=== PATIENT | female | born 1960 | race Caucasian/White ===

== ENCOUNTER 2017-12-23 17:09 | Inpatient (IN) | payer OTHER ==
[~2017-12-23] VITALS: Ht 157.5 cm; Wt 70.5 kg
[2017-12-23 17:38] LABS: ABSOLUTE BASOPHIL COUNT 0 /CUMM (0.0-0.2); ABSOLUTE EOSINOPHIL COUNT 0.2 /CUMM (0.0-0.7); ABSOLUTE GRANULOCYTE CT 3.5 /CUMM (1.4-6.5); ABSOLUTE LYMPH COUNT 2.6 /CUMM (1.2-3.4); ABSOLUTE MONOCYTE COUNT 0.7 /CUMM (0.10-0.60); BASOPHIL % 0.3 % (0.0-2.0); EOSINOPHIL % 2.5 % (0-5); GRANULOCYTE % 49.7 % (42.2-75.2); HEMATOCRIT 39.8 % (37-47); MEAN CORPUSCULAR HGB CONC 33.5 G/DL (33.0-37.0); MEAN CORPUSCULAR VOLUME 89.3 FL (81.0-99.0); MEAN PLATELET VOLUME 8.3 FL (7.4-10.4); PLATELET COUNT 236 /CUMM (130-400); RBC DISTRIBUTION WIDTH 13.6 % (11.5-14.5); RED BLOOD CELL CT 4.45 /CUMM (4.20-5.40)
--- NOTE | 2017-12-23 17:54 | ED PSYCHIATRIC COMPLAINT ---
History of Present Illness General Chief Complaint: Psychiatric Related Complaint Stated Complaint: PT WANTS TO KILL HERSELF Source: patient, old records, Epic Exam Limitations: no limitations Vital Signs & Intake/Output Vital Signs & Intake/Output Vital Signs Date Time Temp Pulse Resp B/P B/P Pulse O2 O2 Flow FiO2 Mean Ox Delivery Rate 12/24 1550 97.6 67 18 98/60 98 Room Air 12/24 1255 97.6 72 17 102/64 98 Room Air 12/24 1136 98.0 80 18 118/68 97 Room Air 12/24 0624 97.5 90 18 101/52 96 Room Air 12/24 0159 96.7 84 18 101/52 98 Room Air 12/23 2151 98.1 87 16 117/66 96 Room Air 12/23 1913 Room Air ED Intake and Output 12/24 0000 12/23 1200 Intake Total Output Total Balance Patient 150 lb Weight Weight Reported by Patient Measurement Method Allergies Coded Allergies: Penicillins (SWELLING 12/23/17) Triage Note: TRIAGE: 57 Y/O FEMALE PRESENTS FROM [place] REPORTING "I WISH I WAS ." REPORTS PLAN: "THROW MYSELF OUT IN FRONT OF A CAR, A BUS, OR A TRAIN." ACTIVELY CRYING IN TRIAGE, NO TEARS NOTED. Triage Nurses Notes Reviewed? yes Onset: Just prior to arrival Duration: hour(s):, constant, continues in ED Timing: recent history Severity: moderate, severe Associated Symptoms: suicidal ideation LMP (ages 10-50): post menopausal : No Patient currently breastfeeds: No HPI: 6 days prior to admission patient was sent [facility] for alcohol and benzodiazepine detox. 12 hours prior to admission [facility] for [facility] ideation. One and one half hours prior to admission she was discharged [facility]. She presents with depression sadness secondary to loss of in March and homelessness with thoughts of jumping off out of the car to kill herself. She denies fever chills nausea vomiting diarrhea abdominal pain chest pain shortness breath headache dysuria rash bleeding homicidal ideation hallucination. (Sharad KEATING,Roscoe) Reconcile Medications Alprazolam 0.5 MG TABLET 1 TAB PO TID ANXIETY (Reported) Citalopram Hydrobromide (Citalopram HBr) 40 MG TABLET UNKNOWN (Reported) Escitalopram Oxalate (Lexapro) 10 MG TABLET 1 TAB PO DAILY MENTAL HEALTH ( Reported) Gabapentin 300 MG CAPSULE 1 CAP PO TID UNKNOWN (Reported) Hydroxyzine Hydrochloride (Atarax) 50 MG TAB 2 TAB PO TID PRN UNKNOWN ( Reported) Methadone Hydrochloride (Methadone HCl) 10 MG TABLET 80 MG PO DAILY UNKNOWN ( Reported) Olanzapine 15 MG TABLET 1 TAB PO QPM UNKNOWN (Reported) Trazodone HCl (Unknown Strength) TABLET (Unknown Dose) UNKNOWN (Reported) (Samreen KEATING,Shaggy Combs) Past History Travel History Traveled to [place] past 21 day No Medical History Any Pertinent Medical History? see below for history Cardiovascular: HYPOTENSION Surgical History Surgical History: non-contributory Psychosocial History What is your primary language Portuguese Tobacco Use: Current Not Daily ETOH Use: occasional use Illicit Drug Use: METHADONE CLINIC Family History Hx Contributory? No (Roscoe Orourke MD) Review of Systems Review of Systems Constitutional: Reports: no symptoms. EENTM: Reports: no symptoms. Respiratory: Reports: no symptoms. Cardiovascular: Reports: no symptoms. GI: Reports: no symptoms. Genitourinary: Reports: no symptoms. Musculoskeletal: Reports: no symptoms. Skin: Reports: no symptoms. Neurological/Psychological: Reports: see HPI, depressed, emotional problems. Hematologic/Endocrine: Reports: no symptoms. Immunologic/Allergic: Reports: no symptoms. All Other Systems: Reviewed and Negative (Roscoe Orourke MD) Physical Exam Physical Exam General Appearance: well developed/nourished, alert, awake, anxious, mild distress Head: atraumatic, normal appearance Eyes: Bilateral: normal appearance, PERRL, EOMI. Ears, Nose, Throat: normal pharynx, normal ENT inspection, hearing grossly normal Neck: normal inspection, supple, full range of motion, no midline tenderness Respiratory: normal breath sounds, chest non-tender, no respiratory distress, quiet respiration, lungs clear Cardiovascular: regular rate/rhythm, normal peripheral pulses, norml femoral pulses equa Gastrointestinal: normal bowel sounds, soft, non-tender, no organomegaly Extremities: normal range of motion, no ligament instability Neurological/Psychiatric: no motor/sensory deficits, awake, agitated, alert, anxious, watermelon inspector II-XII nml as tested, depressed affect, oriented x 3 Appearance/Memory/Insight: disheveled, impaired insight Behavoir/Eye Contact/Speech: avoids eye contact, cooperative, normal speech Thoughts/Hallucinations: no apparent hallucination Skin: intact, normal color, warm/dry SAD PERSONS SAD PERSONS Response Value Age <19 or >45 years? yes 1 Depression/Hopelessness? yes 2 Previous Attempts/Psych Care yes 1 Excessive Ethanol/Drug Use? yes 1 Rational Thinking Loss? yes 2 Single//? yes 1 Social Support? has no support 1 Stated Future Intent? yes 2 Total 11 SAD PERSONS Done? yes (Sharad KEATING,Roscoe) Progress Differential Diagnosis: drug intoxication, drug overdose, drug withdrawal, electrolyte abnormality, hypoglycemia Plan of Care: Orders Procedure Date/time Status Regular Diet 12/25 B Active Lab Add-on Test 12/24 1620 Active URINE 12/24 1620 Active Lab Add-on Test 12/24 1619 Active EKG 12/24 1617 Active Patient Data - inpatient psych 12/24 1611 Active Admit to inpatient psych 12/24 1611 Active Continuous Observation Monitor 12/24 1100 Active Continuous Observation Monitor 12/24 0700 Active Vital Signs 12/24 UNK Active Nursing Misc 12/24 UNK Active Alternative Nursing Therapy 12/24 UNK Active Activity/Ambulation 12/24 UNK Active ED CRISIS PSYCH CONSULT 12/23 2055 Active TSH REFLEX 12/23 1718 Active LIPID PANEL 12/23 1718 Active GLYCOSYLATED HGB 12/23 1718 Active DIRECT LDL 12/23 1718 Active Current Medications Sig/Bonilla Start time Last Medication Dose Stop Time Status Admin Escitalopram Oxalate 10 MG 0812/25 0800 UNVr (Lexapro) Methadone HCl 80 MG DAILY@0800 12/25 0800 UNVr (Dolophine) Gabapentin 300 MG TID@0800,1400,2200 12/24 2200 UNVr (Neurontin) Nicotine 2 MG Q2P PRN 12/24 1715 UNVr (Nicotine) Acetaminophen 650 MG Q6P PRN 12/24 1630 UNVr (Tylenol) Al Hydroxide/Mg 30 ML Q4-6 PRN PRN 12/24 1630 UNVr Hydroxide (Maalox Plus) Benztropine Mesylate 1 MG Q6P PRN 12/24 1630 UNVr (Cogentin 1 MG Tablet) Benztropine Mesylate 1 MG Q6P PRN 12/24 1630 UNVr (Cogentin) Gabapentin 300 MG Q6P PRN 12/24 1630 UNVr (Neurontin) Haloperidol 5 MG Q6P PRN 12/24 1630 UNVr (Haldol) Haloperidol 5 MG Q6P PRN 12/24 1630 UNVr (Haldol) Lorazepam 2 MG Q6P PRN 12/24 163 UNVr (Ativan) Magnesium Hydroxide 30 ML AT BEDTIME PRN 12/24 163 UNVr (Milk Of Magnesia) Trazodone HCl 50 MG AT BEDTIME NEED.. 12/24 163 UNVr (Desyrel) Alprazolam 0.5 MG TID 12/23 2199 UNVr 12/24 (Xanax) 12/30 2158 163 Hydroxyzine HCl 50 MG TID 12/23 2199 UNVr 12/24 (Atarax) 163 Olanzapine 15 MG QPM 12/23 220 UNVr (Zyprexa) Laboratory Tests 12/23/17 1921: Urine Opiates Screen < 100, Methadone Screen > 735 H, Barbiturate Screen < 60, Ur Phencyclidine Scrn < 6.00, Amphetamines Screen < 100, U Benzodiazepines Scrn > 800 H, Urine Cocaine Screen < 50, Urine Cannabis Screen < 5.00, Urine Color YEL, Urine Clarity CLEAR, Urine pH 6.0, Ur Specific [place] 1.010, Urine Protein NEG, Urine Ketones NEG, Urine Nitrite NEG, Urine Bilirubin NEG, Urine Urobilinogen 0.2, Ur Leukocyte Esterase SMALL H, Ur Microscopic SEDIMENT EXAMINED, Urine WBC 3-5 H, Ur Epithelial Cells MOD H, Urine Bacteria RARE H, Urine Hemoglobin NEG, Urine Glucose NEG Hand-Off Endorsed To: Shaggy Jolley MD Endorsed Time: 190 Pending: consult (Sharad KEATING,Roscoe) Hand-Off Endorsed To: Amos Ruby MD Endorsed Time: 07 Pending: consult (Shaggy Jolley MD) Comments: 12/24/17 07:10 patient signed out to me by Dr. Jolley at shift exchange administrator. 12/24/2017 11:39:18 AM Steve has been evaluated by the water pollution specialist and bed search is in progress. 12/24/2017 5:45:46 PM patient has been evaluated by the water pollution specialist and will be admitted to inpatient psychiatry for unspecified depressive disorder. (Amos Ruby MD) Departure Departure Disposition: STILL A PATIENT Condition: Stable Clinical Impression Primary Impression: Depression with suicidal ideation Referrals: Unknown (PCP/Family) Departure Forms: Customer Survey General Discharge Information (Sharad KEATING,Roscoe) Psych Admission Note Psychiatric Admission: I have seen and evaluated STEVE SPEAR. I have also reviewed all the pertinent lab results and diagnostic results. STEVE SPEAR will be admitted to our inpatient Psychiatric unit for treatment and care. (Flori KEATING,Amos Woods)
[2017-12-23] MEDS ORDERED: LEXAPRO10 M1 PO (18:42)
[2017-12-23] MEDS ORDERED: GABAPENTIN300 M2 PO (18:43)
[2017-12-23] MEDS ORDERED: OLANZAPINE15 M1 PO (18:44)
[2017-12-23] MEDS ORDERED: HYDROXYZINE HCL50 M1 PO (18:44)
[2017-12-23] MEDS ORDERED: METHADONE HCL10 M1 PO (18:44)
[2017-12-23] MEDS ORDERED: TRAZODONE HCL100 M1 (18:45)
[2017-12-23] MEDS ORDERED: CITALOPRAM HBR40 MG (18:46)
[2017-12-23] MEDS ORDERED: ALPRAZOLAM0.5 M4 PO (18:46)
--- NOTE | 2017-12-23 22:35 | ED PSYCH CRISIS CONSULTATION ---
See Addendum Crisis Consult Basic Assessment Date of Consult: 12/23/17 Responsible Person/Accompanied By: Self-presentation Insurance Authorization: Insurance #1: Insurance name: SIMRAN CORONADO Phone number: Policy number: [id number] Group number: Authorization number: ED Provider: Patient's ED Provider: Roscoe Orourke MD Primary Care Physician: Patient's PCP: Unknown PCP's Phone Number: Current Psychiatrist: none, but gets methadone maintenance through [facility] Chief Complaint: Psychiatric Related Complaint Patient's Quote: "I've been trying to get help for seven months" Present Illness: Pt. is a 57 year old female who self-presented to the ED with suicidal thoughts and a plan to either ruin in front of a train or a truck. Pt. reports that her seven months ago and then her father soon after. Pt. reports that her mother is in a group home. Pt. reports that she was in psychiatric treament in [place] about 5 or 6 years ago and was being prescribed Gabapentin, Celexa, Xanax and Trazodone. Pt. reports that she was doing well. She reports that about two years ago she moved to [place] to take care of her mother and father who were both ailing. Pt. reports that she did not re- engage in treatment here in [place]. Pt. reports that after her father and both , she became very depressed. Pt. is somewhat vague as to the order of events in the last eight months. She reports living in [facility] about six months ago and while ling there, attempted suicide by running out into traffic. She also reports participating in [facility] in August 2017, but did not complete it because she was arrested for violating probation and was sent to [place]. Pt. reports that her charges were cleared soon after and she was released, but she did not return to the IOP. Pt. also reports that she began to abuse benzodiazepines because she was depressed after her father and . More recently, she was in [facility] from December 07 until yesterday to detox from benzodiazepines. Pt. reports that after that, she asked to be admitted to a 30 day program, but was told her insurance (Simran Gan) would not be accepted. Pt. expressed frustration that she cannot get the help that she needs and says that she "may as well just run into traffic". Pt. also reports that she went to [facility] about three weeks ago "asking for help", but that they discharged her, reccommending that she do IOP. Pt. said, "I do not want to do IOP - it never helps". Pt. also reports one other suicide attempt in the last month when she tried to OD on pills. Patient's Address: [address] [place] [address] Other Phone Number: Who Do You Live With? Significant Other Family/Informants Interviewed: cannot be obtained due to, It was too late at night to obtain collateral - it will be collected tomorrow morning. Allergies - Coded Allergies: Penicillins (SWELLING 12/23/17) Current Medications - Scheduled Medications Alprazolam 0.5 MG TABLET 1 TAB PO TID ANXIETY (Reported) Entered as Reported by Le [place]ado on 12/23/171845 Escitalopram Oxalate (Lexapro) 10 MG TABLET 1 TAB PO DAILY MENTAL HEALTH ( Reported) Entered as Reported by [place] on 12/23/171841 Gabapentin 300 MG CAPSULE 1 CAP PO TID UNKNOWN (Reported) Entered as Reported by [place]ado on 12/23/171842 Methadone Hydrochloride (Methadone HCl) 10 MG TABLET 80 MG PO DAILY UNKNOWN ( Reported) Entered as Reported by [place] on 12/23/171843 Olanzapine 15 MG TABLET 1 TAB PO QPM UNKNOWN (Reported) Entered as Reported by [place] on 12/23/17 184 Scheduled PRN Medications Hydroxyzine Hydrochloride (Atarax) 50 MG TAB 2 TAB PO TID PRN UNKNOWN ( Reported) Entered as Reported by [place] on 12/23/171843 Miscellaneous Medications Citalopram Hydrobromide (Citalopram HBr) 40 MG TABLET UNKNOWN (Reported) Entered as Reported by Le [place] on 12/23/171845 Trazodone HCl (Unknown Strength) TABLET (Unknown Dose) UNKNOWN (Reported) Entered as Reported by [place]ado on 12/23/171844 Laboratory Results: Laboratory Tests 12/23/17 192: Urine Opiates Screen < 100, Methadone Screen > 735 H, Barbiturate Screen < 60, Ur Phencyclidine Scrn < 6.00, Amphetamines Screen < 100, U Benzodiazepines Scrn > 800 H, Urine Cocaine Screen < 50, Urine Cannabis Screen < 5.00, Urine Color YEL, Urine Clarity CLEAR, Urine pH 6.0, Ur Specific [place] 1.010, Urine Protein NEG, Urine Ketones NEG, Urine Nitrite NEG, Urine Bilirubin NEG, Urine Urobilinogen 0.2, Ur Leukocyte Esterase SMALL H, Ur Microscopic SEDIMENT EXAMINED, Urine WBC 3-5 H, Ur Epithelial Cells MOD H, Urine Bacteria RARE H, Urine Hemoglobin NEG, Urine Glucose NEG 12/23/17 1718: Anion Gap 13, Estimated GFR 51 L, BUN/Creatinine Ratio 13.6, Glucose 255 H, Calcium 9.6, Total Bilirubin 0.4, AST 23, ALT 31, Alkaline Phosphatase 66, Total Protein 8.0, Albumin 4.3, Globulin 3.7, Albumin/Globulin Ratio 1.2, CBC w Diff NO MAN DIFF REQ, RBC 4.45, MCV 89.3, MCH 30.0, MCHC 33.5, RDW 13.6, MPV 8.3, Gran % 49.7, Lymphocytes % 37.8, Monocytes % 9.7 H, Eosinophils % 2.5, Basophils % 0.3, Absolute Granulocytes 3.5, Absolute Lymphocytes 2.6, Absolute Monocytes 0.7 H, Absolute Eosinophils 0.2, Absolute Basophils 0, Serum Alcohol < 10.0 Past History Past Medical History Cardiovascular: HYPOTENSION Psychiatric: alcohol dependence, ADJUSTMENT DISORDER Past Surgical History Surgical History: non-contributory Psychosocial History Strengths/Capabilities: Asking for help, has been successful in treatment in the past Physical Limitations (Interventions): none known Psychiatric Treatment History Psych Treatment Psychiatric Treatment Yes Inpatient Treatment No Outpatient Treatment Yes Location of Treatment [place], [facility] Reason for Treatment Depression, Anxiety Dates of Treatment [place] - 5 years ago; [facility] in 2[facility] Response to Treatment Reports did well in [place], has been unsatisfied with treatment here in [place]. Diagnosis by History: unk Substance Use/Abuse History Drug Use/Abuse 1 Substances Used/Abused Yes Substance Used/Abused Benzodiazepines First Use unk Last Used about 3 weeks ago How much used/taken unk How often unk For how long 6 or 7 months Route of use unk Drug Use/Abuse 2 Substances Used/Abused Yes Substance Used/Abused Heroin First Use unk Last Used unk How much used/taken unk How often unk For how long unk Route of use unk Substance Abuse Treatment Substance Abuse Treatment Past Substance Abuse TX Yes Inpatient Treatment Yes Outpatient Treatment No Location of [facility] Reason for Treatment [facility] - detox from benzo's [facility] - methadone maintenance Dates of Treatment [facility] - December 072017; [facility] - current Response to Treatment completed [facility] detox Comments: Methadone- 80mg Current Mental Status Mental Status Orientation: Person, Place, Situation Affect: Angry, Depressed, Hopeless Speech: WNL Neuro-vegetative: Anhedonia Appearance Appearance- Dress/Hygiene: disheveled Behaviors Thought Process: Disorganized Thought Content: WNL Memory: Impaired Insight: Fair SI/HI Risk Assessment Past Suicidal Ideation/Attempts Yes (repprts 2 past attempts) Current Suicidal Ideation/Att Yes (with plan ) Past Homicidal Ideation/Att: No Current Homicidal Ideation/Attempts No Degree of Intent: Plan, States Intent Danger To: Self Gravely Disabled: none Risk Factors: access to lethal means, high anxiety/distress, history of suicide atmpts, SA/MH hospitalized, substance abuse, lives alone, limited support Lethality Ratin PTSD Checklist PTSD Done? 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 Stressors - recent deaths of and father, economic. Medical - none Current GAF: 24 Comments: SI with plan and intent Departure Disposition Psych Medical Clearance Date: 12/23/17 Medically Cleared at: 2100 Time Started: 2099 Time Ended: 2129 Psychiatrist Consulted: Daya Flor MD Date Disposition Established: 12/23/17 Time Disposition Established: 2129 Plan for Disposition - Modality: Bed Search Facility: TBD Contact: n/a Telephone: n/a Rationale for Disposition: Pt. reports current suicidal thoughts with a plan to run in front of a train or a truck. Pt. is at current risk of harm to self and since there are no hospital beds available tonight, pt. will be h/o in ED to be re-assessed tomorrow. Type of IP Admission: Voluntary Additional Instructions: n/a Referrals Unknown (PCP/Family)
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
[2017-12-24 20:47] VITALS: BP 120/73
--- NOTE | 2017-12-25 07:50 | CPS PROVIDER INIT ASMT PSYCH ---
Psychiatric Admission Inspector Assembly's Note Reviewed: Yes Patient Seen and Examined: Yes Identifying Information: 57-year-old white female Chief Complaint: "I have been trying to get help for the past 7 months." Reaction to Hospitalization: The patient was admitted voluntarily History of Present Illness Onset of Illness: Approximately 8 years ago. The patient reported that she was in treatment in [place] with the same providers for about 6 years before moving to [place] 2 years ago Circumstances Leading to Admission: The patient presented to the emergency room complaining of feeling increasingly depressed, increasingly anxious, and reporting thoughts of suicide with a plan to "run into traffic." Problem(s) Justifying Need for Admission: Depression reportedly 10 out of 10 anxiety reportedly 8 out of 10 and thoughts of suicide with some thoughts about "running into traffic." Past Psychiatric History Past Diagnosis(es)- if any: Reportedly she said she was diagnosed with bipolar disorder in the past. She is also on methadone maintenance for opioid use disorder and has been with the [facility]. The record also indicated history of sedative, hypnotic or anxiolytic use disorder. Past Precipitating Factors- if any: Substance use and unstable housing - Include inpatient and outpatient treatment Treatment History: The patient reported that she was in treatment in [place] with the same and 2 providers and was stable for 6 years before having to move to [place] 2 years ago reportedly to take care of her parents. Her father have since History of Suicide Attempts or Gestures The record indicated that she reported attempting suicide "2 or 3 times". The patient reported that her last suicide attempt was a month earlier when she attempted to overdose on medications. Substance Abuse History: The patient is on methadone maintenance for an opioid use disorder she goes to the [facility] in [place] the history also reflected that she has or had "sedative, hypnotic or anxiolytic use disorder" Allergies: Coded Allergies: Penicillins (SWELLING 12/23/17) Home Med List: Alprazolam 0.5 MG PO TID ANXIETY Escitalopram 10 MG TABLET 1 TAB PO DAILY Gabapentin 300 MG 1 CAP PO TID Methadone HCl 10 MG 80 MG PO DAILY Olanzapine 15 MG PO QPM - Include any medical condition(s) that may - impact the patient's recovery/remission Past Medical History: The patient had a history of section, and rhinoplasty Past History Medical History Cardiovascular: HYPOTENSION Respiratory: NONE Gastrointestinal: constipation Renal: NONE Musculoskeletal: NONE Psychiatric: alcohol dependence, ADJUSTMENT DISORDER History of MRSA: No History of VRE: No History of CDIFF: No Isolation History: Standard Surgical History Surgical History: , RHINOPLASTY Psychiatric Family/Social Hx Family History Psychiatric Illness: Patient does not believe that there was psychiatric illnesses in the family as far as she knows Substance Use: Unknown Suicides: Denied Social History Living Situation: She was living with boyfriend, however she reports that he is currently at a rehab Significant Relationships (family/friends): Mother and boyfriend Education: GED Vocation/Occupation: Currently unemployed Legal: Denied legal history Other Social History: Patient's boyfriend is in a rehab himself Healthly Behaviors Screening Tobacco Screening Tobacco Use from ED Docu: Current Not Daily - If tobacco counseling indicated - the following topics are required. - #1 Recognizing dangerous situations. - #2 Coping Skills. - #3 Basic information about quitting. Status of Tobacco Cessation Counseling: #1, #2 AND #3 Completed Cessation Med Status Nicotine Gum Ordered Alcohol Screening - ETOH screen POS if BAL >=80 or Audit-C>= M4/F3 Audit-C Score from Diag Assess: 1 Blood Alcohol Level: Laboratory Tests 12/23 1718 Toxicology Serum Alcohol (<10 MG/DL) < 10.0 Alcohol Use Screening Results: Neg per Audit C &/or BAL - If ETOH counseling indicated - the following topics are required. - #1 Express concern about the patient's - drinking at unhealthy levels, include informing - of national norms for moderate drinking: - men <= 14 drinks/week, max 4 drinks/occasion - women <= 7 drinks/week, max 3 drinks/occasion - #2 Providing feedback, including linking alcohol to - negative physical effects (liver injury, hypertension) - negative emotional effects (relationship problems and - depression) - negative occupational consequences (reduced work - performance) - #3 Advising the patient to abstain from alcohol or - to drink below national norms for moderate drinking - (as listed above). Status of ETOH Use Counseling: N/A B/C NO ETOH Use Metabolic Screening - Screen if on a Neuroleptic Medication - Metabolic screening should include: - Blood Pressure, BMI, Glucose or Hgb A1c, & a - Lipid profile from within the past 365 days. Metabolic Screening Patient on a neuroleptic(s) . Enter below results for Hemoglobin A1C, and lipid panel if obtained during the last 365 days. BMI: 25.700 Blood Pressure: 123/60 Laboratory Results From [facility] (If applicable): will request HbA1c Lab Cholesterol 228 MG/DL H 12/23/17 1718 Cholesterol/HDL Ratio 6 % H 12/23/17 1718 HDL Cholesterol 37 mg/dL L 12/23/17 171 LDL Cholesterol Direct 104.33 mg/dL H 12/23/17 171 LDL Cholesterol, Calc ND mg/dL 12/23/17 171 Triglycerides 558 mg/dL H 12/23/17 1718 Exam and Plan Mental Status Examination Ambulation Status: The patient seemed to be a bit sedated and slightly unsteady in her gait Appearance: She looked her stated age Attitude towards examiner: She was calm and cooperative and pleasant Psychomotor activity: Reduce psychomotor activity, possibly due to sedation Behavior: There was no abnormal or bizarre behaviors Quality of speech: Reduced speech, mildly slurred, not pressured Affect: Constricted affect Mood: The patient reported that she has been feeling depressed and anxious Suicidal Ideation: Patient was until yesterday having thoughts of suicide with thoughts of wanting to "walk into traffic", she said the thought of suicide has not crossed her mind yet today because she was interviewed before 8:00 this morning Homicidal Ideation: She denied violent thoughts or thoughts of homicide Hallucinations: She denied hallucinations Paranoid/Delusional Material: She denied feeling paranoid, there were no delusions during the interview Difficulties with thought organization: She did not seem to have difficulties with thought organization. Insight: She seemed to have partial insight Judgment: Her judgment is questionable Orientation: She was alert and oriented to time, place, and person. Cognition: She seemed to have some difficulties with attention and concentration, probably due to sedation Memory Function: There was no overt impairment in his short-term memory Estimate of intellectual functioning: Average Assets/Strengths Patient Identified Assets/Strengths: Patient seems to be likable Impression/Plan Impression and Plan: 57-year-old white female who was admitted for depression and anxiety and thoughts of suicide with thoughts of wanting "to walk into traffic". 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 Factors: The patient may be discharged as soon as she has 2 consecutive days without thoughts of suicide as well as having safe discharge plan
[2017-12-25 07:55] VITALS: BP 123/60
[2017-12-25 12:19] VITALS: BP 132/49
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
[2017-12-25 16:02] VITALS: BP 106/69
--- NOTE | 2017-12-25 17:53 | SOCIAL WORKER PROG NOTE PSYCH ---
Social Work Progress Note Progress Note 2:25pm This rfp writer met with patient. She reported that she came to the hospital because "my mental health is not good." She discussed current stressors, particularly the recent loss of her as well as her father. In addition, she identified incarceration as a stressor. Patient stated that she is interested in finding a room for rent upon discharge and has friends she can stay with temporarily during the search. She is not interested in IOP as she stated that she has attended in the past and would like to find a therapist and psychiatrist/prescriber in [place]. Patient stated that she plans to return to the [facility] for Methadone, however, cannot attend their other outpatient treatment due to her insurance. Patient denied HI/AH/VH. She reported occassional SI with a plan to jump in front of a train. Patient reports feeling safe here and would inform staff if feeling unsafe or having other concerns. Patient stated that she would contact her daughter, Stas, who lives out of state regarding a family meeting (by phone) and will inform this rfp writer once she has done so.
--- NOTE | 2017-12-25 18:34 | History & Physical ---
General Information and HPI History of Present Illness: This young female is admitted for the first time to [facility] because of increased depression and suicidal ideation. She claims that she was not being helped in [place] and therefore came to [place]. She denies having any significant medical problem and claims she only has psychiatry problem and sees a psychiatrist off and on but has not been taking her medication because she could not get any medicine. She claims she went to the emergency room but was checked only a few minutes and discharged and took a bus and came to [facility]. She claimed that she used to have hepatitis C and was treated with hard bony in [place] where she was living for most of her life and came to [place] a couple of years ago to take care of her parents and claims her father as well as her in last year or so and she has been feeling very depressed. She has 1 grownup daughter who is living in [place] and has 3 grandchildren. She admits to smoking only 3 or 4 cigarettes a day. She admits to having gone through detox in the past because she was drinking too much alcohol. Allergies/Medications Allergies: Coded Allergies: Penicillins (SWELLING 12/23/17) Home Med list Alprazolam 0.5 MG TABLET 1 TAB PO TID ANXIETY (Reported) Citalopram Hydrobromide (Citalopram HBr) 40 MG TABLET UNKNOWN (Reported) Escitalopram Oxalate (Lexapro) 10 MG TABLET 1 TAB PO DAILY MENTAL HEALTH ( Reported) Gabapentin 300 MG CAPSULE 1 CAP PO TID UNKNOWN (Reported) Hydroxyzine Hydrochloride (Atarax) 50 MG TAB 2 TAB PO TID PRN UNKNOWN ( Reported) Methadone Hydrochloride (Methadone HCl) 10 MG TABLET 80 MG PO DAILY UNKNOWN ( Reported) Olanzapine 15 MG TABLET 1 TAB PO QPM UNKNOWN (Reported) Trazodone HCl (Unknown Strength) TABLET (Unknown Dose) UNKNOWN (Reported) Past History Travel History Traveled to [place] past 21 day No Medical History Cardiovascular: HYPOTENSION Respiratory: NONE Gastrointestinal: constipation Renal: NONE Musculoskeletal: NONE Psychiatric: alcohol dependence, ADJUSTMENT DISORDER History of MRSA: No History of VRE: No History of CDIFF: No Isolation History: Standard Surgical History Surgical History: non-contributory Past Family/Social History Psychosocial History Where do you live? 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 EENTM: Denies: no symptoms. Cardiovascular: Denies: no symptoms. Respiratory: Denies: no symptoms. GI: Denies: no symptoms. Genitourinary: Denies: no symptoms. Musculoskeletal: Denies: no symptoms. Skin: Denies: no symptoms. Neurological/Psychological: Reports: see HPI, anxiety, depressed, emotional problems. Hematologic/Endocrine: Denies: no symptoms. All Other Systems: Reviewed and Negative Exam & Diagnostic Data Last 24 Hrs of Vital Signs/I&O Vital Signs Date Time Temp Pulse Resp B/P B/P Pulse O2 O2 Flow FiO2 Mean Ox Delivery Rate 12/25 1602 86 106/69 12/25 1219 84 132/49 12/25 0755 98.1 97 123/60 12/24 2047 96.8 83 120/73 Intake & Output 12/25 1600 12/25 0800 12/25 0000 Intake Total Output Total Balance Patient 156 lb Weight Physical Exam General Appearance Alert, Oriented X3, Cooperative, No Acute Distress Skin No Rashes, No Breakdown, No Significant Lesion HEENT Atraumatic, PERRLA, EOMI, Mucous Membr. moist/pink Neck Supple, No JVD, No thryomegaly, +2 Carotid Pulse wo Bruit Lymphatic Cervical nl Cardiovascular Regular Rate, Normal S1, Normal S2, No Murmurs, Gallops, Rubs Lungs Clear to Auscultation, Normal Air Movement Abdomen Normal Bowel Sounds, Soft, No Tenderness, No Hepatospenomegaly, No Masses Neurological Exam Findings: Normal Gait, Normal Speech, Strength at 5/5 X4 Ext, Normal Tone, Cranial Nerves 3-12 NL, Reflexes 2+ Cranial Nerves II through XII: Within normal limits and intact Extremities No Clubbing, No Cyanosis, No Edema, Normal Pulses, No Tenderness/ Swelling Assessment/Plan Assessment: This young female is admitted for increasing depression and suicidal ideation. This is the first admission in [facility] and she admits that she was not taking her medication that was given to her by outpatient psychiatrist where she was following up off and on. She is fairly stable on physical exam although she has a history of hepatitis C and treatment with the [facility] in the past. Her admission lab work is significant for increased glucose and her nonfasting glucose was 255 at the time of admission. The rest of her labs including liver functions and electrolytes are normal. Her urine is negative for glucose the time of admission. We will get a fasting sugar and hemoglobin A1c on her to see if they're significantly elevated and if she requires any treatment. Otherwise he does not need any other treatment at this time. As Ranked By This Provider Problem List: 1. Depression with suicidal ideation Miscellaneous Miscellaneous Documentation Attending Case Discussed With: Pernell Lomas MD Primary Care Physician: Unknown Patient sees these Specialists none Level of Patient Care: STEFANIA Marion Attending MD Review Statement Attending Statement Attending MD Statement: examined this patient, reviewed EMR data (avail), discussed with nursing Attending Assessment/Plan: This young female is admitted for increased depression and suicidal ideation. He admits to not being compliant with her medication and will given to her by an outpatient psychiatrist where she does not following any regular fashion. We will get a fasting sugar and hemoglobin A1c tomorrow morning to see any significant elevation where she may need treatment with some oral hypoglycemic agent. She has a history of hepatitis C but her liver functions are normal and she claims she has been treated with hormone in the past. There is no need for any workup or treatment for that at this time.
[2017-12-25 20:03] VITALS: BP 110/62
[2017-12-26 07:45] VITALS: BP 123/66
--- NOTE | 2017-12-26 07:57 | CP SOUTH PROGRESS NOTE PSYCH ---
Psych (Inpt) Progress Note Progress Note Laboratory Tests 12/26 Glucose (65 - 99 mg/dL) 267 H Hemoglobin A1c (4.2 - 5.8 %) 6.4 H Vital Signs Date Time Temp Pulse B/P O2 O2 Flow FiO2 12/26 0745 97.0 98 123/66 12/25 2002 98.6 84 110/62 Mental Status Examination: Pt. continues to be sedated, slightly unsteady in her gait, she looked her stated age, she was calm and cooperative and pleasant, reduce psychomotor activity, possibly due to sedation, there were no abnormal or bizarre behaviors. Her speech was mildly slurred, not pressured. Constricted affect, reported that she has been feeling depressed and anxious. Patient denied thoughts of suicide, denied violent thoughts or thoughts of homicide, she denied hallucinations, she denied feeling paranoid, there were no delusions during the interview. She still had some difficulties with thought organization, did not seem to have difficulties with thought organization. She seemed to have partial insight, judgment is questionable. She was oriented to time, place, and person. She seemed to have some difficulties with attention and concentration, probably due to sedation. There was no overt impairment in his short-term memory Assessment: A 57-year-old White female who was admitted for depression and anxiety and thoughts of suicide with thoughts of wanting "to walk into traffic". She is on methadone maintenance for an opioid use disorder. The patient reported that she was in treatment in [place] with the same providers for about 6 years before moving to [place] 2 years ago. Reportedly she said she was diagnosed with bipolar disorder in the past. She is also on methadone maintenance for opioid use disorder and has been with the [facility]. The record also indicated history of sedative, hypnotic or anxiolytic use disorder. The patient reported that she was in treatment in [place] with the same and 2 providers and was stable for 6 years before having to move to [place] 2 years ago reportedly to take care of her parents, father [id number]. The record indicated that she reported attempting suicide "2 or 3 times". The patient reported that her last suicide attempt was a month earlier when she attempted to overdose on medications. [facility] in [place] the history also reflected that she has or had "sedative, hypnotic or anxiolytic use disorder. Diagnoses: 1) Unspecified Depressive disorder. 2) Opioid use disorder, on maintenance therapy. 3) Sedative, hypnotic or anxiolytic use disorder 4) Pre-Diabetis r may be Diabetic Treatment Plan Update: 1) Reduce Gabapentin to 400 mg TID (due to the patients over-sedation) 2) Start metformin 500 mg BID for suspected DM, type II (may be Zyprexa induced (?), it was stopped just yesterday, 12/25/2017) 3) Continue Lexapro 20 mg daily (it was just increased 12/25/2017) Inpatient psychiatric care with safety assessments every 15 minutes; Nursing assessments, vital signs, and patient education; UPPER INSPECTOR to obtain biopsychosocial assessment, collateral, and set up aftercare plans; Psychiatrist to evaluate patient's mental status daily and monitor medications daily
[2017-12-26 12:07] VITALS: BP 124/58
[2017-12-26 15:51] VITALS: BP 100/63
--- NOTE | 2017-12-26 17:28 | SOCIAL WORKER PROG NOTE PSYCH ---
Social Work Progress Note Progress Note This writer technical publications met with patient. She reported feeling over medicated and appeared drowsy during this meeting. Patient initially believed this writer technical publications to be from dietary and began giving her meal order. Patient was informed of who this writer technical publications was, and then reported that she recognized me as her social services manager. Patient reported feeling aggrevated with some of her peers and is avoiding those she does not get along with. In contrast with yesterday's conversation, patient stated that she would be interested in attending IOP upon discharge and would utilize the bus in order to do so. Patient was agreeable to scheduling a family meeting, but would like to wait until tomorrow to call her daughter. Pateint reported SI today, did not identify a plan, and stated that she feels safe on this unit. She denied HI/AH/VH.
[2017-12-26 19:56] VITALS: BP 127/76
[2017-12-27] VITALS (7 sets, daily range): BP systolic 94–137; BP diastolic 54–77
--- NOTE | 2017-12-27 13:17 | SOCIAL WORKER PROG NOTE PSYCH ---
Social Work Progress Note Progress Note GEE LIM [id number] 1960 GEE LIM [id number] Pended Authorization # Client Authorization # Type of Request [id number] CONCURRENT Date of Admission/ Start of Services Requested From Submission Date 12/24/2017 12/27/2017 12/27/2017
--- NOTE | 2017-12-27 13:27 | CP SOUTH PROGRESS NOTE PSYCH ---
Psych (Inpt) Progress Note Progress Note The patient's treatment and progress were discussed and the treatment team meeting this morning. The team included: RN, social work staff, group therapy and activity therapy staff, our therapist, and psychiatrist. Vital Signs: Blood pressure 114/54 mmHg, pulse 81 bpm, temperature 99.4F Mental Status Examination: Pt. continues to be sedated with some confusion, calm, cooperative, and pleasant. there were behaviors suggestive of confusion/slight disorientation (most likely medication side effects). Her speech was not as slurred today, not pressured. Constricted affect, reported that she has been feeling depressed and anxious. Patient denied thoughts of suicide, denied violent thoughts or thoughts of homicide, she denied hallucinations, she denied feeling paranoid, there were no delusions during the interview. She was oriented to place, and person. difficulties with attention and concentration, and information processing ( probably due to sedation) Assessment: A 57-year-old White female who was admitted to the inpatient psychiatric unit at [facility] on 12/24/2017 for depression, anxiety and thoughts of suicide (wanting to walk into traffic). eportedly she said she was diagnosed with bipolar disorder in the past. She is also on methadone maintenance for opioid use disorder and has been with the [employer]. The record also indicated history of sedative, hypnotic or anxiolytic use disorder, record indicated that she reported attempting suicide "2 or 3 times". The patient reported that her last suicide attempt was a month earlier when she attempted to overdose on medications. [facility] [place] the history also reflected that she has or had "sedative, hypnotic or anxiolytic use disorder. Most Likely Diagnoses: 1) Unspecified Depressive Disorder. 2) Opioid Use Disorder, on maintenance therapy. 3) Sedative, Hypnotic or anxiolytic use disorder 4) Pre-Diabetis vs. Diabetis Treatment Plan Update: 1) Continue Gabapentin 400 mg TID 2) Continue Metformin 500 mg BID 3) Continue Lexapro 20 mg daily 4) D/C Hydroxyzine 5) Reduce Methadone to 70 mg daily
--- NOTE | 2017-12-27 18:25 | SOCIAL WORKER PROG NOTE PSYCH ---
Social Work Progress Note Progress Note This commercial insurance underwriter met with patient. She described her mood as "calm" at the time of this meeting, however, reported that she had been feeling aggrevated and cheung early due to experiencing peers on the unit as disrespectful to staff. Patient stated that she would like to have a phone meeting with her daughter, Stas Hopkins, when she is not as tired. Patient denied SI/HI/AH/VH. She experessed interest in individual therapy and medication management to be her discharge plan from this hospital. Patient presented as very lethargic during this meeting and at one point feel asleep.
[2017-12-28 07:44] VITALS: BP 117/70
[2017-12-28 12:09] VITALS: BP 102/61
--- NOTE | 2017-12-28 13:25 | CP SOUTH PROGRESS NOTE PSYCH ---
Psych (Inpt) Progress Note Progress Note The patient's treatment and progress were discussed and the treatment team meeting this morning. The team included: RN, DEPENDENCY PROGRAM DIRECTOR, group therapy and activity therapy staff, our therapist, and psychiatrist. Sedation and periods of confusion/suspicion of delirium in the past 24 hours were reported during treatment team meeting this morning Mental Status Examination: Pt. was seen around 1:20 PM. She was less sedated, she was not confused, she was calm, cooperative, and pleasant. Her speech was not slurred this afternoon, not pressured. She complained that she is feeling depressed and did in fact show constricted affect, denied thoughts of suicide, denied violent thoughts or thoughts of homicide, she denied hallucinations, she denied feeling paranoid, there were no delusions during the interview. She was oriented to place and person. Still having some difficulties with attention, concentration, and information processing (probably lingering side effects due to sedation/medication side effects) Assessment: A 57-year-old White female who was admitted to the inpatient psychiatric unit at [facility] on 12/24/2017 for depression, anxiety and thoughts of suicide (wanting to walk into traffic). She said she was diagnosed with bipolar disorder in the past. She is also on methadone maintenance for opioid use disorder and has been with the [facility]. The record also indicated history of sedative, hypnotic or anxiolytic use disorder, record indicated that she reported attempting suicide "2 or 3 times". She gets her methadone at the [facility] in [place] Most Likely Diagnoses: 1) Unspecified Depressive Disorder. 2) Opioid Use Disorder, on maintenance therapy. 3) Sedative, Hypnotic or anxiolytic use disorder 4) Pre-Diabetis vs. Diabetis ?? History of Bipolar (??) Treatment Plan Update: 1) Increase Lexapro to 30 mg daily 2) Continue Metformin 500 mg BID 3) Continue Gabapentin 400 mg TID 4) Continue Methadone 70 mg daily 5) add trazodone 50 mg as needed at bedtime if she is having insomnia
--- NOTE | 2017-12-28 14:13 | SOCIAL WORKER PROG NOTE PSYCH ---
Social Work Progress Note Progress Note This short story writer met with patient. She continues to present as letheragic, however, less so that previous days. Patient stated that she has been trying to reach her daughter to discuss the family meeting and will do so later today. Patient expressed interest in continuing with treatment through upon discharge. This short story writer and patient discussed concerns about travel distance from [place] to [place] should she continue with providers. Patient was agreeable to this short story writer contacting [facility] in [place] to inquire about individual therapy and medication management options. She stated that she does not want any referrals to [place] or [facility]. Upon this meeting ending, patient proceeded to join the group that was occurring in the kitchen.
[2017-12-28 16:14] VITALS: BP 101/63
[2017-12-28 19:49] VITALS: BP 97/63
[2017-12-29 07:43] VITALS: BP 112/67
[2017-12-29 11:48] VITALS: BP 113/54
--- NOTE | 2017-12-29 12:42 | CP SOUTH PROGRESS NOTE PSYCH ---
Psych (Inpt) Progress Note Progress Note Include the following elements, when applicable: Involvement in the active treatment of the patient with behavioral observations of the patient and the patient's response to the treatment. Review of the ongoing treatment process in the context of the treatment plan. Indication of how multi-disciplinary staff members are carrying out the treatment plan. Plans for future interventions and recommendations for revision of the treatment plan. Liaison with other physicians/providers. Progress Note: Pt spoke at length about her bf, struggles with soberity, grief after husbands . Feels she is coping better overall. Would prefer methadone to stay at original dosing put understands that plan by primary team will continue. Current Medications Sig/Bonilla Start time Last Medication Dose Route Stop Time Status Admin Acetaminophen 650 MG Q6P PRN 12/24 1630 AC 12/29 PO 0803 Al Hydroxide/Mg 30 ML Q4-6 PRN PRN 12/24 1630 AC 12/27 Hydroxide PO 2115 Benztropine Mesylate 1 MG Q6P PRN 12/24 1630 AC PO Benztropine Mesylate 1 MG Q6P PRN 12/24 1630 DC IM Escitalopram Oxalate 30 MG 12/29 0800 AC 12/29 PO 0758 Escitalopram Oxalate 20 MG 12/26 0800 DC 12/28 PO 0742 Gabapentin 400 MG TID@0800,1400,2200 12/26 1400 AC 12/29 PO 0758 Gabapentin 300 MG Q6P PRN 12/24 1630 AC 12/27 PO 1754 Haloperidol 5 MG Q6P PRN 12/24 1630 AC PO Haloperidol 5 MG Q6P PRN 12/24 1630 DC IM Lorazepam 2 MG Q6P PRN 12/24 1630 DC IM Magnesium Hydroxide 30 ML AT BEDTIME PRN 12/24 1630 AC PO Metformin HCl 500 MG 0800,1700 12/26 1700 AC 12/29 PO 0757 Methadone HCl 70 MG DAILY@12/28 0800 AC 12/29 PO 0801 Nicotine 2 MG Q2P PRN 12/24 1715 AC PO Trazodone HCl 50 MG AT BEDTIME NEED.. 12/28 1330 AC PO Trazodone HCl 50 MG AT BEDTIME NEED.. 12/24 1630 AC 12/28 PO 2000 Vital Signs Date Time Temp Pulse Resp B/P B/P Pulse O2 O2 Flow FiO2 Mean Ox Delivery Rate 12/29 1148 75 113/54 12/29 0743 98.1 77 112/67 12/28 1949 97.9 64 97/63 12/28 1614 69 101/63 MSE General appearance: good hygiene and grooming; Attitude: cooperative; Eye contact: appropriate; Movement: no psychomotor agitation or slowing; Speech: nl fluency, nl rate/rhythm, nl volume, nl prosody; Mood: "good" Affect: irritable at times, flat, appropriate, constricted, non-labile, congruent; Thought process: linear and goal-directed; Thought content: denied SI or HI, no paranoid ideation; Perception: denied hallucinations- auditory, visual, does not appear to be responding to internal stimuli; I/J: limited A/P: Pt with MDD and SI now with improved mood. -Continue current medication regimen -Encourage integration into the milieu
[2017-12-29 16:09] VITALS: BP 104/69
[2017-12-29 19:43] VITALS: BP 120/69
[2017-12-30 07:43] VITALS: BP 119/56
--- NOTE | 2017-12-30 10:58 | CP SOUTH PROGRESS NOTE PSYCH ---
Psych (Inpt) Progress Note Progress Note Include the following elements, when applicable: Involvement in the active treatment of the patient with behavioral observations of the patient and the patient's response to the treatment. Review of the ongoing treatment process in the context of the treatment plan. Indication of how multi-disciplinary staff members are carrying out the treatment plan. Plans for future interventions and recommendations for revision of the treatment plan. Liaison with other physicians/providers. Progress Note: Pt very excited about [facility]. She notes that she was able to speak with her dad. Apparently he thought she as she has not spoken to him in over six months. This has lead to some poor mood today as she has been reflecting on her life and her relationship with her family. She denies SI or HI. Current Medications Sig/Bonilla Start time Last Medication Dose Route Stop Time Status Admin Acetaminophen 650 MG Q6P PRN 12/24 1630 AC 12/29 PO 0803 Al Hydroxide/Mg 30 ML Q4-6 PRN PRN 12/24 1630 AC 12/27 Hydroxide PO 2115 Benztropine Mesylate 1 MG Q6P PRN 12/24 1630 AC PO Escitalopram Oxalate 30 MG 12/29 0800 AC 12/30 PO 0920 Gabapentin 400 MG TID@0800,1400,2200 12/26 1400 AC 12/30 PO 0921 Gabapentin 300 MG Q6P PRN 12/24 1630 AC 12/27 PO 1754 Haloperidol 5 MG Q6P PRN 12/24 1630 AC PO Magnesium Hydroxide 30 ML AT BEDTIME PRN 12/24 1630 AC PO Metformin HCl 500 MG 0800,1700 12/26 1700 AC 12/30 PO 0920 Methadone HCl 70 MG DAILY@12/28 0800 AC 12/30 PO 0624 Nicotine 2 MG Q2P PRN 12/24 1715 AC PO Trazodone HCl 50 MG AT BEDTIME NEED.. 12/28 1330 AC 12/29 PO 2211 Trazodone HCl 50 MG AT BEDTIME NEED.. 12/24 1630 AC 12/28 PO 1999 Vital Signs Date Time Temp Pulse Resp B/P B/P Pulse O2 O2 Flow FiO2 Mean Ox Delivery Rate 12/30 0743 97.5 78 119/56 12/29 1943 97.6 75 120/69 12/29 1609 83 104/69 12/29 1148 75 113/54 MSE General appearance: good hygiene and grooming; Attitude: cooperative; Eye contact: appropriate; Movement: no psychomotor agitation or slowing; Speech: nl fluency, nl rate/rhythm, nl volume, nl prosody; Mood: "good" Affect: irritable at times, flat, appropriate, constricted, non-labile, congruent; Thought process: linear and goal-directed; Thought content: denied SI or HI, no paranoid ideation; Perception: denied hallucinations- auditory, visual, does not appear to be responding to internal stimuli; I/J: limited A/P: Pt with MDD and SI now with improved mood. -Continue current medication regimen -Encourage integration into the milieu
[2017-12-30 12:08] VITALS: BP 112/56
[2017-12-30 15:26] VITALS: BP 107/64
[2017-12-30 19:52] VITALS: BP 111/64
[2017-12-31 07:57] VITALS: BP 125/62
--- NOTE | 2017-12-31 08:13 | CP SOUTH PROGRESS NOTE PSYCH ---
Psych (Inpt) Progress Note Progress Note Laboratory Tests 12/31 12/31 Sodium (137 - 145 mmol/L) 143 Potassium (3.5 - 5.1 mmol/L) 4.4 Chloride (98 - 107 mmol/L) 102 Carbon Dioxide (22 - 30 mmol/L) 27 Anion Gap (5 - 16) 13 BUN (7 - 17 mg/dL) 18 H Creatinine (0.5 - 1.0 mg/dL) 1.1 H Estimated GFR (>60 ml/min) 51 L BUN/Creatinine Ratio (7 - 25 %) 16.4 Amylase (30 - 110 U/L) Cancelled 36 Lipase (23 - 300 U/L) 207 The patient's treatment and progress were discussed and the treatment team meeting this morning. The team included: RN, EPIC AMBULATORY ANALYSTS, group therapy and activity therapy staff, our therapist, and psychiatrist. Mental Status Examination: Pt. was alert and oriented today. She complained of a feeling of "heaviness in her stomach", close to nausea. I ordered follow up blood work to monitor progress after discontinuing Zyprexa and starting metformin she was calm, cooperative, and pleasant. Her speech was not slurred this afternoon, not pressured. She complained that she is feeling depressed and did in fact show constricted affect, denied thoughts of suicide, denied violent thoughts or thoughts of homicide, she denied hallucinations, she denied feeling paranoid, there were no delusions during the interview. She was oriented to place and person. Still having some difficulties with attention, concentration, and information processing (probably lingering side effects due to sedation/medication side effects) Assessment: A 57-year-old White female who was admitted to the inpatient psychiatric unit at [facility] on 12/24/2017 for depression, anxiety and thoughts of suicide (wanting to walk into traffic). She said she was diagnosed with bipolar disorder in the past. She is also on methadone maintenance for opioid use disorder and has been with the [email or web address]. The record also indicated history of sedative, hypnotic or anxiolytic use disorder, record indicated that she reported attempting suicide "2 or 3 times". She gets her methadone at the [facility] in [place] Most Likely Diagnoses: 1) Unspecified Depressive Disorder. 2) Opioid Use Disorder, on maintenance therapy. 3) Sedative, Hypnotic or anxiolytic use disorder 4) Likely Diabetes Mellitus (duration unknown, patient mother and 2 brothers have diabetes) 5) Hepatitis C 6) Low eGFR, elevated BUN and Creatinine Treatment Plan Update: Continue same medications Re-Consult Hospitalist regarding the mild impairment in [facility] in [place] Most Likely Diagnoses: 1) Unspecified Depressive Disorder. 2) Opioid Use Disorder, on maintenance therapy. 3) Sedative, Hypnotic or anxiolytic use disorder 4) Pre-Diabetis vs. Diabetis ?? History of Bipolar (??) Treatment Plan Update: 1) Increase Lexapro to 30 mg daily 2) Continue Metformin 500 mg BID 3) Continue Gabapentin 400 mg TID 4) Continue Methadone 70 mg daily 5) add trazodone 50 mg as needed at bedtime if she is having insomnia
[2017-12-31 12:10] VITALS: BP 102/52
--- NOTE | 2017-12-31 14:46 | SOCIAL WORKER PROG NOTE PSYCH ---
Social Work Progress Note Progress Note [facility] concurrent review completed: Member Name Member ID Member Subscriber Name Subscriber ID GEE LIM [id number] GEE LIM [id number] Pended Authorization # Client Authorization # Type of Request [id number] CONCURRENT Date of Admission/ Start of Services Requested From Submission Date 12/24/2017 12/31/2017 12/31/2017 Level of Service Type of Service Level of Care Type of Care INPATIENT/OC [facility] Inpatient [facility] - Inpatient Hospital Reason Code P77
[2017-12-31 15:49] VITALS: BP 92/52
--- NOTE | 2017-12-31 16:33 | SOCIAL WORKER PROG NOTE PSYCH ---
See Addendum Social Work Progress Note Progress Note This journalists and other writers spoke with Ed at [facility] ([phone]) to make a referral. He requested that the referral is made by the patient's clinician at the [facility]. This journalists and other writers attempted to identify her [facility] clinician. It was requested that this journalists and other writers fax a release to [phone], attn: clinician for Steve Hopkins, and that the clinician would contact this journalists and other writers upon receipt. Fax was sent at 11:29am. This journalists and other writers met with patient. She was informed of the discussion with [facility] as well as the faxing of the [facility]. Patient informed this journalists and other writers that she does not have someone to stay with while looking for a room to rent, as her boyfriend is currently in treatment elsewhere. Patient acknowledged that this is different from prior information she gave this journalists and other writers. Patient stated that she would be interested in going to [facility] in [place]. Patient was agreeable to a family meeting with her daughter, Daniel Hopkins ([phone]). (A vm was left for her daughter with a call back number.) Patient denied SI, "I'm just very depressed." Patient was actively engaged in this conversation.
[2017-12-31 19:57] VITALS: BP 106/59
[2018-01-01 07:47] VITALS: BP 101/60
--- NOTE | 2018-01-01 09:08 | CP SOUTH PROGRESS NOTE PSYCH ---
Psych (Inpt) Progress Note Progress Note Vital Signs Date Time Temp Pulse B/P 01/01 1221 80 111/58 01/01 0747 98.3 86 101/60 The patient's treatment and progress were discussed and the treatment team meeting this morning. The team included: RN, GEOGRAPHIC INFORMATION SYSTEMS DIRECTOR, group therapy and activity therapy staff, our therapist, and psychiatrist. Nursing staff reported that the patient continued to complain of some nausea (? metformin effect?) Mental Status Examination: The patient looked tired around 3 PM when I interviewed her. She also seemed to have dysphoric affect and looked depressed. She did report feeling depressed and anxious. She reported that she has been having a stomachache. She reported that she saw the media production operator couple of hours ago. Pt. was alert and oriented today. She was calm, cooperative, and pleasant. Her speech was not slurred , not pressured. She denied thoughts of suicide, denied violent thoughts or thoughts of homicide, she denied hallucinations, she denied feeling paranoid, there were no delusions during the interview. She continues to have some difficulties with attention, concentration, and information processing Assessment: A 57-year-old White female who was admitted to the inpatient psychiatric unit at [facility] on 12/24/2017 for depression, anxiety and thoughts of suicide (wanting to walk into traffic). She said she was diagnosed with bipolar disorder in the past. She is also on methadone maintenance for opioid use disorder and has been with the [employer]. The record also indicated history of sedative, hypnotic or anxiolytic use disorder, record indicated that she reported attempting suicide "2 or 3 times". The patient had shown gradual improvement and less sedation. She however found that to during this admission that she may have developed diabetes mellitus type 2 and feels depressed and anxious about it she have a strong family history with 2 brothers who developed diabetes around her age as well as her mother. She is also depressed because she is still having some nausea or upset stomach today and just met with the media production operator. In addition, she found out that she in fact does not have a place to stay at the present time and may be looking at alternative housing options Most Likely Diagnoses: 1) Unspecified Depressive Disorder. 2) Opioid Use Disorder, on maintenance therapy. 3) Sedative, Hypnotic or anxiolytic use disorder 4) Likely Diabetes Mellitus (duration unknown, just discovered, patient's mother and 2 brothers have diabetes) 5) Hepatitis C 6) Low eGFR, elevated BUN and Creatinine Treatment Plan Update: I reduce the patient's Metformin dose to just 500 mg once daily in the afternoon and will await the full consultation from Dr. Chang
[2018-01-01 12:21] VITALS: BP 111/58
--- NOTE | 2018-01-01 15:15 | PN- Att Addend ---
Attending Addendum Attending Brief Note S: Called to evaluate patient for abdominal discomfort. The patient stated that since beginning Metformin has had some mid abdominal discomfort with nausea that may be worse post prandial. No fevers, etc. O: VS: Current Medications Sig/Bonilla Start time Last Medication Dose Route Stop Time Status Admin Acetaminophen 650 MG Q6P PRN 12/24 1630 AC 12/31 PO 1704 Al Hydroxide/Mg 30 ML Q4-6 PRN PRN 12/24 1630 AC 12/27 Hydroxide PO 2115 Benztropine Mesylate 1 MG Q6P PRN 12/24 1630 AC PO Escitalopram Oxalate 30 MG 12/29 0800 AC 01/01 PO 0800 Gabapentin 400 MG TID@0800,1400,2200 12/26 1400 AC 01/01 PO 1438 Gabapentin 300 MG Q6P PRN 12/24 1630 AC 12/27 PO 1754 Haloperidol 5 MG Q6P PRN 12/24 1630 AC PO Magnesium Hydroxide 30 ML AT BEDTIME PRN 12/24 1630 AC PO Metformin HCl 500 MG 1700 01/01 1700 CAN PO Metformin HCl 500 MG 0800,1700 12/26 1700 DC 01/01 PO 0800 Methadone HCl 70 MG DAILY@12/28 0800 AC 01/01 PO 0802 Nicotine 2 MG Q2P PRN 12/24 1715 AC PO Ondansetron HCl 4 MG Q6PRN PRN 12/31 1130 AC 01/01 PO 1136 Trazodone HCl 100 MG AT BEDTIME NEED.. 01/01 1515 AC PO Trazodone HCl 50 MG AT BEDTIME NEED.. 12/24 1630 DC 12/31 PO 2118 Vital Signs Date Time Temp Pulse Resp B/P B/P Pulse O2 O2 Flow FiO2 Mean Ox Delivery Rate 01/01 1623 81 102/56 01/01 1221 80 111/58 Physical Exam: Chest: clear Cor: RRR nl S1, S2 w/o murm Abd: BS+, soft, no significant tenderness Ext: no edema Labs: Hgb A1C 6.4 12/26/17 Impression/Plan: #Abdominal Pain- onset of pain and nausea correlates with start of Metformin and suspect it is a side effect for this patient. Plan: Will discontinue Metformin and follow symptoms. If symptoms not resolving will consider further evaluation- bloodwork/US , etc. #Hyperglycemia- patient was begun on Metformin due to high glucose. On consistent carbohydrate diet. Plan: As above, will discontinue Metformin at present. Will check glucose level on CC3 diet in morning and decide if should start another oral agent.
[2018-01-01 16:23] VITALS: BP 102/56
--- NOTE | 2018-01-01 16:44 | SOCIAL WORKER PROG NOTE PSYCH ---
Social Work Progress Note Progress Note This card writer hand met with patient. Patient stated that she was not feeling well ( stomach ache) and believes it to be a side effect of one of the medications. Patient stated that she has discussed this with her psychiatrist and nursing. She described her mood as "alright." She reported ongoing SI consisting of the thought, "I'm just sick of all of this." She denied any plan associated with the SI. Patient was informed that this card writer hand has not yet received a response from the from her daughter yesterday. 4:43pm This card writer hand left for patient's daughter, Grant ([phone]), with this card writer hand's call back number as well as the nurse's station number.
[2018-01-01 19:58] VITALS: BP 118/68
[2018-01-02 08:13] VITALS: BP 115/63
--- NOTE | 2018-01-02 09:10 | CP SOUTH PROGRESS NOTE PSYCH ---
Psych (Inpt) Progress Note Progress Note The patient's treatment and progress were discussed and the treatment team meeting this morning. The team included: RN, DIRECTOR OF PSYCHIATRY, OTR/L, and psychiatrist. I reviewed Dr. Chang notes Mental Status Examination: The patient looked tired around 2 PM when I interviewed her. She she reported it is because that she is still not feeling physically well. She reports that she is feeling nausea and that this morning she vomited. Metformin was discontinued continued so today would be her first full day without it. She seemed to have dysphoric affect and looked depressed. She did report feeling depressed and anxious. Pt. was alert and oriented today. She was calm, cooperative, and pleasant. Her speech was not slurred , not pressured. She denied thoughts of suicide, denied violent thoughts or thoughts of homicide, she denied hallucinations, she denied feeling paranoid, there were no delusions during the interview. She continues to have some difficulties with attention, concentration, and information processing Assessment: A 57-year-old White female who was admitted to the inpatient psychiatric unit at [facility] on 12/24/2017 for depression, anxiety and thoughts of suicide (wanting to walk into traffic). She said she was diagnosed with bipolar disorder in the past. She is also on methadone maintenance for opioid use disorder and has been with the [employer]. The record also indicated history of sedative, hypnotic or anxiolytic use disorder, record indicated that she reported attempting suicide "2 or 3 times". The patient had shown gradual improvement and less sedation. She however found that to during this admission that she may have developed diabetes mellitus type 2 and feels depressed and anxious about it she have a strong family history with 2 brothers who developed diabetes around her age as well as her mother. She is also depressed because she is still having some nausea or upset stomach today and just met with the executive community planning. In addition, she found out that she in fact does not have a place to stay at the present time and may be looking at alternative housing options Most Likely Diagnoses: 1) Unspecified Depressive Disorder. 2) Opioid Use Disorder, on maintenance therapy. 3) Sedative, Hypnotic or anxiolytic use disorder 4) Likely Diabetes Mellitus (duration unknown, just discovered, patient's mother and 2 brothers have diabetes) 5) Hepatitis C 6) Low eGFR, elevated BUN and Creatinine Treatment Plan Update: Metformin was discontinued, otherwise all other medications stayed the same.
--- NOTE | 2018-01-02 12:03 | SOCIAL WORKER PROG NOTE PSYCH ---
Kaelyn Howe 01/02/18 1201: Social Work Progress Note Progress Note Personal Care Home Administrator sent a referral to [facility] in [place] ( what Steve had referred to as [facility]). Personal Care Home Administrator spoke with front office supervisor who explained what to send and about the program. desk interviewer employee, Mary Lima, stated that the wait list is usually around 30 days and that she would discuss the referral with the admission coordinator and call Roxanne Whaley's number back. Personal Care Home Administrator also sent referrals to [place] [facility]. Personal Care Home Administrator will follow up tomorrow to make sure that the faxed referrals were received and to do screenings. attempted to meet with Steve during the day, but was unable to do so as Steve reported to not be feeling well and asked to come back later.
[2018-01-02 12:05] VITALS: BP 109/61
--- NOTE | 2018-01-02 15:20 | SOCIAL WORKER PROG NOTE PSYCH ---
Social Work Progress Note Progress Note Note created in error. Please see Kaelyn Howe's note from today.
[2018-01-02 16:19] VITALS: BP 99/52
--- NOTE | 2018-01-02 18:56 | SOCIAL WORKER PROG NOTE PSYCH ---
Social Work Progress Note Progress Note Completed [facility] review online - check [facility] website for next review date.
[2018-01-02 19:55] VITALS: BP 120/73
[2018-01-03 08:02] VITALS: BP 102/51
[2018-01-03 11:54] VITALS: BP 92/62
--- NOTE | 2018-01-03 13:36 | CP SOUTH PROGRESS NOTE PSYCH ---
Psych (Inpt) Progress Note Progress Note patient's treatment and progress were discussed and the treatment team meeting this morning. The team included: RN, SPIRAL WINDER, OTR/L, and psychiatrist. Mental Status Examination: looked tired, reported diarrhea, nausea, no fever, no abdominal pain looked depressed, felt depressed, anxious, and withdrawn alert and oriented, calm, cooperative, speech was not slurred , not pressured. She denied thoughts of suicide, denied violent thoughts or thoughts of homicide, she denied hallucinations, she denied feeling paranoid, there were no delusions during the interview. Assessment: A 57-year-old White female who was admitted to the inpatient psychiatric unit on 12/24/2017 for depression, anxiety and thoughts of suicide (wanting to walk into traffic). The patient had shown gradual improvement and less sedation. She however found that to during this admission that she may have developed diabetes mellitus type 2 and feels depressed and anxious about it she have a strong family history with 2 brothers who developed diabetes around her age as well as her mother. She is also depressed because she is still having some nausea or upset stomach today and just met with the game engineer. In addition, she found out that she in fact does not have a place to stay at the present time and may be looking at alternative housing options Most Likely Diagnoses: 1) Unspecified Depressive Disorder. 2) Opioid Use Disorder, on maintenance therapy. 3) Sedative, Hypnotic/Anxiolytic use disorder 4) Diabetes Mellitus (duration unknown, just discovered, patient's mother and 2 brothers have diabetes) 5) Hepatitis C 6) Low eGFR, elevated BUN and Creatinine Treatment Plan Update: Reduce Lexapro to 20 mg daily 2) Opioid Use Disorder, on maintenance therapy. 3) Sedative, Hypnotic or anxiolytic use disorder 4) Likely Diabetes Mellitus (duration unknown, just discovered, patient's mother and 2 brothers have diabetes) 5) Hepatitis C 6) Low eGFR, elevated BUN and Creatinine Treatment Plan Update: Metformin was discontinued, otherwise all other medications stayed the same.
[2018-01-03 15:51] VITALS: BP 99/45
--- NOTE | 2018-01-03 18:11 | SOCIAL WORKER PROG NOTE PSYCH ---
Social Work Progress Note Progress Note This engineering writer met with patient. She described her mood as "depression." She denied SI/HI/AH/VH. She stated that she is interested in returning to [place] upon discharge if she is accepted to the program. Patient stated that she spoke with her daughter, Daniel, and a phone meeting is scheduled for tomorrow at 11am.
[2018-01-03 19:48] VITALS: BP 97/52
[2018-01-04 06:25] VITALS: BP 119/67
--- NOTE | 2018-01-04 08:22 | CP SOUTH PROGRESS NOTE PSYCH ---
Psych (Inpt) Progress Note Progress Note Pt.'s treatment and progress were discussed and the treatment team meeting this morning. The team included: RN, GLASS CUTTER, OTR/L, Art Therapist, and psychiatrist. Mental Status Examination: 11:10 AM attempted conference phone call with daughter but got voice mail Patient feeling "a tiny bit better", looked tired, reported diarrhea, nausea, no fever, no abdominal pain, looked depressed, felt depressed, less withdrawn, alert and oriented, calm, cooperative, speech was not slurred , not pressured. She denied thoughts of suicide, denied violent thoughts or thoughts of homicide, she denied hallucinations, she denied feeling paranoid, there were no delusions during the interview. Assessment: A 57-year-old White female who was admitted to the inpatient psychiatric unit on 12/24/2017 for depression, anxiety and thoughts of suicide (wanting to walk into traffic). does not have a place to stay at the present time and may be looking at going to a [place] [facility] [place] Most Likely Diagnoses: 1) Unspecified Depressive Disorder. 2) Opioid Use Disorder, on maintenance therapy. 3) Sedative, Hypnotic/Anxiolytic use disorder 4) Diabetes Mellitus (duration unknown, just discovered, patient's mother and 2 brothers have diabetes) 5) Hepatitis C 6) Low eGFR, elevated BUN and Creatinine Treatment Plan Update: Repeat electrolytes and BUn, Cr Continue Lexapro 20 mg daily PRN Trazodone 100 mg at bedtime 6) Low eGFR, elevated BUN and Creatinine Treatment Plan Update: Reduce Lexapro to 20 mg daily
--- NOTE | 2018-01-04 09:03 | SOCIAL WORKER PROG NOTE PSYCH ---
See Addendum Social Work Progress Note Progress Note TC - [facility] - left with intake #[phone] opt #1, requesting if will consider patient - clinical faxed 01/03/18. Plan to fax PPD - will need to order (Janelle Castanon is aware).
[2018-01-04 12:13] VITALS: BP 110/65
[2018-01-04 15:38] VITALS: BP 93/58
--- NOTE | 2018-01-04 16:12 | SOCIAL WORKER PROG NOTE PSYCH ---
Social Work Progress Note Progress Note This insurance underwriter called [facility] in [place] ([phone]) and asked for Ana in interest of completing a phone screening. This insurance underwriter spoke with Tiny who stated that Ana left for the day and suggested that this insurance underwriter call her on Sunday. She stated that no other staff would be able to conduct the screening today.
--- NOTE | 2018-01-04 17:53 | SOCIAL WORKER PROG NOTE PSYCH ---
Social Work Progress Note Progress Note Dr. Lomas, this senior grant writer and the patient attempted to reach her daughter by phone for a family meeting. Patient stated that she spoke with her daughter yesterday and they agreed to an 11am phone call. Patient's daughter did not answer the call or return the call ( with call back number was provided). This senior grant writer and patient discussed referral possibilities. Patient stated that she would call [facility] to schedule a CAN assessment. She was informed that this senior grant writer would call [facility] in [place] for a screening this afternoon. Patient was also agreeable to a referral to [facility]. This senior grant writer spoke with [facility], who stated that they accept her insurance and accept patients on Methadone. They stated that patients would need to utilize the [facility] Methadone program and that previous patients have been able to transfer their treatment if needed. [facility] anticipates to have beds available mid-week of next week. The clinical was faxed to [phone].
[2018-01-04 20:02] VITALS: BP 91/52
[2018-01-05 07:43] VITALS: BP 82/58
[2018-01-05 08:55] VITALS: BP 110/68
--- NOTE | 2018-01-05 11:49 | CP SOUTH PROGRESS NOTE PSYCH ---
Psych (Inpt) Progress Note Progress Note Include the following elements, when applicable: Involvement in the active treatment of the patient with behavioral observations of the patient and the patient's response to the treatment. Review of the ongoing treatment process in the context of the treatment plan. Indication of how multi-disciplinary staff members are carrying out the treatment plan. Plans for future interventions and recommendations for revision of the treatment plan. Liaison with other physicians/providers. Progress Note: Pt notes that diarrhea has basically resolved. Feeling much better doay. She notes that sleep was "on and off." Denies SI or HI. Current Medications Sig/Bonilla Start time Last Medication Dose Route Stop Time Status Admin Acetaminophen 650 MG Q6P PRN 12/24 1630 AC 12/31 PO 1704 Al Hydroxide/Mg 30 ML Q4-6 PRN PRN 12/24 1630 AC 01/02 Hydroxide PO 1453 Benztropine Mesylate 1 MG Q6P PRN 12/24 1630 AC PO Bismuth Subsalicylate 30 ML Q4P PRN 01/03 1545 AC PO Escitalopram Oxalate 20 MG 01/04 0800 AC 01/05 PO 0858 Gabapentin 400 MG TID@0800,1400,2200 12/26 1400 AC 01/05 PO 0858 Gabapentin 300 MG Q6P PRN 12/24 1630 AC 12/27 PO 1754 Haloperidol 5 MG Q6P PRN 12/24 1630 AC PO Loperamide HCl 2 MG Q3P PRN 01/03 1145 AC 01/04 PO 1050 Magnesium Hydroxide 30 ML AT BEDTIME PRN 12/24 1630 AC PO Methadone HCl 70 MG DAILY@12/28 0800 01/05 PO 0858 Nicotine 2 MG Q2P PRN 12/24 1715 AC PO Ondansetron HCl 4 MG Q6PRN PRN 12/31 1130 01/04 PO 0626 Trazodone HCl 100 MG AT BEDTIME NEED.. 01/01 1515 01/04 PO 2213 Laboratory Tests 01/05 600 Chemistry Sodium (137 - 145 mmol/L) 146 H Potassium (3.5 - 5.1 mmol/L) 4.5 Chloride (98 - 107 mmol/L) 103 Carbon Dioxide (22 - 30 mmol/L) 30 Anion Gap (5 - 16) 13 BUN (7 - 17 mg/dL) 15 Creatinine (0.5 - 1.0 mg/dL) 1.1 H Estimated GFR (>60 ml/min) 51 L BUN/Creatinine Ratio (7 - 25 %) 13.6 Vital Signs Date Time Temp Pulse Resp B/P B/P Pulse O2 O2 Flow FiO2 Mean Ox Delivery Rate 01/05 0855 110/68 01/05 0743 96.9 63 82/58 01/04 2002 97.3 64 91/52 01/04 1538 69 93/58 01/04 1213 71 110/65 MSE General appearance: good hygiene and grooming; Attitude: cooperative; Eye contact: appropriate; Movement: no psychomotor agitation or slowing; Speech: nl fluency, nl rate/rhythm, nl volume, nl prosody; Mood: "better" Affect: only slightly irritable, flat, appropriate, constricted, non-labile, congruent; Thought process: linear and goal-directed; Thought content: denied SI or HI, no paranoid ideation; Perception: denied hallucinations- auditory, visual, does not appear to be responding to internal stimuli; I/J: limited A/P: Pt with MDD and SI now with improved mood and diarrhea resolving. - Increases trazodone and added melatonin -Continue current medication regimen -Encourage integration into the milieu
[2018-01-05 12:03] VITALS: BP 94/60
[2018-01-05 15:36] VITALS: BP 143/95
[2018-01-05 20:00] VITALS: BP 97/50
[2018-01-06 07:44] VITALS: BP 98/62
[2018-01-06 12:15] VITALS: BP 100/57
--- NOTE | 2018-01-06 13:20 | CP SOUTH PROGRESS NOTE PSYCH ---
Psych (Inpt) Progress Note Progress Note Include the following elements, when applicable: Involvement in the active treatment of the patient with behavioral observations of the patient and the patient's response to the treatment. Review of the ongoing treatment process in the context of the treatment plan. Indication of how multi-disciplinary staff members are carrying out the treatment plan. Plans for future interventions and recommendations for revision of the treatment plan. Liaison with other physicians/providers. Progress Note: Pt feels that she is "a lot better" as diarrhea has completely resolved. She notes that she can now work on her mood which is "so/so" as nervous about next step. Planning on callign bf in rehab today. Very much looking forward to speaking with him. Denies SI or HI. Current Medications Sig/Bonilla Start time Last Medication Dose Route Stop Time Status Admin Acetaminophen 650 MG Q6P PRN 12/24 1630 12/31 PO 1704 Al Hydroxide/Mg 30 ML Q4-6 PRN PRN 12/24 1630 AC 01/02 Hydroxide PO 1453 Benztropine Mesylate 1 MG Q6P PRN 12/24 1630 AC PO Bismuth Subsalicylate 30 ML Q4P PRN 01/03 1545 AC PO Escitalopram Oxalate 20 MG 01/04 0800 AC 01/06 PO 0809 Gabapentin 400 MG TID@0800,1400,12/26 1400 AC 01/06 PO 0809 Gabapentin 300 MG Q6P PRN 12/24 1630 AC 12/27 PO 1754 Haloperidol 5 MG Q6P PRN 12/24 1630 AC PO Loperamide HCl 2 MG Q3P PRN 01/03 1145 AC 01/05 PO 2117 Magnesium Hydroxide 30 ML AT BEDTIME PRN 12/24 1630 AC PO Melatonin 5 MG AT BEDTIME 01/05 2200 AC 01/05 PO 2332 Methadone HCl 70 MG DAILY@12/28 0800 AC 01/06 PO 0814 Nicotine 2 MG Q2P PRN 12/24 1715 AC PO Ondansetron HCl 4 MG Q6PRN PRN 12/31 1130 AC 01/04 PO 0626 Trazodone HCl 150 MG AT BEDTIME 01/05 2200 AC 01/05 PO 2332 Laboratory Tests 01/05 600 Chemistry Sodium (137 - 145 mmol/L) 146 H Potassium (3.5 - 5.1 mmol/L) 4.5 Chloride (98 - 107 mmol/L) 103 Carbon Dioxide (22 - 30 mmol/L) 30 Anion Gap (5 - 16) 13 BUN (7 - 17 mg/dL) 15 Creatinine (0.5 - 1.0 mg/dL) 1.1 H Estimated GFR (>60 ml/min) 51 L BUN/Creatinine Ratio (7 - 25 %) 13.6 Vital Signs Date Time Temp Pulse Resp B/P B/P Pulse O2 O2 Flow FiO2 Mean Ox Delivery Rate 01/06 1215 71 100/57 01/06 0744 96.9 67 98/62 01/06 2000 97.4 71 97/50 01/05 1536 70 143/95 MSE General appearance: good hygiene and grooming; Attitude: cooperative; Eye contact: appropriate; Movement: no psychomotor agitation or slowing; Speech: nl fluency, nl rate/rhythm, nl volume, nl prosody; Mood: "a lot better" Affect: only slightly irritable, flat, appropriate, constricted, non-labile, congruent; Thought process: linear and goal-directed; Thought content: denied SI or HI, no paranoid ideation; Perception: denied hallucinations- auditory, visual, does not appear to be responding to internal stimuli; I/J: limited A/P: Pt with MDD and SI now with improved mood and diarrhea has completely resolved. - Cr 1.1, unchanged - Na trending upwards, to repeat - Continue current medication regimen
[2018-01-06 15:46] VITALS: BP 104/57
[2018-01-06 19:41] VITALS: BP 102/59
[2018-01-07 07:35] VITALS: BP 91/57
--- NOTE | 2018-01-07 10:18 | CP SOUTH PROGRESS NOTE PSYCH ---
Psych (Inpt) Progress Note Progress Note I reviewed the notes by Dr. Ballard from the weekend of January 05 and 2017. Pt.'s treatment and progress were discussed and the treatment team meeting this morning. The team included: RN, CASTING WHEEL OPERATOR HELPER, OTR/L, Art Therapist, and psychiatrist. Mental Status Examination: no longer having diarrhea appetite "is coming back" , no abdominal pain, feeling depressed with relative improvement compared to last week, looked depressed alert and oriented, calm, cooperative, speech was not slurred, not pressured. She denied thoughts of suicide, denied violent thoughts or thoughts of homicide, she denied hallucinations, she denied feeling paranoid, there were no delusions during the interview. Assessment: Steve is a 57-year-old White female who was admitted on 12/24/2017 for depression, anxiety, and thoughts of suicide (wanting to walk into traffic). She is just starting to feel better with less sedation, no diarrhea and no thoughts of suicide Most Likely Diagnoses: 1) Unspecified Depressive Disorder. 2) Opioid Use Disorder, on maintenance therapy. 3) Sedative, Hypnotic/Anxiolytic use disorder 4) Diabetes Mellitus (duration unknown, just discovered, patient's mother and 2 brothers have diabetes) 5) Hepatitis C 6) Low eGFR, elevated BUN and Creatinine Treatment Plan Update: D/C Imodium Continue Lexapro 20 mg daily Continue PRN Trazodone 100 mg at bedtime
[2018-01-07 12:23] VITALS: BP 95/61
[2018-01-07 15:56] VITALS: BP 104/56
--- NOTE | 2018-01-07 16:50 | RADIOLOGY REPORT ---
EXAMINATION: XR CHEST CLINICAL INFORMATION: Asymptomatic patient. Clearance for rehabilitation. Rule out infectious disease/TB. COMPARISON: None TECHNIQUE: 2 views of the chest were obtained on 3 images. FINDINGS: The cardiomediastinal silhouette is within normal limits in size. Low lung volumes are seen with bibasilar linear reticular opacities, consistent with subsegmental atelectasis. No focal consolidation, effusion or pneumothorax is seen. There is a mild convex right thoracic scoliosis and diffuse osteopenia. IMPRESSION: Low lung volumes with bibasilar subsegmental atelectasis. No focal pneumonia or evidence of granulomatous lung disease.
--- NOTE | 2018-01-07 17:15 | SOCIAL WORKER PROG NOTE PSYCH ---
Social Work Progress Note Progress Note This designer/writer spoke with [facility] regarding the referral. Per their request, psychiatrist notes from 01/04, 01/05 and 01/06 were faxed to them. This designer/writer followed up and was informed that patient would need to complete an in person assessment, which does not guarantee acceptance. This designer/writer spoke with Marck at the [facility] and was informed that they do not have any available beds. This designer/writer inquired about sending clinical in interest of review and for a bed when it becomes available. He stated that while they accept Methadone, "it's really complicated" due to needing to change Methadone treatment centers/providers and therefore encouraged this designer/writer not to make the referral. This designer/writer met with patient. Patient was informed of the call with [facility] and stated that she would be unable to find transportation to their facility. Patient was also informed of the phone call with the [facility]. Patient was agreeable to calling [facility] and [facility]. She was seen calling [facility] following the meeting. She stated that she was not willing to call [facility] due to a previously negative experience. This designer/writer completed a phone screening with Ana at [facility] in [place]. Ana stated that she would be in touch regarding the referral. At request, this designer/writer faxed History and Physical, Social, Diagnostic Assessment and Psychiatric Admission to Ana.
--- NOTE | 2018-01-07 18:13 | SOCIAL WORKER PROG NOTE PSYCH ---
Social Work Progress Note Progress Note Completed [facility] onliune review. Check [facility] for next review date.
[2018-01-07 19:44] VITALS: BP 99/66
[2018-01-08 07:46] VITALS: BP 113/73
--- NOTE | 2018-01-08 08:25 | CP SOUTH PROGRESS NOTE PSYCH ---
Psych (Inpt) Progress Note Progress Note Treatment team discussed the Pt.'s treatment, progress, and aftercare plans. The team included: RN, CASING CREW PUSHER, OTR/L, Group and Activity therpaist, and psychiatrist. Vital Signs Date Time Temp Pulse B/P 01/08 0746 97.7 88 113/73 04 1944 97.4 71 99/66 Mental Status Examination: The patient reported feeling much better physically (no diarrhea, no nausea, no abdominal pain, and better appetite). Although she's still feeling depressed, she reported relative improvement compared to last week, affect looked depressed. She was alert and oriented, calm, cooperative, speech was not slurred , not pressured. She denied thoughts of suicide, denied violent thoughts or thoughts of homicide, she denied hallucinations, she denied feeling paranoid, there were no delusions during the interview. Assessment: Steve is a 57-year-old White female who was admitted on 12/24/2017 for depression, anxiety, and thoughts of suicide (wanting to walk into traffic). Since then, Steve had a few days of not feeling physically well (diarrhea, nausea, generalized malaise, loss of appetite). Today, she is starting to feel better with less sedation, no diarrhea and no thoughts of suicide Diagnoses (Updated today, January 08, 2018): 1) Unspecified Depressive Disorder. 2) Opioid Use Disorder, on maintenance therapy (Methadone). 3) Diabetes Mellitus (duration unknown, just discovered, patient's mother and 2 brothers have diabetes) 4) Hepatitis C 5) Low eGFR, elevated BUN and Creatinine Treatment Plan Update: Continue Lexapro 20 mg daily Continue PRN Trazodone 100 mg at bedtime Continue Melatonin 5 mg at bedtime
[2018-01-08 12:13] VITALS: BP 100/52
--- NOTE | 2018-01-08 14:42 | DISCHARGE SUMMARY REPORT-PSYCH ---
Visit Information Visit Dates/Diagnosis' Admission Date: 12/24/17 Discharge Date: 01/10/18 Reason for Admission: thoughts of suicide Psy Discharge Primary Diag: Unspecified Depressive Disorder Psy Discharge Secondary Diag: Opioid Dependence Hospital Course Significant Lab Findings: Lab BUN 15 mg/dL 01/05/18 06 BUN/Creatinine Ratio 13.6 % 01/05/18599 Creatinine 1.1 mg/dL H 01/05/18 06 Estimated GFR 51 ml/min L 01/05/18 06 Course Complications: The patient had a few days of diarrhea and nausea or he was on the inpatient psychiatric unit hospitalist had follow-up visits for the following reasons. The patient also found out that her blood glucose readings and hemoglobin A1c readings were elevated suggesting that she may have diabetes and she does have a strong family history of diabetes (her mother and 2 brothers have diabetes, she reported that he has 2 brothers developed diabetes around her age currently Consultations: The patient was seen by the lightning rod installer while she was on the inpatient psychiatric unit This is the December 25, 2017 assessment assessment: This young female is admitted for increasing depression and suicidal ideation. This is the first admission in [facility] and she admits that she was not taking her medication that was given to her by outpatient psychiatrist where she was following up off and on. She is fairly stable on physical exam although she has a history of hepatitis C and treatment with the harmonic in the past. Her admission lab work is significant for increased glucose and her nonfasting glucose was 255 at the time of admission. The rest of her labs including liver functions and electrolytes are normal. Her urine is negative for glucose the time of admission. We will get a fasting sugar and hemoglobin A1c on her to see if they're significantly elevated and if she requires any treatment. Otherwise he does not need any other treatment at this time. On January 01, 2018 there was a follow-up by Dr. Chang. His impression/Plan was: #Abdominal Pain- onset of pain and nausea correlates with start of Metformin and suspect it is a side effect for this patient. Plan: Will discontinue Metformin and follow symptoms. If symptoms not resolving will consider further evaluation- bloodwork/US , etc. #Hyperglycemia- patient was begun on Metformin due to high glucose. On consistent carbohydrate diet. Plan: As above, will discontinue Metformin at present. Will check glucose level on CC3 diet in morning and decide if should start another oral agent. Allergies: Coded Allergies: Penicillins (SWELLING 12/23/17) Hospital Course/TX Response: The patient was admitted on December 24, 2017 I saw her for the initial psychiatric assessment and my initial impression and Plan were: 57-year-old white female who was admitted for depression and anxiety and thoughts of suicide with thoughts of wanting "to walk into traffic". 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 The patient was taken off Zyprexa upon my initial assessment of her because of the suspicion of prediabetes and also because there was no solid evidence that she had any bipolar element or psychosis. The patient was also very sedated in the beginning of her stay in the hospital. Her methadone was only reduced once from 80 mg to 70 mg because of the very noticeable sedation. The patient's stay was complicated by her. A few days of having abdominal discomfort nausea and diarrhea. Ultimately this was resolved no discernible because was identified. Initially it was thought as being a side effect of metformin however the symptoms continued after metformin was discontinued. The patient may have had an episode of gastroenteritis/Food poisoning, however, as mentioned earlier with no discernible because could be pinpointed with accuracy. However, the patient's symptoms resolved without any incidents. Also during her stay, the patient's kidney function continued to be mildly impaired even after hydration. As this was the patient's first admission to [facility], it was not clear how long the patient had diabetes or the mild impairment in kidney function. Her psychiatric condition improved moderately while she was on the inpatient psychiatric unit. The last few days of her stay on the unit she had no hopelessness and no thoughts of suicide. The reason for her extend his stay was as mentioned earlier primarily because of homelessness and the session with the social workers concerted efforts to find safe disposition for her. Finally that came through on January 10, 2018. With solid discharge plan of going to continue of care in [facility] for the next 2-3 weeks until a bed opens up at [facility] in [place]. The patient was agreeable to this plan. The patient's condition upon discharge (January 10, 2018) Vital Signs: Temp: 97.4 degree F; Pulse 80/min., B/P: 111/65 mmHg Mental Status Examination: The patient did not have physical complaints today. She reported that her mood is "good". Her affect seemed bright/animated. She was alert and oriented to time, place, and person. She spoke at a normal pace. Sppech was neither slurred nor pressured. She denied thoughts of suicide, and denied violent thoughts or thoughts of homicide. She denied hallucinations, she denied feeling paranoid, and there were no delusions. Assessment: Steve is a 57-year-old White female who was admitted on 12/24/2017 for depression, anxiety, and thoughts of suicide (wanting to walk into traffic). Steve has shown moderate improvement in her mood and has been free of thoughts of suicide for several days. Discharge Diagnoses (last updated on January 08, 2018): 1) Unspecified Depressive Disorder. 2) Opioid Use Disorder, on maintenance therapy (Methadone). 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 Metabolic Screening ([X]) Not Applicable, patient not on a neuroleptic. Discharge Instructions General Discharge Information Multiple Neuroleptics: ([X]) Not Applicable Discharge Diet Diabetic Discharge Activity Normal DC [facility]position: [facility] Referrals Ordered Referrals Provider Referral 01/10/18 For Providers: [facility]] For Groups: [facility] [address] [place] [address] Patient will discharge to [facility] on 01/10/18. Provider Referral 01/11/18 For Groups: [[facility]] [address] [phone] Patient will present to [facility] on Sunday01/11/18 to re-engage in Methadone treatment services. She will speak with a clinician upon her arrival about beginning IOP. This location opens at 5am and patient is asked to present anytime from 5am and before 3pm. Patient will contact the following programs regarding inpatient treatment: -[facility]: [phone] -[facility]: [phone] -[facility]: [phone] Provider Referral 01/16/18 For Providers: [[facility]] For Groups: [[facility]] [facility] [address] [phone] Group meets every other Sunday at 4pm. Next group: 01/16/18, at 4pm Provider Referral 01/14/18 For Groups: [[facility]] [address] [phone] Patient may utilize walk in hours on 01/14/18, or Sunday01/15/18 for to meet with a prescriber. Patient is asked to arrive at 7am. Prescriptions Stop taking the following medications: Escitalopram Oxalate (Lexapro) 10 MG TABLET ORAL DAILY Gabapentin (Gabapentin) 300 MG CAPSULE ORAL THREE TIMES DAILY Hydroxyzine Hydrochloride (Atarax) 50 MG TAB ORAL THREE TIMES DAILY as needed for UNKNOWN Methadone Hydrochloride (Methadone HCl) 10 MG TABLET ORAL DAILY Olanzapine (Olanzapine) 15 MG TABLET ORAL Every night Trazodone HCl (Trazodone HCl) (Unknown Strength) TABLET Citalopram Hydrobromide (Citalopram HBr) 40 MG TABLET Alprazolam (Alprazolam) 0.5 MG TABLET ORAL THREE TIMES DAILY Start taking the following new medications: Methadone Hydrochloride (Methadone HCl) 10 MG TABLET 70 Milligram ORAL DAILY Qty = 1 No Refills Comments: Last Taken:01/10/18 Time:0754 Escitalopram Oxalate (Escitalopram Oxalate) 20 MG TABLET 1 Tablet ORAL DAILY Qty = 30 No Refills Comments: Last Taken:01/10/18 Time:0753 Trazodone HCl (Trazodone HCl) 150 MG TABLET 1 Tablet ORAL Every night Qty = 30 No Refills Comments: Last Taken:01/09/18 Time:2125 Gabapentin (Gabapentin) 600 MG TABLET 1 Tablet ORAL THREE TIMES DAILY Qty = 90 No Refills Comments: Last Taken:400MG ADMINISTERED 01/10/18 Time:0754 Studies Pending at Discharge None Copies To: [facility]
[2018-01-08 15:42] VITALS: BP 96/53
--- NOTE | 2018-01-08 16:36 | SOCIAL WORKER PROG NOTE PSYCH ---
Social Work Progress Note Progress Note This senior mortgage underwriter met with patient. Patient denied SI/HI/AH/VH. Referrals to date were reviewed with the patient: - [facility]: this senior mortgage underwriter spoke with Jinny at [facility] who stated that the fax with the psychiatrist progress notes were recieved and are being reviewed by the clinical director. She stated that the patient would need to come for a [id number] assessment, but this does not guarantee the bed. She stated that she was waiting to hear back from the clinical director on his thoughts regarding likelihood of acceptance for the program and will contact this senior mortgage underwriter with this information. Also, Methadone treatment would need to be transferred. -[facility]: patient stated that she called [facility] last night and requested that clinical information is faxed to their program. She stated that there is a 2-3 week wait. This senior mortgage underwriter faxed the history and physical, social, diagnostic assessment, psychiatric admission and medication list to [facility] at [phone] on 01/08/18 at 2:00pm. This senior mortgage underwriter left vm for [facility] admissions requesting to confirm the 2-3 week wait time frame and also informing that clinical had been faxed to them. -[facility]: this senior mortgage underwriter left vm for [facility] regarding this referral and provided call back number. -[facility]: this senior mortgage underwriter left vm for Winnie (at [facility], per request of patient) inquiring about patient's insurance and their inpatient program. This senior mortgage underwriter reached Lizett at the inpatient program who stated that they do not accept [facility] (only [facility]). -[facility] [place]: this senior mortgage underwriter spoke with Ana who was informed of the referral to [facility] and requested to be informed once the 2-3 week time frame has been confirmed. She stated that she may have a bed tomorrow. -[facility]: this senior mortgage underwriter spoke with admissions who stated that they only accept [facility] for detox for individuals under 21 years of age. -[facility] this senior mortgage underwriter attempted to reach [facility] regarding their inpatient program ([phone]), but was unsuccessful in reaching anyone.
[2018-01-08 19:48] VITALS: BP 105/69
[2018-01-09 07:38] VITALS: BP 115/59
--- NOTE | 2018-01-09 10:22 | SOCIAL WORKER PROG NOTE PSYCH ---
See Addendum Social Work Progress Note Progress Note TC - Phoned [facility] - phoned and left VM with admissions to call Janelle Whaley LCSW back SAMANTHA - to see if waitlist is about 2-3 weeks. Informed them that need this information SAMANTHA to get patient a bed at [facility].
--- NOTE | 2018-01-09 11:27 | SOCIAL WORKER PROG NOTE PSYCH ---
See Addendum Social Work Progress Note Progress Note TC - 11;26am - phoned again [facility] spoke with LIZABETH Mckeon in admissions. She did confirm that as of now the waitlist is 2-3 weeks. She suggested patient continue to call and give the number she can be reached after discharge from [facility].
--- NOTE | 2018-01-09 11:46 | CP SOUTH PROGRESS NOTE PSYCH ---
Psych (Inpt) Progress Note Progress Note The treatment team discussed the patients treatment, progress, and aftercare plans. The treatment team included: RNs, PHOTOENGRAVING APPRENTICE, OTR/L, and psychiatrist. Vital Signs: Temp: 97.0; Pulse 82/min., B/P: 115/59 mmHg Mental Status Examination: The patient had no physical complaints today (no diarrhea, no nausea, no abdominal pain, etc.). She reported that her mood is slowly but surely getting better each day. She seemed a little more animated in her affect and body language. She was alert and oriented to time, place, and person. She spoke at a normal pace and was not slurred, nor pressured. She denied thoughts of suicide, denied violent thoughts or thoughts of homicide, she denied hallucinations, she denied feeling paranoid, and there were no delusions. Assessment: Steve is a 57-year-old White female who was admitted on 12/24/2017 for depression, anxiety, and thoughts of suicide (wanting to walk into traffic). Steve is showing slow but consistent improvement in her mood. Diagnoses (last updated on January 08, 2018): 1) Unspecified Depressive Disorder. 2) Opioid Use Disorder, on maintenance therapy (Methadone). 3) Diabetes Mellitus (duration unknown, just discovered, patient's mother and 2 brothers have diabetes) 4) Hepatitis C 5) Mild impairment in kidney function Treatment Plan Update: Continue Lexapro 20 mg daily Continue PRN Trazodone 100 mg at bedtime Continue Melatonin 5 mg at bedtime
[2018-01-09 12:12] VITALS: BP 90/60
[2018-01-09 16:12] VITALS: BP 112/72
--- NOTE | 2018-01-09 16:18 | SOCIAL WORKER PROG NOTE PSYCH ---
Social Work Progress Note Progress Note [facility] concurrent review entered: Member Name Member ID Member Subscriber Name Subscriber ID GEE [id number] GEE LIM [id number] Pended Authorization # Client Authorization # Type of Request [id number] CONCURRENT Date of Admission/ Start of Services Requested From Submission Date 12/24/2017 01/09/2018 01/09/2018 Level of Service Type of Service Level of Care Type of Care INPATIENT/OC Mental Health Inpatient Inpatient Hospital - Inpatient Hospital Reason Code P77
--- NOTE | 2018-01-09 17:36 | SOCIAL WORKER PROG NOTE PSYCH ---
Social Work Progress Note Progress Note This investigative writer spoke with Roxanne at [facility] in [place]. She was informed that clinical was faxed to [facility] and learned that they have a 2-3 week wait. She was also informed that this investigative writer left a vm for [facility] admissions requesting a call back to discuss a screening and confirm receipt of the fax. This investigative writer did not receive a call back. Roxanne stated that she would like to speak with the patient about her discharge plans, upon which time a bed may be offered. Roxanne was also informed that this investigative writer spoke with Day at [facility] who stated that the patient could either transfer the Methadone treatment to [facility] or continue with [facility] for Methadone and IOP while waiting for an inpatient bed. Roxanne was also informed of the referrals to inpatient that have been made. This investigative writer met with patient. Patient was agreeable to speaking with Roxanne from [facility] and [facility], who was contacted by phone, to discuss discharge plans. This investigative writer met with patient following the phone call. Patient appears motivated to continue with treatment upon discharge. A referral was made to [facility] and patient will contact them as well. Patient refused a referral to [facility] due to the location. [facility] due to the location.
[2018-01-09 20:03] VITALS: BP 119/66
[2018-01-10 07:44] VITALS: BP 111/65
--- NOTE | 2018-01-10 07:53 | CP SOUTH PROGRESS NOTE PSYCH ---
Psych (Inpt) Progress Note Progress Note Vital Signs: Temp: 97.4 degree F; Pulse 80/min., B/P: 111/65 mmHg Mental Status Examination: The patient did not have physical complaints today. She reported that her mood is "good". Her affect seemed bright/animated. She was alert and oriented to time, place, and person. She spoke at a normal pace. Sppech was neither slurred nor pressured. She denied thoughts of suicide, and denied violent thoughts or thoughts of homicide. She denied hallucinations, she denied feeling paranoid, and there were no delusions. Assessment: Steev is a 57-year-old White female who was admitted on 12/24/2017 for depression, anxiety, and thoughts of suicide (wanting to walk into traffic). Steve has shown moderate improvement in her mood and has been free of thoughts of suicide for several days. Discharge Diagnoses (last updated on January 08, 2018): 1) Unspecified Depressive Disorder. 2) Opioid Use Disorder, on maintenance therapy (Methadone). 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 Steve is showing slow but consistent improvement in her mood. Diagnoses (last updated on January 08, 2018): 1) Unspecified Depressive Disorder. 2) Opioid Use Disorder, on maintenance therapy (Methadone). 3) Diabetes Mellitus (duration unknown, just discovered, patient's mother and 2 brothers have diabetes) 4) Hepatitis C 5) Mild impairment in kidney function Treatment Plan Update: Continue Lexapro 20 mg daily Continue PRN Trazodone 100 mg at bedtime Continue Melatonin 5 mg at bedtime
[2018-01-10] MEDS ORDERED: METHADONE HCL10 M1 PO (08:15)
[2018-01-10] MEDS ORDERED: TRAZODONE HCL150 M1 PO (08:18)
[2018-01-10] MEDS ORDERED: ESCITALOPRAM OX20 MG PO (08:18)
[2018-01-10] MEDS ORDERED: GABAPENTIN600 M1 PO (08:19)
--- NOTE | 2018-01-10 08:20 | Patient Discharge Instructions ---
Psych Discharge Inst General Discharge Information Reason for Admission: thoughts of suicide Psy Discharge Primary Diag+ Unspecified Depressive DO Psy Discharge Secondary Diag+ Opioid Dependence Summary Tests/Major Procedures Lab Anion Gap 12 01/07/18 0638 BUN 15 mg/dL 01/05/18 0600 BUN/Creatinine Ratio 13.6 % 01/05/18 0600 Carbon Dioxide 31 mmol/L H 01/07/18 0638 Chloride 101 mmol/L 01/07/18 0638 Creatinine 1.1 mg/dL H 01/05/18 0600 Estimated GFR 51 ml/min L 01/05/18 0600 Glucose 114 mg/dL H 01/02/18 0625 Potassium 4.8 mmol/L 01/07/18 0638 Sodium 144 mmol/L 01/07/18 0638 Studies Pending at DC: None Patient Instructions Contact Information Your Psychiatrist on [facility] was Pernell Lomas MD * If you are experiencing an emergency related to this hospitalization, please call [phone] to contact the treating psychiatrist or the psychiatrist-on- call. * To Request a copy of your medical records, please contact the Medical Records Department at [phone]. * To request results of studies pending at the time of discharge, please call [phone]. * Continue your Medications until directed to stop by your Healthcare provider. General Medication Information Please continue to take your new medications and your continued home medications , unless otherwise indicated on your discharge medication list, or unless directed by your MD or LOCOMOTIVE FIRER to stop them. Special Instructions Diet Diabetic Activity Normal Other Inst/Recommendations Follow up with PCP regarding kidney function monitoring - Tobacco Use Treatment Offered Post DC Medications Offered: Refused Tob Medication Tx Post DC Tobacco Treatment Plan: Refused Tobacco Tx Pgm - EtOH/Drug Use D/O Treatment Offered Post DC Medications Offered: Script Given-See Med List Post DC EtOH/SubAbuse TX Plan: Other SubAbuse/Dual Pgm Metabolic Screening ([X]) Not Applicable, patient not on a neuroleptic. Advance Directives Does the Patient have Medical Advance Directives No/Per pt req info given Does Pt have Psychiatric Advance Directives? No/Per pt req info provid Does Patient have a Designated Surrogate Decision Maker: No Information About Psychiatric Advance Directives Provided? Refused Discharge Plan Post Hospital [facility]
[2018-01-10 12:27] VITALS: BP 98/65
--- NOTE | 2018-01-10 17:52 | SOCIAL WORKER PROG NOTE PSYCH ---
Social Work Progress Note Progress Note This policy writer spoke with Roxanne at [facility] to confirm that patient will be admitted to their program today. As this policy writer had agreed to confirm, she was informed that the patient denied any current legal matters. Patient will be scheduled a [place] ride from to [facility]. This policy writer spoke with Day at the [facility]. She was informed that the patient would like to continue with Methadone treatment at the [facility] and pursue IOP with [facility] until an inpatient bed is available. Day stated that she would place an "alert" in the system so the patient speaks with a counselor tomorrow about attending IOP. Day explained that the IOP is any 3 days per week, and 3 groups on the days she attends. Patient is to utilize the [facility] on [address] [place] [address] in [place] and is asked to present tomorrow as early as 5am until 3pm. Regarding medication management services, patient may utilize walk in hours on Tuesdays at 7am. Day stated that the patient could speak with a clinician should she chose to transfer her Methadone treatment to [place] as she will be staying at the [facility] and [facility]. Per Roxanne at [facility], patient will be provided assistance to utilize train or bus services to the [facility] from [facility] and [facility]. This policy writer spoke with Linda at [facility]. She confirmed receipt of the clinical records that had been faxed and stated that the doctor would review them. She requested recent psychiatrist progress notes, (01/08, 01/09 and 01/10/18 ) which were faxed to her at [phone] at 11:14am today. This policy writer spoke with Ivan at [facility], who confirmed receipt of the fax clinical. She stated that the patient may call tomorrow (as the family literacy coordinator is out of the office today) to speak with her and inquire about bed availability and a phone screening. This policy writer spoke with admissions at [place] and was informed that the patient may call them to schedule an assessment if she is able to secure transportation to their facility. Scheduling the assessment does not guarantee acceptance and patient may be turned away. This policy writer met with patient. Discharge plans were reviewed as described above. She was agreeable to continuing services with [facility] (Methadone and IOP ) and will present tomorrow to re-engage as well as utilize the walk in medications hours on 01/15/18, at 7am. She stated that she will continue to call [facility] on a daily basis and also call [facility] tomorrow. Patient stated that, upon arriving to [facility], she will explore any possible options regarding transportation to (and possibly from) [place] and will contact them with a decision. Patient described her mood as "good." She denied SI/HI/AH/VH. She stated that she was comfortable with the discharge plan and to go to [facility] this afternoon. Patient was agreeable to calling 211 for a CAN assessment if a [facility] bed or other rehab bed is not available, as previously discussed with Roxanne. She identified a safety plan in which she would immediately inform treatment staff and use the crisis numbers or warm lines, which will be provided upon discharge. 1:30pm This policy writer spoke with Waldemar at [facility] (as Roxanne was unavailable) to inform that a [place] ride has been scheduled and anticipated mixing picker tender is within an hour. He was also informed of the above conversations with [facility], [facility] and [facility] and would relay the information to Roxanne. Discharge instructions pages (2 pages) on home medication list and page titled "stop taking these discontiued home medications" were faxed to [facility] (at [phone]) and [facility] (at [phone]) at the fax numbers listed below. Fax confirmation pages filed in the patient's chart. Faxed Referral(s) 1 Referred To: [facility] Transition of Care Documents sent: Health Summary, W10 Faxed to: [facility] Fax #: [phone] Faxed by: Abigail FRANCOW Date faxed: 01/10/18 Time Faxed: [phone] Faxed Referral(s) 2 Referred To: [facility] Transition of Care Documents sent: Health Summary Faxed to: [facility] Fax #: [phone] Faxed by: Abigail FRANCOW Date faxed: 01/10/18 Time Faxed: [phone]
== END 2018-01-10 14:15 | DRG 754 ==
LOC: ERH 17:09 → ERHI 12-24 16:11 → CP SOUTH 12-24 16:11 → ENRESERV 12-24 23:59 → CP SOUTH 12-25 10:17
PROVIDERS: Emergency Medicine
DX: F32.9 Major depressive disorder, single episode, unspecified (principal)
CPT/HCPCS: 36415; 71046; 80307; 81001; 81025; 82436; 87045; 93005; 93010; G0463; G0480; J3101; Q2036

== ENCOUNTER 2018-01-17 17:01 | Inpatient (IN) | payer OTHER, MEDICARE ==
[~2018-01-17] VITALS: Ht 160 cm; Wt 70.8 kg
[~2018-01-17 17:01] MED LIST: ALPRAZOLAM0.5 M4 PO; CITALOPRAM HBR40 MG; ESCITALOPRAM OX20 MG PO; GABAPENTIN300 M2 PO; GABAPENTIN600 M1 PO; HYDROXYZINE HCL50 M1 PO; LEXAPRO10 M1 PO; METHADONE HCL10 M1 PO; OLANZAPINE15 M1 PO; TRAZODONE HCL100 M1; TRAZODONE HCL150 M1 PO
[2018-01-17 17:55] LABS: ABSOLUTE BASOPHIL COUNT 0.1 /CUMM (0.0-0.2); ABSOLUTE EOSINOPHIL COUNT 0.5 /CUMM (0.0-0.7); ABSOLUTE GRANULOCYTE CT 4.6 /CUMM (1.4-6.5); ABSOLUTE LYMPH COUNT 3.5 /CUMM (1.2-3.4); ABSOLUTE MONOCYTE COUNT 0.6 /CUMM (0.10-0.60); BASOPHIL % 0.8 % (0.0-2.0); EOSINOPHIL % 5.3 % (0-5); GRANULOCYTE % 49.7 % (42.2-75.2); HEMATOCRIT 37.3 % (37-47); MEAN CORPUSCULAR HGB 29.6 PG (27.0-31.0); MEAN CORPUSCULAR HGB CONC 33.8 G/DL (33.0-37.0); MEAN CORPUSCULAR VOLUME 87.8 FL (81.0-99.0); MEAN PLATELET VOLUME 7.9 FL (7.4-10.4); PLATELET COUNT 216 /CUMM (130-400); RED BLOOD CELL CT 4.25 /CUMM (4.20-5.40); WHITE BLOOD CELL COUNT 9.3 /CUMM (4.8-10.8)
--- NOTE | 2018-01-17 19:11 | ED PSYCHIATRIC COMPLAINT ---
History of Present Illness General Chief Complaint: Psychiatric Related Complaint Stated Complaint: BIBA SI Source: patient, old records, EMS Exam Limitations: no limitations Vital Signs & Intake/Output Vital Signs & Intake/Output Vital Signs Date Time Temp Pulse Resp B/P B/P Pulse O2 O2 Flow FiO2 Mean Ox Delivery Rate 01/18 1145 71 18 123/76 95 Room Air 01/18 0911 64 16 108/62 97 Room Air 01/18 0600 96.9 68 18 100/70 96 Room Air 01/18 0042 98.0 70 18 105/60 95 Room Air 01/17 2139 98.0 70 18 103/56 95 Room Air 01/17 1713 98.8 80 18 99/66 98 Room Air ED Intake and Output 01/18 0000 01/17 1200 Intake Total 0 Output Total Balance 0 Intake, Oral 0 Allergies Coded Allergies: Penicillins (SWELLING 12/23/17) Reconcile Medications Escitalopram Oxalate 20 MG TABLET 1 TAB PO DAILY depression/anxiety Gabapentin 600 MG TABLET 1 TAB PO TID anxiety Methadone Hydrochloride (Methadone HCl) 10 MG TABLET 70 MG PO DAILY@0800 maintenance Trazodone HCl 150 MG TABLET 1 TAB PO QPM sleep Triage Note: PT TO ED BY AMBULANCE VOLUNTARILY FROM [facility] IN [place]. STATES, "I DIDNT FEEL SAFE THERE." +SI. Triage Nurses Notes Reviewed? yes Onset: Gradual Duration: week(s):, changing over time, continues in ED, getting worse Timing: recent history Severity: moderate, severe Severity Numbers: 10 Associated Symptoms: anxiety, impaired concentration, suicidal ideation LMP (ages 10-50): unknown : No Patient currently breastfeeds: No HPI: 57-year-old female past medical history of alcohol abuse, benzodiazepine abuse, anxiety, depression BIBA from [facility] for evaluation of suicidal ideation. Patient states that she has been feeling depressed for several months gradually getting worse. She states that she was seen here last month and was detoxed from alcohol and benzodiazepines. She states she relapsed a couple days ago on Klonopin. She denies any alcohol use. She states that she took 6 mg of Klonopin today. She is also on methadone. She denies any hallucinations. She does report thoughts of suicide with the plan to overdose on benzos. She has chest pain shortness of breath. She's not taking any other medications currently. (Inder Shah) Past History Travel History Traveled to [place] past 21 day No Medical History Any Pertinent Medical History? see below for history Cardiovascular: HYPOTENSION Respiratory: NONE Gastrointestinal: constipation Renal: NONE Musculoskeletal: NONE Psychiatric: alcohol dependence, ADJUSTMENT DISORDER History of MRSA: No History of VRE: No History of CDIFF: No Surgical History Surgical History: non-contributory Psychosocial History Who do you live with Significant Other What is your primary language Portuguese Tobacco Use: Refused to answer Family History Hx Contributory? No (Inder Shah) Review of Systems Review of Systems Constitutional: Reports: no symptoms. EENTM: Reports: no symptoms. Respiratory: Reports: no symptoms. Cardiovascular: Reports: no symptoms. GI: Reports: no symptoms. Genitourinary: Reports: no symptoms. Musculoskeletal: Reports: no symptoms. Skin: Reports: no symptoms. Neurological/Psychological: Reports: see HPI, anxiety, depressed. Hematologic/Endocrine: Reports: no symptoms. Immunologic/Allergic: Reports: no symptoms. All Other Systems: Reviewed and Negative (Inder Shah) Physical Exam Physical Exam General Appearance: well developed/nourished, no apparent distress, alert, awake Head: atraumatic, normal appearance Eyes: Bilateral: normal appearance, PERRL, EOMI. Ears, Nose, Throat: normal pharynx, normal ENT inspection, hearing grossly normal Neck: normal inspection, supple, full range of motion Respiratory: normal breath sounds, chest non-tender, no respiratory distress, lungs clear Cardiovascular: regular rate/rhythm, normal peripheral pulses Gastrointestinal: normal bowel sounds, soft, non-tender, no organomegaly Extremities: normal range of motion Neurological/Psychiatric: no motor/sensory deficits, awake, agitated Appearance/Memory/Insight: disheveled, impaired insight Behavoir/Eye Contact/Speech: avoids eye contact, cooperative, normal speech Thoughts/Hallucinations: normal thought pattern, no apparent hallucination Skin: intact, normal color, warm/dry SAD PERSONS SAD PERSONS Response Value Age <19 or >45 years? yes 1 Depression/Hopelessness? yes 2 Previous Attempts/Psych Care yes 1 Excessive Ethanol/Drug Use? yes 1 Rational Thinking Loss? yes 2 Organized/Serious Attempt yes 2 Total 9 SAD PERSONS Done? yes (Inder Shah) Progress Differential Diagnosis: dementia, drug intoxication, drug overdose, drug withdrawal, electrolyte abnormality Plan of Care: Orders Procedure Date/time Status Consistent Carbohydrate 3 01/18 D Active Regular Diet 01/18 B Complete Admit to inpatient psych 01/18 1314 Active URINE 01/18 1255 Active Patient Data - inpatient psych 01/18 1249 Active Admit to inpatient psych 01/18 1249 Active Vital Signs 01/18 UNK Active Nursing Misc 01/18 UNK Active Alternative Nursing Therapy 01/18 UNK Active Activity/Ambulation 01/18 UNK Active Continuous Observation Monitor 01/17 1815 Active ED CRISIS PSYCH CONSULT 01/17 1815 Active Intake & Output 01/17 1727 Active URINE DRUG SCREEN FOR ER ONLY 01/17 1706 Complete URINALYSIS 01/17 170 Complete ETHANOL 01/17 170 Complete COMPREHENSIVE METABOLIC PANEL 01/17 170 Complete CBC WITHOUT DIFFERENTIAL 01/17 1706 Complete Current Medications Sig/Bonilla Start time Last Medication Dose Stop Time Status Admin Trazodone HCl 150 MG AT BEDTIME 01/18 2100 UNVr (Desyrel) Gabapentin 600 MG TID 01/18 1400 UNVr (Neurontin) Acetaminophen 650 MG Q6P PRN 01/18 1300 UNVr (Tylenol) Al Hydroxide/Mg 30 ML Q4-6 PRN PRN 01/18 1300 UNVr Hydroxide (Maalox Plus) Benztropine Mesylate 1 MG Q6P PRN 01/18 1300 UNVr (Cogentin 1 MG Tablet) Benztropine Mesylate 1 MG Q6P PRN 01/18 1300 UNVr (Cogentin) Gabapentin 300 MG Q6P PRN 01/18 1300 UNVr (Neurontin) Haloperidol 5 MG Q6P PRN 01/18 1300 UNVr (Haldol) Haloperidol 5 MG Q6P PRN 01/18 1300 UNVr (Haldol) Lorazepam 2 MG Q6P PRN 01/18 1300 UNVr (Ativan) Magnesium Hydroxide 30 ML AT BEDTIME PRN 01/18 1300 UNVr (Milk Of Magnesia) Nicotine 2 MG Q2P PRN 01/18 1300 UNVr (Nicotine) Escitalopram Oxalate 20 MG DAILY 01/18 1129 UNVr 01/18 (Lexapro) 1224 Methadone HCl 70 MG DAILY@0800 01/18 0800 UNVr 01/18 (Dolophine) 0559 Laboratory Tests 01/17/18 1806: Urine Opiates Screen < 100, Methadone Screen > 735 H, Barbiturate Screen < 60, Ur Phencyclidine Scrn < 6.00, Amphetamines Screen < 100, U Benzodiazepines Scrn 329 H, Urine Cocaine Screen < 50, Urine Cannabis Screen < 5.00, Urine Color YEL , Urine Clarity CLEAR, Urine pH 6.5, Ur Specific [place] 1.010, Urine Protein NEG, Urine Ketones NEG, Urine Nitrite NEG, Urine Bilirubin NEG, Urine Urobilinogen 0.2, Ur Leukocyte Esterase NEG, Ur Microscopic EXAM NOT REQUIRED, Urine Hemoglobin NEG, Urine Glucose NEG 01/17/18 1729: Anion Gap 11, Estimated GFR 46 L, BUN/Creatinine Ratio 10.8, Glucose 100 H, Calcium 9.2, Total Bilirubin 0.4, AST 27, ALT 29, Alkaline Phosphatase 59, Total Protein 7.6, Albumin 4.2, Globulin 3.4, Albumin/Globulin Ratio 1.2, CBC w Diff NO MAN DIFF REQ, RBC 4.25, MCV 87.8, MCH 29.6, MCHC 33.8, RDW 13.0, MPV 7.9, Gran % 49.7, Lymphocytes % 38.1, Monocytes % 6.1, Eosinophils % 5.3 H, Basophils % 0.8, Absolute Granulocytes 4.6, Absolute Lymphocytes 3.5 H, Absolute Monocytes 0.6, Absolute Eosinophils 0.5, Absolute Basophils 0.1, Serum Alcohol < 10.0 Patient seen and evaluated. She is currently having thoughts of suicide feeling depressed. She has a plan to overdose on Klonopin. We'll check basic labs including drug screen. Patient will be seen by crisis. Patient is also on methadone she had her dose today. Blood work does not show any acute findings. She is testing positive for benzodiazepines and methadone. Patient will be signed out to Dr. Florence pending crisis eval. Hand-Off Endorsed To: Kenney Florence MD Endorsed Time: 010 Pending: consult (CRISIS) (Inder Shah) Hand-Off Endorsed To: Shaggy Jolley MD Endorsed Time: 07 Pending: consult (Kenney Florence MD) Departure Departure Disposition: STILL A PATIENT Condition: Stable Clinical Impression Primary Impression: Suicidal ideation Referrals: Patient Has No Primary Care Dr (PCP/Family) Departure Forms: Customer Survey General Discharge Information (Inder Shah) PA/MILLING MACHINE TENDER Co-Sign Statement Statement: ED Attending supervision documentation- [] I saw and evaluated the patient. I have also reviewed all the pertinent lab results and diagnostic results. I agree with the findings and the plan of care as documented in the PA's/MILLING MACHINE TENDER's documentation. [x] I have reviewed the ED Record and agree with the PA's/MILLING MACHINE TENDER's documentation. [] Additions or exceptions (if any) to the PAs/MILLING MACHINE TENDER's note and plan are summarized below: [] (Ludivina KEATING,Kenney Felix) Psych Admission Note Psychiatric Admission: I have seen and evaluated GEE SPEAR. I have also reviewed all the pertinent lab results and diagnostic results. GEE SPEAR will be admitted to our inpatient Psychiatric unit for treatment and care. PA/MILLING MACHINE TENDER Co-Sign Statement Statement: ED Attending supervision documentation- [X] I saw and evaluated the patient. I have also reviewed all the pertinent lab results and diagnostic results. I agree with the findings and the plan of care as documented in the PA's/MILLING MACHINE TENDER's documentation. [X] I have reviewed the ED Record and agree with the PA's/MILLING MACHINE TENDER's documentation. [] Additions or exceptions (if any) to the PAs/MILLING MACHINE TENDER's note and plan are summarized below: [Patient to be admitted to Inpatient Psychiatry.] (Samreen KEATING,Shaggy Combs)
--- NOTE | 2018-01-17 21:04 | ED PSY CRISIS COLLATERAL NOTE ---
Collateral Note Collateral Note Family/Inform/Sy Contacts: This clinician called [facility] [phone] and spoke with the evening staff who reported the patient reported abusing drugs and became suicidal stating she would cut her wrist or throat. The staff called 911 and the patient requested to come to [facility]. (Demetrius BHATIA,Jacobo) Addendum Addendum Catina not have contact with this pt. Was not called by SW on this pt. (Christel KEATING,Maddie)
--- NOTE | 2018-01-18 08:21 | ED PSYCH CRISIS CONSULTATION ---
Crisis Consult Basic Assessment Date of Consult: 01/18/18 Responsible Person/Accompanied By: self/biba Insurance Authorization: Insurance #1: Insurance name: SIMRAN CORONADO Phone number: Policy number: [id number] Group number: Authorization number: ED Provider: Patient's ED Provider: Inder Shah Primary Care Physician: Patient's PCP: Patient Has No Primary Care Dr PCP's Phone Number: Chief Complaint: Psychiatric Related Complaint Patient's Quote: Tired of playing games with myself. I can't do it anymore. Present Illness: Pt is 57 yo female biba last eveing to [facility] following suicidal statements made to staff at [facility] in [place]. Pt had resided there since [facility] discharge on 01/08 and was being kicked out due to Klonopin use the day before. Pt reports after getting her Methadone dose at [facility] on Sun she bought some Klonopin pills to get high. Pt reports taking 6 pills. She reports this was her first benzo use since discharge from [facility]. Pt reports she told staff she planned to cut her wrists. During crisis eval pt continued to verbalize wanting to and in triage stated plan to o/d on benzos. Pt reports she was suppossed to engage in IOP at [facility] but hasn't yet but also is continuing to make calls to get admitted to [facility]. She reports participating in a phone screening on Sunday. She denies any current HI / AH/ VH. Pt presented as depressed, tearful; lethargic and OX3. Pt has a prior hx of suicide attempt and reports an intentional pill overdose 2 months ago. She has been feeling helpless, hopeless and worthless. She states "I'm tired of playing games with myself. I can't do it anymore". Pt reports continued bereavement of and father and has minimal supports. Case reviewed with Dr Jacobsen with recommendation for inpatient psychiatric admission. Pt in agreement with plan and has signed voluntary admission form to admit to [facility]. Patient's Address: [address] [place] [address] Other Phone Number: Who Do You Live With? Significant Other Family/Informants Interviewed: collateral provided by [facility] - see note Allergies - Coded Allergies: Penicillins (SWELLING 12/23/17) Current Medications - Scheduled Medications Escitalopram Oxalate 20 MG TABLET 1 TAB PO DAILY depression/anxiety #30 TAB Prescribed by Pernell Lomas MD on 01/10/18 Gabapentin 600 MG TABLET 1 TAB PO TID anxiety #90 TAB Prescribed by Pernell Lomas MD on 01/10/18 Methadone Hydrochloride (Methadone HCl) 10 MG TABLET 70 MG PO DAILY@0800 maintenance #1 TAB Prescribed by Pernell Lomas MD on 01/10/18 Trazodone HCl 150 MG TABLET 1 TAB PO QPM sleep #30 TAB Prescribed by Pernell Lomas MD on 01/10/18 Laboratory Results: Laboratory Tests 01/17/18 1806: Urine Opiates Screen < 100, Methadone Screen > 735 H, Barbiturate Screen < 60, Ur Phencyclidine Scrn < 6.00, Amphetamines Screen < 100, U Benzodiazepines Scrn 329 H, Urine Cocaine Screen < 50, Urine Cannabis Screen < 5.00, Urine Color YEL , Urine Clarity CLEAR, Urine pH 6.5, Ur Specific [place] 1.010, Urine Protein NEG, Urine Ketones NEG, Urine Nitrite NEG, Urine Bilirubin NEG, Urine Urobilinogen 0.2, Ur Leukocyte Esterase NEG, Ur Microscopic EXAM NOT REQUIRED, Urine Hemoglobin NEG, Urine Glucose NEG 01/17/18 1729: Anion Gap 11, Estimated GFR 46 L, BUN/Creatinine Ratio 10.8, Glucose 100 H, Calcium 9.2, Total Bilirubin 0.4, AST 27, ALT 29, Alkaline Phosphatase 59, Total Protein 7.6, Albumin 4.2, Globulin 3.4, Albumin/Globulin Ratio 1.2, CBC w Diff NO MAN DIFF REQ, RBC 4.25, MCV 87.8, MCH 29.6, MCHC 33.8, RDW 13.0, MPV 7.9, Gran % 49.7, Lymphocytes % 38.1, Monocytes % 6.1, Eosinophils % 5.3 H, Basophils % 0.8, Absolute Granulocytes 4.6, Absolute Lymphocytes 3.5 H, Absolute Monocytes 0.6, Absolute Eosinophils 0.5, Absolute Basophils 0.1, Serum Alcohol < 10.0 Past History Past Medical History Cardiovascular: HYPOTENSION Respiratory: NONE Gastrointestinal: constipation Renal: NONE Musculoskeletal: NONE Psychiatric: alcohol dependence, ADJUSTMENT DISORDER Past Surgical History Surgical History: non-contributory Psychosocial History Strengths/Capabilities: pt is motivated for treatment but is "tired" of IOP groups Physical Limitations (Interventions): None noted Psychiatric Treatment History Psych Treatment Psychiatric Treatment Yes Inpatient Treatment Yes Outpatient Treatment Yes Diagnosis by History: The patient states that she was diagnosed with Bipolar Disorder Substance Use/Abuse History Drug Use/Abuse 1 Substances Used/Abused Yes Substance Used/Abused Benzodiazepines Last Used 2 days ago How much used/taken 6 pills How often first use since [facility] discharge on 01/08 Drug Use/Abuse 2 Substances Used/Abused Yes Substance Used/Abused Prescribed Opiates Last Used this morning How much used/taken 70 mg How often daily For how long 6 years Substance Abuse Treatment Substance Abuse Treatment Past Substance Abuse TX Yes Inpatient Treatment Yes Outpatient Treatment Yes Location of Treatment [facility]; [facility] Reason for Treatment methadone maintenance Dates of Treatment past 2 yrs Response to Treatment pt experiencing depression and episodes of benzo relapse Comments: Pt on is on methadone maintenance therapy for opiate d/o. Pt hx of benzo abuse - relapse on klonopin 2 days ago Current Mental Status Mental Status Orientation: Person, Place, Situation Affect: Depressed Speech: WNL Neuro-vegetative: Anhedonia, Concentration Poor, Energy Decreased, Helpless, Loss of Interest, Sleep Disturbance Appearance Appearance- Dress/Hygiene: hospital scrubs; styled hair; recently manicured finger nails; tearful; poor eye contact. Behaviors Thought Process: WNL Thought Content: WNL Memory: WNL Insight: Fair SI/HI Risk Assessment Past Suicidal Ideation/Attempts Yes Current Suicidal Ideation/Att Yes Past Homicidal Ideation/Att: No Current Homicidal Ideation/Attempts No Degree of Intent: States Intent Danger To: Self Gravely Disabled: Poor Impulse Control, Poor Judgment Risk Factors: chronic/serious med cond., high anxiety/distress, history of suicide atmpts, SA/MH hospitalized, substance abuse, poor impulse control, limited support Lethality Ratin PTSD Checklist PTSD Done? patient declined ED Management Sitter: Yes Restraints: No DSM5/PS Stressors/Medical Prob Diagnosis' (DSM 5, Stressors, Medical): Major Depressive D/O F33.2 Benzo Use D/O F13.20 Opiate Use D/O in maintenance therapy F11.20 bereavement financial housing diabetes Current GAF: 20 Comments: Pt reports Klonopin relapse yesterday and being kicked out of [facility]. Pt reports SI with intent to o/d on Klonopin or cut her wrists Departure Disposition Psych Medical Clearance Date: 01/18/18 Medically Cleared at: 729 Time Started: 729 Time Ended: 814 Psychiatrist Consulted: Kenney Jacobsen MD Date Disposition Established: 01/18/18 Time Disposition Established: 814 Plan for Disposition - Modality: Inpatient Psychiatry Facility: [facility] Rationale for Disposition: need for acute mood stabilization and medication assessment Type of IP Admission: Voluntary Referrals Patient Has No Primary Care Dr (PCP/Family)
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
[2018-01-18 19:59] VITALS: BP 97/68
--- NOTE | 2018-01-18 22:56 | PN- Att Addend ---
Attending Addendum Attending Brief Note 57 yo F smoker with h/o diabetes (diet controlled), Hep C s/p Rosie, CKD stage 3, previous alcohol abuse, opiate dependence on methadone maintenance program, was recently admitted to Inpatient psychiatry (November 2017) for depression and SI , is re-admitted for suicidal ideation. She also relapsed on klonopin use. Please refer to Psych H and P for full details. She currently denies chest pain, dyspnea, palpitations, lightheadedness, GI or symptoms. Vital Signs Date Time Temp Pulse Resp B/P B/P Pulse O2 O2 Flow FiO2 Mean Ox Delivery Rate 01/18 1959 99.4 71 97/68 04 1646 58 18 114/68 96 Room Air 01/18 1418 99.4 57 20 105/58 94 Room Air 01/18 1145 71 18 123/76 95 Room Air 01/18 0911 64 16 108/62 97 Room Air Physical Exam: General: awake, alert oriented, no distress Neck: supple Chest: clear Cor: RRR nl S1, S2 w/o murmur Abd: BS+, soft, no significant tenderness Ext: no edema Neuro: grossly intact Laboratory Tests 01/17 01/17 1806 1729 Chemistry Sodium (137 - 145 mmol/L) 143 Potassium (3.5 - 5.1 mmol/L) 4.1 Chloride (98 - 107 mmol/L) 100 Carbon Dioxide (22 - 30 mmol/L) 31 H Anion Gap (5 - 16) 11 BUN (7 - 17 mg/dL) 13 Creatinine (0.5 - 1.0 mg/dL) 1.2 H Estimated GFR (>60 ml/min) 46 L BUN/Creatinine Ratio (7 - 25 %) 10.8 Glucose (65 - 99 mg/dL) 100 H Calcium (8.4 - 10.2 mg/dL) 9.2 Total Bilirubin (0.2 - 1.3 mg/dL) 0.4 AST (14 - 36 U/L) 27 ALT (9 - 52 U/L) 29 Alkaline Phosphatase (<127 U/L) 59 Total Protein (6.3 - 8.2 g/dL) 7.6 Albumin (3.5 - 5.0 g/dL) 4.2 Globulin (1.9 - 4.2 gm/dL) 3.4 Albumin/Globulin Ratio (1.1 - 2.2 %) 1.2 Hematology CBC w Diff NO MAN DIFF REQ WBC (4.8 - 10.8 /CUMM) 9.3 RBC (4.20 - 5.40 /CUMM) 4.25 Hgb (12.0 - 16.0 G/DL) 12.6 Hct (37 - 47 %) 37.3 MCV (81.0 - 99.0 FL) 87.8 MCH (27.0 - 31.0 PG) 29.6 MCHC (33.0 - 37.0 G/DL) 33.8 RDW (11.5 - 14.5 %) 13.0 Plt Count (130 - 400 /CUMM) 216 MPV (7.4 - 10.4 FL) 7.9 Gran % (42.2 - 75.2 %) 49.7 Lymphocytes % (20.5 - 51.1 %) 38.1 Monocytes % (1.7 - 9.3 %) 6.1 Eosinophils % (0 - 5 %) 5.3 H Basophils % (0.0 - 2.0 %) 0.8 Absolute Granulocytes (1.4 - 6.5 /CUMM) 4.6 Absolute Lymphocytes (1.2 - 3.4 /CUMM) 3.5 H Absolute Monocytes (0.10 - 0.60 /CUMM) 0.6 Absolute Eosinophils (0.0 - 0.7 /CUMM) 0.5 Absolute Basophils (0.0 - 0.2 /CUMM) 0.1 Toxicology Urine Opiates Screen (>2000 NG/ML) < 100 Methadone Screen (>300 NG/ML) > 735 H Barbiturate Screen (>200 NG/ML) < 60 Ur Phencyclidine Scrn (>25 NG/ML) < 6.00 Amphetamines Screen (>1000 NG/ML) < 100 U Benzodiazepines Scrn (>200 NG/ML) 329 H Urine Cocaine Screen (>300 NG/ML) < 50 Urine Cannabis Screen (>50 NG/ML) < 5.00 Serum Alcohol (<10 MG/DL) < 10.0 Urines Urine Color (YEL,AMB,STR) YEL Urine Clarity (CLEAR) CLEAR Urine pH (5.0 - 8.0) 6.5 Ur Specific [place] (1.001 - 1.035) 1.010 Urine Protein (NEG,<30 MG/DL) NEG Urine Ketones (NEG) NEG Urine Nitrite (NEG) NEG Urine Bilirubin (NEG) NEG Urine Urobilinogen (0.1 - 1.0 EU/dl) 0.2 Ur Leukocyte Esterase (NEG) NEG Ur Microscopic EXAM NOT REQUIRED Urine Hemoglobin (NEG) NEG Urine Glucose (N MG/DL) NEG Assessment and plan: 57 yo F smoker with h/o diabetes (diet controlled), Hep C s/p Harvoni, CKD stage 3, previous alcohol abuse, opiate dependence on methadone maintenance program, is admitted for depression and SI. - Continue management per Psych team. - Accucheks TIDAC - Diabetic diet - Patient was tried on metformin the last admission, but she developed severe GI symptoms and was taken off it. She has not seen her PCP since to decide if she needs to be on diabetic meds. Her last HbA1c is 6.4 (November 2017). We will continue to watch her sugars for now on a diabetic diet. If elevated, will consider sulfonylureas and call Endo consult. - Smoking cessation counseling, nicotine patch. - Her creatinine is ranging from 1.1-1.2, will need to be watched as outpatient. DVT ppx - low risk, early ambulation.
[2018-01-19 08:55] VITALS: BP 110/69
[2018-01-19 12:09] VITALS: BP 92/59
[2018-01-19 15:41] VITALS: BP 102/57
--- NOTE | 2018-01-19 15:42 | CPS PROVIDER INIT ASMT PSYCH ---
Psychiatric Admission Plating Department Helper's Note Reviewed: Yes Patient Seen and Examined: Yes Identifying Information: 57-year-old white female Chief Complaint: "It was a bozo show at crisis and resp[facility]!" Reaction to Hospitalization: Voluntary admit History of Present Illness Onset of Illness: Approximately 8 years ago. The patient reported that she was in treatment in [place] with the same providers for about 6 years before moving to [place] 2 years ago Circumstances Leading to Admission: -d/c'd from [facility] January 08, 2018 where she was hospitalized for SI and depression and dc'd to [facility]ite in [place] -Described numerous subjective indignities at this program including problems with food, frustration that the staff accused her of bringing drugs into the house, and lack of assistance with transportation -Purchased benzos and used these -called 911 with SI (plan to cut wrists) in context of frustration with crisis/ respite. "I had to get out of there!" Problem(s) Justifying Need for Admission: -Suicidal ideation with plan -Depressed mood Other HPI: please see crisis SW note for further details Past Psychiatric History Past Diagnosis(es)- if any: Per 01/10/18 d/c summary [facility] Unspecified depressive disorder Opioid dependence Past Precipitating Factors- if any: Substance use Treatment non-compliance - Include inpatient and outpatient treatment Treatment History: [facility] 12/2017 Per notes: The patient reported that she was in treatment in [place] with the same and 2 providers and was stable for 6 years before having to move to [place] 2 years ago reportedly to take care of her parents. History of Suicide Attempts or Gestures Per notes, 2-3 previous suicide attempts with last suicide attempt as o/d in November 2017 Substance Abuse History: Opioid use disorder, currently on MMT through [facility] in [place] Per record, h/o of sedative/hypnotic use disorder Allergies: Coded Allergies: Penicillins (SWELLING 12/23/17) Home Med List: [facility] d/c med list 12/2017 Methadone 70 mg daily LExapro 20 mg daily Trazodone 150 mg nightly Gabapentin 600 mg TID - Include any medical condition(s) that may - impact the patient's recovery/remission Past History Medical History Neurological: NONE EENT: NONE Cardiovascular: NONE Respiratory: NONE Gastrointestinal: NONE Hepatic: NONE Renal: NONE Musculoskeletal: NONE Psychiatric: anxiety, bipolar disease, depression, opioid dependence, substance abuse Endocrine: diabetes, BORDERLINE? 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 Most recently at crisis and respite through [facility] in [place] Significant Relationships (family/friends): Mother and boyfriend Education: GED Vocation/Occupation: Unemployed Legal: Denies Healthly Behaviors Screening Tobacco Screening Tobacco Use from ED Docu: Current Not Daily - If tobacco counseling indicated - the following topics are required. - #1 Recognizing dangerous situations. - #2 Coping Skills. - #3 Basic information about quitting. Status of Tobacco Cessation Counseling: #1, #2 AND #3 Completed Cessation Med Status Nicotine Gum Ordered Alcohol Screening - ETOH screen POS if BAL >=80 or Audit-C>= M4/F3 Audit-C Score from Diag Assess: 0 Blood Alcohol Level: Laboratory Tests 01/17 1729 Toxicology Serum Alcohol (<10 MG/DL) < 10.0 Alcohol Use Screening Results: Neg per Audit C &/or BAL - If ETOH counseling indicated - the following topics are required. - #1 Express concern about the patient's - drinking at unhealthy levels, include informing - of national norms for moderate drinking: - men <= 14 drinks/week, max 4 drinks/occasion - women <= 7 drinks/week, max 3 drinks/occasion - #2 Providing feedback, including linking alcohol to - negative physical effects (liver injury, hypertension) - negative emotional effects (relationship problems and - depression) - negative occupational consequences (reduced work - performance) - #3 Advising the patient to abstain from alcohol or - to drink below national norms for moderate drinking - (as listed above). Status of ETOH Use Counseling: N/A B/C NO ETOH Use Metabolic Screening - Screen if on a Neuroleptic Medication - Metabolic screening should include: - Blood Pressure, BMI, Glucose or Hgb A1c, & a - Lipid profile from within the past 365 days. Metabolic Screening ([X]) Not Applicable, patient not on a neuroleptic. Exam and Plan Mental Status Examination Ambulation Status: stable Appearance: disheveled Attitude towards examiner: mildly guarded but cooperative Psychomotor activity: slowed Behavior: wnl, teary Quality of speech: quiet Affect: constricted Mood: "depressed" Suicidal Ideation: +passive wish. No plan or intent to harm self on unit. Homicidal Ideation: Denies Hallucinations: Denies Paranoid/Delusional Material: None evidenced Difficulties with thought organization: None evidenced Insight: limited Judgment: poor Orientation: Alert to person, place, time Cognition: Appeared grossly intact Memory Function: Intact short term memory Estimate of intellectual functioning: Average Assets/Strengths Patient Identified Assets/Strengths: Pleasant and likeable Impression/Plan Impression and Plan: 57 y/o CF with recent CPS admit and dc returns after becoming suicidal in the context of being unable to tolerate her living situation at crisis and respite and benzo relapse. She demonstrates limited coping ability and her need for hospitalization likely reflects this rather than a recurrence of depression as she was euthymic at discharge only a few days ago. - Include all active medical diagnosis that require tx DSM 5 Diagnosis(es): Unspecified depressive disorder Opioid use disorder, on maintenance therapy Sedative, hypnotic use disorder, severe - Initial Tx Plan for Active Psych & Medical Conditions Treatment Plan: Admit CPS, 15 min checks Continue CPS dc meds from December SW assistance to continue to try and arrange rehab stay - Factors that would help patient function - in a less restrictive setting. Factors: Not suicidal Appropriate aftercare plan identified
[2018-01-19 20:23] VITALS: BP 110/57
[2018-01-20 07:42] VITALS: BP 103/63
--- NOTE | 2018-01-20 10:43 | CP SOUTH PROGRESS NOTE PSYCH ---
Psych (Inpt) Progress Note Progress Note Include the following elements, when applicable: Involvement in the active treatment of the patient with behavioral observations of the patient and the patient's response to the treatment. Review of the ongoing treatment process in the context of the treatment plan. Indication of how multi-disciplinary staff members are carrying out the treatment plan. Plans for future interventions and recommendations for revision of the treatment plan. Liaison with other physicians/providers. Progress Note: Chart reviewed. Progress discussed with nursing staff. Interviewed patient this morning. Patient reports "I'm feeling a bit blue today". Describes having difficulty tolerating the limited schedule of the weekend. Did report that her crisis/respite found her stuff and will drive it to . +passive SI without intent or plan. No HI. Denies AVH. Vitals and labs reviewed. Findings are: vitals largely wnl. Neg preg test. Mental status exam: marginally groomed CF watching TV. +slowing. No abn movements. Minimal eye contact. Speech quiet, mumbled. Mood "I'm blue". Affect contstricted, non-labile. TP impoverished. TC: +passive SI without intent/plan. Denies HI. Denies percept disturbance. Cognition grossly intact. I/J limited. Assessment and plan: Ongoing difficulty with maintaining mood in context of frustration or situational disturbance. Will continue current pharmacological management with expectation that disposition will be the hansen factor in her treatment plan.
[2018-01-20 12:10] VITALS: BP 113/57
[2018-01-20 16:28] VITALS: BP 95/54
[2018-01-20 19:52] VITALS: BP 97/61
[2018-01-21 07:49] VITALS: BP 115/63
--- NOTE | 2018-01-21 08:38 | CP SOUTH PROGRESS NOTE PSYCH ---
Psych (Inpt) Progress Note Progress Note I reviewed Dr. Brooks notes for the weekend. In the treatment team meeting this morning, the patient's progress was reviewed, and the treatment and aftercare plans were reviewed and updated. The treatment team included: RN, DOCTOR OF NURSE ANESTHESIA, group and activity therapy staff, and psychiatrist. Vitals: Date Time Temp Pulse B/P O2 01/21 0749 98.8 79 115/63 01/20 1952 98.9 77 97/61 Labs: Lab BUN/Creatinine Ratio 10.8 % 01/17/18 1729 Creatinine 1.2 mg/dL H 01/17/18 1729 Estimated GFR 46 ml/min L 01/17/18 1729 Glucose 100 mg/dL H 01/17/18 1729 Mental Status Examination The patient was alert and oriented to time, place, and person. She described her mood as "I'm in a dark place right now". Still feeling hopeless, worthless and discouraged. Still having thoughts of suicde. She denied thoughts of violence or homicide. She denied hallucinations, no abnormal movements, good eye contact. Normal speech, affect contstricted, non-labile. TP impoverished. Denies percept disturbance. Cognition grossly intact. Assessment: Ongoing difficulty with maintaining mood in context of frustration or situational disturbance. Treatment plan update: continue same medications.
[2018-01-21 12:11] VITALS: BP 94/57
[2018-01-21 15:38] VITALS: BP 108/61
--- NOTE | 2018-01-21 17:18 | SOCIAL WORKER PROG NOTE PSYCH ---
Social Work Progress Note Progress Note This check writer met with patient. She stated that she was dissatisfied with the services at [facility] in [place] and was "kicked out" due to alleged substance use, which patient denied to doing before discharge from crisis and respite. She reported to using "2 Klonopin" after discharge from crisis and respite due to her frustration. Patient stated that she has completed a screening with [facility] about 1 week ago (01/15/18) and was informed of a 2-3 week wait. She was provided with their number upon their request and will contact them this afternoon to inquire about the wait list status. Patient stated that she completed a partial screening with [facility] only to learn that they do not accept her insurance. Patient was agreeable to additional referrals ([facility], [facility]; she refused a referral to [facility]). Patient reported SI "because of my frustration"; she denied any plan. She denied HI/ AVH.
[2018-01-21 20:04] VITALS: BP 109/69
[2018-01-22 07:58] VITALS: BP 109/50
--- NOTE | 2018-01-22 08:28 | CP SOUTH PROGRESS NOTE PSYCH ---
Psych (Inpt) Progress Note Progress Note In the treatment team meeting this morning, the patient's progress was reviewed, and the treatment and aftercare plans were reviewed and updated. The treatment team included: RN, VINCE, group and activity therapy staff, and psychiatrist. Vitals: Date Time Temp Pulse B/P B/P O2 FiO2 01/22 0758 98.8 80 109/50 Lab abnormalities: most recent labs were on 01/17/2018 with BUN/Creatinine Ratio of 10.8 %, Creatinine 1.2 mg/dL H, Estimated GFR 46 ml/min L 01/17/18 1729, Glucose 100 mg/dL Mental Status Examination The patient was alert and oriented to time, place, and person. The patient reported that she is still still feeling depressed but she seemed a little bit brighter than yesterday. She did not seem to be as hopeless as yesterday. She reported that the thoughts of suicide still crosses her mind on and off but they do not stay there for long. She denied thoughts of violence or homicide. She denied hallucinations, no abnormal movements, good eye contact. Normal speech, affect contstricted, The patient was coherent, there was no thought disorder. Patient denied feeling paranoid, there were no delusions during the interview. The patient's memory and cognition grossly intact. Assessment: 57-year-old white female who was admitted to the inpatient psychiatric unit at [facility] on January 18, 2018. She was recently discharged from [facility] inpatient psych and was at respite before she was asked to leave reportedly/allegedly because she bought [employer] on the street. Treatment Plan update: Continue methadone 70 mg daily Continue Lexapro 20 mg daily Continue trazodone 150 mg at bedtime continue gabapentin 600 mg 3 times a day continue same medications.
--- NOTE | 2018-01-22 12:07 | SOCIAL WORKER PROG NOTE PSYCH ---
Social Work Progress Note Progress Note GEE LIM [id number] 1960 GEE LIM [id number] Pended Authorization # Client Authorization # Type of Request [id number] CONCURRENT Date of Admission/ Start of Services Requested From Submission Date 01/18/2018 01/22/2018 01/22/2018
[2018-01-22 12:12] VITALS: BP 101/55
[2018-01-22 15:55] VITALS: BP 112/57
--- NOTE | 2018-01-22 18:22 | SOCIAL WORKER PROG NOTE PSYCH ---
Social Work Progress Note Progress Note This video games storywriter met with gus. She reported SI, stating, "I'm just really depressed." She denied HI/AVH. She stated that she feels safe on this unit. Patient maintains that she is not interested in [facility]. This video games storywriter and patient called [facility] and spoke with Linda who stated that the patient is on the wait list and that there will not be any available beds until mid-January. Patient signed an LENNY for [facility] in interest of their inpatient program. This video games storywriter contacted [facility] ([phone]) and spoke with Alesia who informed that they are now called "[facility]." She provided the phone number ) for the patient to complete a phone screening for their inpatient program. Patient was provided with this number.
[2018-01-22 20:12] VITALS: BP 115/72
[2018-01-23 07:42] VITALS: BP 98/61
[2018-01-23 12:21] VITALS: BP 110/68
--- NOTE | 2018-01-23 14:00 | CP SOUTH PROGRESS NOTE PSYCH ---
Psych (Inpt) Progress Note Progress Note In the treatment team meeting this morning, the patient's progress was reviewed, and the treatment and aftercare plans were reviewed and updated. The treatment team included: RN, VINCE, group and activity therapy staff, and psychiatrist. Vitals: Blood pressure 110/68 mmHg, pulse 68 bpm, temperature 98.6F Lab abnormalities: most recent labs were on 01/17/2018 with BUN/Creatinine Ratio of 10.8%, Creatinine 1.2 mg/dL H, Estimated GFR 46 ml/min (low), Mental Status Examination The patient seemed brighter today. She reported that she now has a place to go to an [place] while waiting for a bed at [facility]. She reported that she is excited about that and she feels ready for discharge tomorrow. She was alert and oriented to time, place, and person. The patient reported that she is still still feeling less depressed She denied feeling hopeless and denied thoughts of suicide She denied thoughts of violence or homicide. She denied hallucinations, Normal speech, patient was coherent, there was no thought disorder. Patient denied feeling paranoid, there were no delusions during the interview. The patient's memory and cognition were grossly intact. Assessment: 57-year-old white female who was admitted to the inpatient psychiatric unit at [facility] on January 18, 2018. She was recently discharged from [facility] inpatient psych and was at respite before she was asked to leave reportedly/allegedly because she bought Klonopin on the street. The patient seems to be significantly better today, most likely because she found a place to stay at and insomnia with a friend she said. She reported that she feels ready for discharge tomorrow and waiting for a bed to open up at [facility] Treatment Plan update: Continue methadone 70 mg daily Continue Lexapro 20 mg daily Continue trazodone 150 mg at bedtime continue gabapentin 600 mg 3 times a day
--- NOTE | 2018-01-23 15:50 | SOCIAL WORKER PROG NOTE PSYCH ---
Social Work Progress Note Progress Note This handbook writer met with patient. She stated that she has a place to stay while waiting for an inpatient bed and is eager to discharge tomorrow. She described her mood as "better" and denied SI/HI/AH/VH. Patient stated that she is attending groups and finds them useful/helpful. Patient signed an LENNY for [facility] in interest of this handbook writer following up with them regarding her insurance. This handbook writer spoke with Citlali at [facility], who stated that the the patient was not accepted due to having Medicare A/B. Patient also has [facility] Gan. This handbook writer followed up with admitting regarding the matter, who confirmed that she has Medicare A/B and would update it in the record.
[2018-01-23 16:03] VITALS: BP 106/66
[2018-01-23 20:00] VITALS: BP 115/60
[2018-01-24 07:39] VITALS: BP 124/57
[2018-01-24 12:19] VITALS: BP 101/64
--- NOTE | 2018-01-24 13:13 | CP SOUTH PROGRESS NOTE PSYCH ---
Psych (Inpt) Progress Note Progress Note the patient's progress was reviewed, and the treatment and aftercare plans were reviewed and updated. The treatment team included: RN, YARD SPECIALIST, Group and activity therapy staff, and psychiatrist. Mental Status Examination The patient was alert and oriented to time, place, and person. The patient reported that she is feeling depressed but denied feeling hopeless and denied thoughts of suicide She denied thoughts of violence or homicide. She denied hallucinations and she did not seem to be responding to internal stimuli. His speech was normal, not pressured, not slurred. She was coherent, there was no thought disorder. Patient denied feeling paranoid, there were no delusions during the interview. The patient's memory and cognition were grossly intact. Assessment: 57-year-old White female who was admitted to the inpatient psychiatric unit on January 18, 2018. She came to [facility] for reporting thoughts of suicide. The patient is waiting for a bed to open up at [facility] Treatment Plan update: Continue methadone 70 mg daily Continue Lexapro 20 mg daily Continue trazodone 150 mg at bedtime continue gabapentin 600 mg 3 times a day
[2018-01-24 15:54] VITALS: BP 106/69
--- NOTE | 2018-01-24 16:50 | SOCIAL WORKER PROG NOTE PSYCH ---
Social Work Progress Note Progress Note This fha underwriter met with patient. Patient reported feeling sad as her late ' s birthday is tomorrow. Patient stated that she was relieved that she was at the hospital today as she feels that she would have relapsed had she been discharged. Patient stated that she would call [facility] again and also follow up with [facility] Hern[facility]. She was informed of this fha underwriter's call to [facility] and that they confirmed her understanding that they do not accept her insurance. Patient, again, refused a referral to [facility]. Patient requested a prayer card. This fha underwriter and patient spoke with Winnie (mental health clinician) about this and that patient could request to meet with a funeral prearrangement counselor if she would like. Patient stated that this was not necessary at this time. Patient denied SI/HI/AH/VH.
[2018-01-24 19:44] VITALS: BP 115/67
[2018-01-25 07:35] VITALS: BP 104/55
[2018-01-25 12:16] VITALS: BP 110/56
--- NOTE | 2018-01-25 13:58 | CP SOUTH PROGRESS NOTE PSYCH ---
Psych (Inpt) Progress Note Progress Note the patient's progress was reviewed, and the treatment and aftercare plans were reviewed and updated. The treatment team included: RN, SWATCH CHECKER, Group and activity therapy staff, and psychiatrist. Vital Signs Date Time Temp Pulse Resp B/P B/P Pulse O2 O2 Flow FiO2 Mean Ox Delivery Rate 01/25 1216 70 110/56 01/25 0735 98.4 83 104/55 01/24 1944 99.1 86 115/67 01/24 1554 78 106/69 Mental Status Examination The patient reported that she does not feel safe going home before the weekend. She reports that she is definitely sure that she will continue to have a housing option on Sunday and that she would be ready for discharge then. She was alert and oriented to time, place, and person. The patient reported that she is feeling depressed but denied feeling hopeless and denied thoughts of suicide while on the unit She denied thoughts of violence or homicide. She denied hallucinations and she did not seem to be responding to internal stimuli. His speech was normal, not pressured, not slurred. She was coherent, there was no thought disorder. Patient denied feeling paranoid, there were no delusions during the interview. The patient's memory and cognition were grossly intact. Assessment: 57-year-old White female who was admitted to the inpatient psychiatric unit on January 18, 2018. She came to [facility] for reporting thoughts of suicide. The patient is waiting for a bed to open up at [facility] Treatment Plan update: Continue methadone 70 mg daily Continue Lexapro 20 mg daily Continue trazodone 150 mg at bedtime continue gabapentin 600 mg 3 times a day
[2018-01-25 16:07] VITALS: BP 104/68
--- NOTE | 2018-01-25 17:47 | SOCIAL WORKER PROG NOTE PSYCH ---
Social Work Progress Note Progress Note This tag writer met with patient. She discussed feeling triggered today due to it being her late 's birthday. Patient discussed keeping focus on her recovery and that she will call [facility]. She stated that she will also continue to try to reach [facility]. Patient denied SI/HI/AH/VH. She stated that she plans to stay with a friend in [place] while she waits for an inpatient bed. She stated that she will attend IOP and Methadone treatment at [facility] while waiting for the inpatient bed. Patient stated that she does not feel ready or safe to leave today and will discuss discharge further with Dr. Lomas when they meet. This tag writer was able to reach [facility] and discussed their referral process. They requested the patient's history and physical, social and medication list to be faxed to [phone] (faxed at 11:37 am today). This tag writer was informed that the patient may utilize their walk in hours to further pursue inpatient treatment. Patient was informed of this and will follow up with them.
[2018-01-25 20:01] VITALS: BP 112/56
[2018-01-26 07:42] VITALS: BP 117/56
[2018-01-26 12:26] VITALS: BP 112/69
[2018-01-26 15:41] VITALS: BP 120/62
--- NOTE | 2018-01-26 17:04 | CP SOUTH PROGRESS NOTE PSYCH ---
Psych (Inpt) Progress Note Progress Note Include the following elements, when applicable: Involvement in the active treatment of the patient with behavioral observations of the patient and the patient's response to the treatment. Review of the ongoing treatment process in the context of the treatment plan. Indication of how multi-disciplinary staff members are carrying out the treatment plan. Plans for future interventions and recommendations for revision of the treatment plan. Liaison with other physicians/providers. Progress Note: down, angry affect, stated that her husbasnd of 27 years a year ago yesterday and she is depressed about this; however this was not noted in previous recent notes, she did not appear to bring this up before? unclear reason. She stated that she is grumpy but does not want to just having a bad day. appetite is fine. Does not have any family visits b/c she is from [place], encouraged her to make phone calls to family to have more support. MSE: middle aged woman, fair grooming, poor eye contact. no movement disorder. Gait normal. Her thinking is concrete and goal directed. Speech is normal. Her affect is constricted and mood is depressed. She is not suicidal and not hallucinating. She is not psychotic. Insight and judgment are fair. Plan: continue current plan of care. will add in dose of hydroxyzine for now to assist in residual anxiety, continue other meds.
[2018-01-26 20:03] VITALS: BP 113/60
[2018-01-27 07:33] VITALS: BP 110/55
--- NOTE | 2018-01-27 10:15 | CP SOUTH PROGRESS NOTE PSYCH ---
Psych (Inpt) Progress Note Progress Note Include the following elements, when applicable: Involvement in the active treatment of the patient with behavioral observations of the patient and the patient's response to the treatment. Review of the ongoing treatment process in the context of the treatment plan. Indication of how multi-disciplinary staff members are carrying out the treatment plan. Plans for future interventions and recommendations for revision of the treatment plan. Liaison with other physicians/providers. Progress Note: Stated that she feels much better compared to yesterday, that she is still down but overall more focused on discharge and future oriented. Was sitting with peer keeping her company, which made her feel better. Stated that she will live with a friend in [place] until she gets a bed in Rehab, and attend [facility]. Did not take any PRN hydroxyzine and was able to cope on her own yesterday. Participated in group and is coloring to help her relax today. MSE: middle aged woman, fair grooming, good eye contact. no movement disorder. Gait is normal. Her thinking is logical and linear. Her speech is normal volume and rate. Her affect is less constricted and her mood is good. She is not homicidal or suicidal, and she is not hallucinating. There is no evidence of delusional or disorganized thinking. Her insight is improving and judgment is good. Plan: continue current plan of care. d/c prn hydroxyzine. Improving clinically and stabilized for discharge likely tmr.
[2018-01-27 11:54] VITALS: BP 114/63
[2018-01-27 15:28] VITALS: BP 111/63
[2018-01-27 19:41] VITALS: BP 120/66
[2018-01-28 07:51] VITALS: BP 115/60
[2018-01-28] MEDS ORDERED: GABAPENTIN600 M1 PO (08:09)
[2018-01-28] MEDS ORDERED: TRAZODONE HCL150 M1 PO (08:09)
[2018-01-28] MEDS ORDERED: ESCITALOPRAM OX20 MG PO (08:09)
--- NOTE | 2018-01-28 08:14 | Patient Discharge Instructions ---
Psych Discharge Inst General Discharge Information Reason for Admission: suicidal statements made to staff at [facility] [place]. Psy Discharge Primary Diag+ unspecified depressive di Psy Discharge Secondary Diag+ opioid use disorder, on m Summary Tests/Major Procedures Lab BUN 13 mg/dL 01/17/18 1729 Creatinine 1.2 mg/dL H 01/17/18 1729 Estimated GFR 46 ml/min L 01/17/18 1729 Studies Pending at DC: None Patient Instructions Contact Information Your Psychiatrist on [facility] was Pernell Lomas MD * If you are experiencing an emergency related to this hospitalization, please call [phone] to contact the treating psychiatrist or the psychiatrist-on- call. * To Request a copy of your medical records, please contact the Medical Records Department at [phone]. * To request results of studies pending at the time of discharge, please call [phone]. * Continue your Medications until directed to stop by your Healthcare provider. General Medication Information Please continue to take your new medications and your continued home medications , unless otherwise indicated on your discharge medication list, or unless directed by your MD or LEGAL CASHIER to stop them. Special Instructions Diet Diabetic Activity Normal Other Inst/Recommendations please follow-up with your primary care physician to monitor blood sugars - Tobacco Use Treatment Offered Post DC Medications Offered: Refused Tob Medication Tx Post DC Tobacco Treatment Plan: Refused Tobacco Tx Pgm - EtOH/Drug Use D/O Treatment Offered Post DC Medications Offered: Script Given-See Med List Post DC EtOH/SubAbuse TX Plan: Other SubAbuse/Dual Pgm Metabolic Screening ([X]) Not Applicable, patient not on a neuroleptic. Advance Directives Does the Patient have Medical Advance Directives No/Per pt req info given Does Pt have Psychiatric Advance Directives? No/Refused further info Does Patient have a Designated Surrogate Decision Maker: No Information About Psychiatric Advance Directives Provided? Refused Discharge Plan Post Hospital Treatment Plan: [facility]
--- NOTE | 2018-01-28 10:29 | SOCIAL WORKER PROG NOTE PSYCH ---
Social Work Progress Note Progress Note [facility] concurrent review entered as review was due on 01/26/18. A vm was left for Daria at [facility] ([phone]) informing her of this and that a discharge review will also be entered for the patient's discharge today. Member Name Member ID Member Subscriber Name Subscriber ID GEE [id number] GEE [id number] Pended Authorization # Client Authorization # Type of Request [id number] CONCURRENT Date of Admission/ Start of Services Requested From Submission Date 01/18/2018 01/26/2018 01/28/2018 Level of Service Type of Service Level of Care Type of Care INPATIENT/OC Mental Health Inpatient Inpatient Hospital - Inpatient Hospital Reason Code P77
[2018-01-28 12:10] VITALS: BP 122/72
--- NOTE | 2018-01-28 12:16 | CP SOUTH PROGRESS NOTE PSYCH ---
Psych (Inpt) Progress Note Progress Note Vital Signs Date Time Temp Pulse Resp B/P B/P Pulse O2 O2 Flow FiO2 01/28 1210 76 122/72 01/28 0751 97.3 86 115/60 01/27 1941 97.8 68 120/66 01/27 1528 70 111/63 MSE: The patient was alert and oriented to time, place, and person. She seemed to be in good spirits and was focused on discharge and future oriented. She denied feeling hopeless she denied thinking of suicide or wishing . She reported that she feels ready for discharge. She plans to live with a friend in [place] until she gets a bed in Rehab, and attend [facility]. The patient was coherent, thinking is logical and linear. Her speech is normal volume and rate. Her affect is less constricted and her mood is good. She is not homicidal or suicidal, and she is not hallucinating. There is no evidence of delusional or disorganized thinking. Her insight is improving and judgment is good. Plan: Discharge home with a plan to follow-up with intensive outpatient program.
--- NOTE | 2018-01-28 14:12 | DISCHARGE SUMMARY REPORT-PSYCH ---
Visit Information Visit Dates/Diagnosis' Admission Date: 01/18/18 Discharge Date: 01/29/18 Reason for Admission: suicidal statements made to staff at [facility] in [place]. Psy Discharge Primary Diag: unspecified depressive di Psy Discharge Secondary Diag: opioid use disorder, on m Hospital Course Significant Lab Findings: Lab BUN/Creatinine Ratio 10.8 % 01/17/18 1729 Calcium 9.2 mg/dL 01/17/18 1729 Creatinine 1.2 mg/dL H 01/17/18 1729 Estimated GFR 46 ml/min L 01/17/18 1729 Glucose 100 mg/dL H 01/17/18 1729 Total Bilirubin 0.4 mg/dL 01/17/18 1729 Course Complications: The patient did not have any complications during this the inpatient psychiatric admission Consultations: The patient had a history and physical examination performed while she was on the inpatient psychiatric unit. Please refer to the patient's electronic health record for the details of the H&P Allergies: Coded Allergies: Penicillins (SWELLING 12/23/17) Hospital Course/TX Response: The patient was readmitted soon after her discharge from Inpatient Psychiatry previously. The initial psychiatric assessment was done by Dr. Wahl on 2017: Impression and Plan: 57 y/o CF with recent CPS admit and dc returns after becoming suicidal in the context of being unable to tolerate her living situation at [facility] and benzo relapse. She demonstrates limited coping ability and her need for hospitalization likely reflects this rather than a recurrence of depression as she was euthymic at discharge only a few days ago. Diagnosis(es): Unspecified depressive disorder Opioid use disorder, on maintenance therapy Sedative, hypnotic use disorder, severe Treatment Plan: Admit CPS, 15 min checks Continue CPS dc meds from December SW assistance to continue to try and arrange rehab stay 01/20/2018: Ongoing difficulty with maintaining mood in context of frustration or situational disturbance. Will continue current pharmacological management with expectation that disposition will be the hansen factor in her treatment plan. 01/21/2018: There were no changes made in the patient's treatment plan 01/22/2018: Continue methadone 70 mg daily Continue Lexapro 20 mg daily Continue trazodone 150 mg at bedtime continue gabapentin 600 mg 3 times a day 01/23/2018: There were no changes made in the patient's treatment plan or medications 01/24/2018: The patient was alert and oriented to time, place, and person. She seemed to be in good spirits and was focused on discharge and future oriented. She denied feeling hopeless she denied thinking of suicide or wishing . She reported that she feels ready for discharge. She plans to live with a friend in [place] until she gets a bed in Rehab, and attend IOP. The patient was coherent, thinking is logical and linear. Her speech is normal volume and rate. Her affect is less constricted and her mood is good. She is not homicidal or suicidal, and she is not hallucinating. There is no evidence of delusional or disorganized thinking. Her insight is improving and judgment is good. Plan: Discharge home with a plan to follow-up with intensive outpatient program. Discharge HBIPS - Tobacco Use Treatment Offered Post DC Medications Offered: Refused Tob Medication Tx Post DC Tobacco Treatment Plan: Refused Tobacco Tx Pgm - EtOH/Drug Use D/O Treatment Offered Post DC Medications Offered: Script Given-See Med List Post DC EtOH/SubAbuse TX Plan: Other SubAbuse/Dual Pgm Metabolic Screening - Screen if on a Neuroleptic Medication - Metabolic screening should include: - Blood Pressure, BMI, Glucose or Hgb A1c, & a - Lipid profile from within the past 365 days. Metabolic Screening ([X]) Not Applicable, patient not on a neuroleptic. Discharge Instructions General Discharge Information Multiple Neuroleptics: ([X]) Not Applicable Discharge Diet Diabetic Discharge Activity Normal DC Disposition: The patient was discharged to self-care, staying with a friend Referrals Ordered Referrals Provider Referral 01/30/18 For Groups: [[facility]] [address], [place] [phone] Patient will resume Methadone treatment at the [facility] on [address] [place] [address] between 5am and 3pm on 01/30/18. She will request to speak with a clinician during this visit in order to engage in IOP. Inpatient/Rehab phone numbers - [facility]: [phone] - [facility]: [phone] - [facility] [address] [place] [address] Cara at [facility]: [phone] Provider Referral 01/30/18 For Providers: [[facility]] For Groups: [[facility]] [facility] [address], [place] [phone] Group meets every other Sunday Next Group: 01/30/18, at 4pm Prescriptions Continue taking these medications: Methadone Hydrochloride (Methadone HCl) 10 MG TABLET 70 Milligram ORAL DAILY Qty = 1 Comments: Last Taken:01/29/18 Time:0800 Gabapentin (Gabapentin) 600 MG TABLET 1 Tablet ORAL THREE TIMES DAILY Qty = 90 Comments: Last Taken:01/29/18 Time:0800 This prescription has been renewed Escitalopram Oxalate (Escitalopram Oxalate) 20 MG TABLET 1 Tablet ORAL DAILY Qty = 30 Comments: Last Taken:01/29/18 Time:0800 This prescription has been renewed Trazodone HCl (Trazodone HCl) 150 MG TABLET 1 Tablet ORAL Every night Qty = 30 Comments: Last Taken:01/29/18 Time:2200 This prescription has been renewed Other Inst/Recommendations please follow-up with your primary care physician to monitor blood sugars Studies Pending at Discharge None Copies To: CRISTOPHER Giles
[2018-01-28 16:24] VITALS: BP 126/70
--- NOTE | 2018-01-28 17:28 | SOCIAL WORKER PROG NOTE PSYCH ---
Social Work Progress Note Progress Note This insurance underwriter met with patient. She expressed looking forward to discharging today and will follow up with [facility] regarding bed availability. She was also agreeable to a referral to the [facility] in [place]. This insurance underwriter contacted [facility] and was informed that they are not accepting referrals as their wait list was full, but that the patient could be provided with the phone number. Patient accepted the number. Patient stated that she plans to stay with a friend in [place], but refused to allow this insurance underwriter to contact the friend to confirm these plans. Patient stated that she would attend IOP, Methadone maintenance and medication management through [facility] in [place] while waiting for an inpatient bed. This insurance underwriter spoke with Day at the [facility] and was informed that the patient could go to [facility] 5am until 3pm for Methadone maintenance. Patient will be able to speak with a clinician about engaging in IOP. Regarding medication management services, patient may utilize walk in hours on Mondays and Tuesdays at 7:30am. This insurance underwriter spoke with Cara ([phone]) at [facility]. She requested that the History and Physical, Social and Medication List is refaxed ([phone], faxed at 12:35pm). She confirmed that the fax number used on 01/25/18 ) was correct. Patient may utilize walk in hours on Sun-, /Sun /Sun 8:30-3 and 9:30-3 for an assessment in interest of entering their inpatient program. She stated that the patient may be provided with Cara's direct line ([phone]) and suggested that the patient contact her in regard to Methadone treatment as she would need to transfer the Methadone treatment from [facility] to [facility] if she opted to enter [facility]'s inpatient. Patient was informed of this and agreed to contact her. This insurance underwriter was informed by nursing staff that they overheard the patient on the phone regarding that the plans to stay with the friend may no longer be an option. This insurance underwriter and Alesia (STEFANIA Marion RN) spoke with Dr. Lomas and determined that this insurance underwriter would explore alternate options with the patient. She stated that she does not need a [place] ride as she has verde for a taxi and also has verde for a hotel if her plans to stay with the friend fall through. She stated that she also expects to receive her food stamps on Sunday and receive additional funds on . Per Dr. Lomas, patient was offered to delay today's discharge, though patient refused. Patient made multiple attempts to contact a cab service for transportation upon discharge today. 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 This insurance underwriter and Alesia ([facility] RN) were unable to obtain that information as the line was placed on hold. Patient attempted to call her friend that she will be staying with after discharge, but was unsuccessful in doing so. This insurance underwriter and Donell Burr LCSW discussed this case. Donell contacted Judi Morgan LCSW and the discharge was halted for today. Case will be reviewed tomorrow morning during team. Patient was informed and will continue to try to reach her friend this evening.
[2018-01-28 19:54] VITALS: BP 111/62
[2018-01-29 07:41] VITALS: BP 107/54
--- NOTE | 2018-01-29 10:46 | CP SOUTH PROGRESS NOTE PSYCH ---
Psych (Inpt) Progress Note Progress Note Vital Signs Date Time Temp Pulse Resp B/P B/P Pulse O2 O2 Flow FiO2 01/29 0741 98.3 82 107/54 01/28 1954 98.2 78 111/62 01/28 1624 71 126/70 01/28 1210 76 122/72 The patient's progress and treatment plan and aftercare plans were discussed in the treatment team meeting this morning. Routine consisted of social work staff, nursing staff, therapy staff, and psychiatrist. Mental status examination: The patient was alert and oriented to time, place, and person. She reported that she was frustrated about yesterday's cancellation of discharge at the very last minute. he denied feeling hopeless she denied thinking of suicide or wishing . She reported that she feels ready for discharge. She plans to live with a friend in [place] until she gets a bed in Rehab, and attend [facility]. The patient was coherent and there thinking was logical and linear. Her speech was normal, not pressured nor slurred. She denied having thoughts of violence and denied having thoughts of homicide. She denied hallucinations. There was no evidence of delusional thoughts or disorganized thinking. Plan: Discharge home with a plan to follow-up with intensive outpatient program.
--- NOTE | 2018-01-29 17:12 | SOCIAL WORKER PROG NOTE PSYCH ---
Social Work Progress Note Progress Note This hand sign writer met with patient. Patient stated that she will continue to contact [facility] and also follow up with [facility] regarding their inpatient treatment/rehab. She was provided with their contact numbers. She also stated that she would attend IOP with the [facility] as well as Methadone treatment and medication management at [facility] while waiting for the bed. Patient will go to [facility] tomorrow for Methadone and speak with a counselor about IOP. She will utilize walk in hours on Mondays and Tuesdays for medication management. Patient stated that in the event of a crisis she would "call 911" and also accepted the crisis numbers and warm line numbers upon discharge. Patient denied SI/HI/AH/VH. She spoke with her friend who confirmed that she may come to the friend's home where she will be staying upon discharge today. She confirmed that the friend will be there this afternoon. Patient stated that she does not need [place] as she has money to pay for a taxi. Patient stated that she plans to attend AA/NA meetings as well and has a meeting schedule. Patient also accepted the [facility] information. Discharge plan was reviewed with Dr. Lomas prior to discharge. Faxed Referral(s) Referred To: [facility] Transition of Care Documents sent: Health Summary Faxed to: [facility] Fax #: [phone] Faxed by: Abigail Whaley LCSW Date faxed: 01/29/18 Time Faxed: [phone]
== END 2018-01-29 11:41 | DRG 881 ==
LOC: ERH 17:01 → CP SOUTH 01-18 12:49 → ERHI 01-18 12:49 → ENTRNSPT 01-18 17:40 → EDTRNSPTSTS 01-18 17:42 → EDTRNSPT 01-18 17:42 → CP SOUTH 01-18 17:53 → CMPTRNSPT 01-18 17:55 → ENRESERV 01-18 23:59 → CP SOUTH 01-21 10:08
PROVIDERS: Physician Assistant Medical
DX: F32.9 Major depressive disorder, single episode, unspecified (principal); F11.90 Opioid use, unspecified, uncomplicated
CPT/HCPCS: 80307; 81003; 81025; G0480

== ENCOUNTER 2018-01-31 22:41 | Inpatient (IN) | payer OTHER, MEDICARE ==
[~2018-01-31] VITALS: Ht 167.6 cm; Wt 72.2 kg
--- NOTE | 2018-01-31 23:53 | ED PSYCHIATRIC COMPLAINT ---
History of Present Illness General Chief Complaint: Psychiatric Related Complaint Stated Complaint: BIBA FOR +SI Source: patient, old records, EMS, police Exam Limitations: clinical condition, intoxication Vital Signs & Intake/Output Vital Signs & Intake/Output Vital Signs Date Time Temp Pulse Resp B/P B/P Pulse O2 O2 Flow FiO2 Mean Ox Delivery Rate 02/01 0605 97.0 76 18 97/56 93 Room Air 02/01 0203 97.2 68 20 118/72 97 Room Air 01/31 2257 97.9 74 18 107/65 90 Room Air ED Intake and Output 02/01 0000 01/31 1200 Intake Total Output Total 600 Balance -600 Output, Urine 600 Patient 180 lb Weight Weight Estimated Measurement Method Allergies Coded Allergies: Penicillins (SWELLING 12/23/17) Reconcile Medications Escitalopram Oxalate 20 MG TABLET 1 TAB PO DAILY depression/anxiety Gabapentin 600 MG TABLET 1 TAB PO TID anxiety Methadone Hydrochloride (Methadone HCl) 10 MG TABLET 70 MG PO DAILY@0800 maintenance Trazodone HCl 150 MG TABLET 1 TAB PO QPM sleep Triage Note: PT BIBA ON PE[place] WITH C/O +SI. POLICE AND EMS REPORTS THAT PT WAS BROUGHT TO TRAIN STATION. SHE THEN CALLED PD AND TOLD THEM TO PICK HER UP BECAUSE SHE WANTED TO THROW HERSELF IN FRONT OF A TRAIN. PT ARRIVES EXTREMELY LETHARGIC. DENIES ETOH OR OTHER SUBSTANCE USE. MULTIPLE BAGS BROUGHT TO HOSPITLE BY PT AND INSPECTED BY SECURITY. ABRASIONS TO BILATERAL KNEES. Triage Nurses Notes Reviewed? yes Onset: Just prior to arrival Duration: hour(s):, constant, continues in ED Timing: recent history Severity: severe Associated Symptoms: impaired concentration, suicidal ideation LMP (ages 10-50): post menopausal : No Patient currently breastfeeds: No HPI: Prior to admission patient was at the train station and called the police stating she wanted to kill herself. She reports taking 2 Klonopin to help relax. She denies fever chills nausea vomiting diarrhea abdominal pain chest pain shortness of breath headache dysuria rash bleeding homicidal ideation hallucination. (Sharad KEATING,[place]) Past History Travel History Traveled to [place] past 21 day No Medical History Any Pertinent Medical History? see below for history Neurological: NONE EENT: NONE Cardiovascular: NONE Respiratory: NONE Gastrointestinal: NONE Hepatic: NONE Renal: NONE Musculoskeletal: NONE Psychiatric: anxiety, bipolar disease, depression, opioid dependence, substance abuse Endocrine: diabetes, BORDERLINE? TYPE 2 Blood Disorders: NONE Cancer(s): NONE FINAL ASSEMBLER/Reproductive: NONE History of MRSA: No History of VRE: No History of CDIFF: No Isolation History: Standard Influenza Vaccine: 12/25/17 Surgical History Surgical History: non-contributory Psychosocial History Who do you live with Other (see notes) What is your primary language Slovak Tobacco Use: Refused to answer ETOH Use: denies use Illicit Drug Use: denies illicit drug use Family History Hx Contributory? No (Roscoe Garg MD) Review of Systems Review of Systems Constitutional: Reports: no symptoms. EENTM: Reports: no symptoms. Respiratory: Reports: no symptoms. Cardiovascular: Reports: no symptoms. GI: Reports: no symptoms. Genitourinary: Reports: no symptoms. Musculoskeletal: Reports: no symptoms. Skin: Reports: no symptoms. Neurological/Psychological: Reports: see HPI, anxiety, confusion. Hematologic/Endocrine: Reports: no symptoms. Immunologic/Allergic: Reports: no symptoms. All Other Systems: Reviewed and Negative (Roscoe Garg MD) Physical Exam Physical Exam General Appearance: well developed/nourished, alert, awake, anxious, mild distress Head: atraumatic Eyes: Bilateral: PERRL, EOMI. 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 yes 1 Age <19 or >45 years? yes 1 Depression/Hopelessness? yes 2 Previous Attempts/Psych Care yes 1 Excessive Ethanol/Drug Use? yes 1 Rational Thinking Loss? yes 2 Stated Future Intent? yes 2 Total 10 SAD PERSONS Done? yes (Roscoe Garg MD) Progress Differential Diagnosis: drug intoxication, drug overdose, drug withdrawal, electrolyte abnormality, hypoglycemia Plan of Care: Orders Procedure Date/time Status Regular Diet 02/01 B Active Continuous Observation Monitor 05/04 0330 Active Continuous Observation Monitor 01/31 2335 Active URINE DRUG SCREEN FOR ER ONLY 01/31 2335 Complete ETHANOL 01/31 2335 Complete COMPREHENSIVE METABOLIC PANEL 01/31 2335 Complete CBC WITHOUT DIFFERENTIAL 01/31 2335 Complete ED CRISIS PSYCH CONSULT 01/31 2335 Active Laboratory Tests 02/01/18 0038: Anion Gap 13, Estimated GFR 51 L, BUN/Creatinine Ratio 14.5, Glucose 113 H, Calcium 8.9, Total Bilirubin 0.4, AST 71 H, ALT 37, Alkaline Phosphatase 55, Total Protein 7.5, Albumin 4.2, Globulin 3.3, Albumin/Globulin Ratio 1.3, CBC w Diff NO MAN DIFF REQ, RBC 4.27, MCV 87.7, MCH 29.6, MCHC 33.8, RDW 13.3, MPV 7.8 , Gran % 44.6, Lymphocytes % 38.8, Monocytes % 8.6, Eosinophils % 7.6 H, Basophils % 0.4, Absolute Granulocytes 3.5, Absolute Lymphocytes 3.0, Absolute Monocytes 0.7 H, Absolute Eosinophils 0.6, Absolute Basophils 0, Serum Alcohol 27.0 01/31/182344: Urine Opiates Screen > 4000.00 H, Methadone Screen > 735 H, Barbiturate Screen < 60, Ur Phencyclidine Scrn 8.70, Amphetamines Screen < 100, U Benzodiazepines Scrn 196, Urine Cocaine Screen < 50, Urine Cannabis Screen < 5.00 Hand-Off Endorsed To: Flori KEATING,[place] Endorsed Time: 0700 Pending: consult (Sharad KEATING,[place]coe) Comments: 02/01/2018 7:17:58 AM patient signed out to me by Dr. 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 Crisis evaluation pending. (Flori KEATING,[place]) Departure Departure Disposition: STILL A PATIENT Condition: Stable Clinical Impression Primary Impression: Depression with suicidal ideation Secondary Impressions: Opiate abuse, continuous Referrals: Patient Has No Primary Care Dr (PCP/Family) Departure Forms: Customer Survey General Discharge Information (Sharad KEATING,[place]coe)
[2018-02-01 00:54] LABS: ABSOLUTE BASOPHIL COUNT 0 /CUMM (0.0-0.2); ABSOLUTE EOSINOPHIL COUNT 0.6 /CUMM (0.0-0.7); ABSOLUTE GRANULOCYTE CT 3.5 /CUMM (1.4-6.5); ABSOLUTE MONOCYTE COUNT 0.7 /CUMM (0.10-0.60); BASOPHIL % 0.4 % (0.0-2.0); EOSINOPHIL % 7.6 % (0-5); GRANULOCYTE % 44.6 % (42.2-75.2); HEMATOCRIT 37.5 % (37-47); MEAN CORPUSCULAR HGB 29.6 PG (27.0-31.0); MEAN CORPUSCULAR HGB CONC 33.8 G/DL (33.0-37.0); MEAN CORPUSCULAR VOLUME 87.7 FL (81.0-99.0); MEAN PLATELET VOLUME 7.8 FL (7.4-10.4); PLATELET COUNT 227 /CUMM (130-400); RBC DISTRIBUTION WIDTH 13.3 % (11.5-14.5); RED BLOOD CELL CT 4.27 /CUMM (4.20-5.40); WHITE BLOOD CELL COUNT 7.8 /CUMM (4.8-10.8)
--- NOTE | 2018-02-01 11:08 | ED PSYCHIATRIST/APRN CONSULT ---
Psychiatrist/SHELVING SUPERVISOR ED Consult Assessment and Plan: Psychiatric Consultation Date of consultation 02/01/2018 Reason for consultation: Risk assessment/recommendations as to disposition Background: The patient is a 57-year-old single white female who was brought to the emergency room by the ambulance after she called the 911 stating that she was having thoughts of suicide and wanting to jump on the railroad tracks in front of a train. The patient is known to me from 2 recent inpatient psychiatric treatments. The last inpatient treatment was from 01/18/18 and discharged 01/29/18 Primary Diag: Unspecified depressive disorder; Secondary Diag: opioid use disorder, on methadone maintenance. Please see the previous psychiatric records (both were very recent) followed daily details on her psychiatric history, substance abuse history, family and social history, medications: and discharge aftercare plans. Mental status examination (02/01/2018): The patient appeared sedated, but she insisted's depression not sedation. She was oriented oriented to person and place. She reported that she is feeling very depressed and was having thoughts of suicide. He reported feeling hopeless , helpless, and still thinking about suicide. She denied thoughts of violence or homicide. She denied hallucinations, Her speech was slowed down mildly slurred. However, patient was coherent, there was no thought disorder. Patient denied feeling paranoid, there were no delusions during the interview. The patient's memory and cognition could not be assessed accurately given the amount of sedation. Assessment: 57-year-old white female who comes back to the emergency room about 3 days after her discharge from the inpatient psychiatric unit. The patient was in the inpatient psychiatric unit twice in the past 30 days. The this presentation is very similar to the previous presentation when when she bought Klonopin on the street which resulted in her being kicked out of the respite/continuum of care bed. Most Likely Diagnoses: 1) Unspecified Depressive Disorder. 2) Opioid Use Disorder, on maintenance therapy. 3) Sedative, Hypnotic/Anxiolytic use disorder 4) Diabetes Mellitus 5) Hepatitis C 6) Low eGFR, elevated BUN and Creatinine Recommendations: #1: The patient is in need of inpatient psychiatric care. She is agreeable to signing herself in voluntarily. The patient's methadone will be reduced to 65 mg daily The patient will continue Lexapro 20 mg daily Continue trazodone 150 mg at bedtime continue gabapentin 600 mg 3 times a day
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
--- NOTE | 2018-02-01 16:07 | ED PSY CRISIS COLLATERAL NOTE ---
Collateral Note Collateral Note Family/Inform/Sy Contacts: Discussed with patient that there would be a decrease in methadone due to the positive urine. Patient reluctantly agreed to this, and signed in voluntarily.
[2018-02-01 20:19] VITALS: BP 103/58
--- NOTE | 2018-02-01 22:09 | PN- Gen Med ---
Assessment/Plan Medical Assessment: 57 Y O F with PMH PreDiabetes (currently not on any med), Hep C s/p treatment, Hx alcohol and opiate abuse : on methadone presented in ER for Suicidal ideation and behavior. Patient refuses to talk much and denied any complaints. She fell down yesterday and has lacerations on both knees. She complains of Chronic knee pain, bilateral, mostly in AM, associated with stiffness and cannot walk much in AM. Denied Chest pain/ N/ V/ D/ abdominal pain / Dizziness / LOC/ UTI s/s History and Exam limited as patient is refusing. # Prediabetes : HBA1c 6.4 : diet control, outpatient follow up # Knee pain : NSAID # Opiate abuse : continue methadone # SI : agree with psych plan. Problem List: 1. Depression with suicidal ideation 2. Opiate abuse, continuous Plan: As Above DVT/Prophylaxis: early ambulation low risk Subjective Complaints: See Assessment Review of Systems Constitutional: Reports: no symptoms. Objective Last 24 Hrs of Vital Signs/I&O Vital Signs Date Time Temp Pulse Resp B/P B/P Pulse O2 O2 Flow FiO2 Mean Ox Delivery Rate 02/01 2019 99.1 66 103/58 05/ 1909 98.1 58 18 104/64 97 Room Air Room Air / 1625 70 18 100/62 98 Room Air 05/ 1345 98.0 60 16 91/57 99 Room Air / 1104 97.8 80 20 112/58 97 Room Air 05/ 0605 97.0 76 18 97/56 93 Room Air / 0203 97.2 68 20 118/72 97 Room Air Intake & Output 02/01 1600 02/02 0000 02/02 0800 Intake Total Output Total Balance Patient 72.178 kg Weight Physical Exam General Appearance: Alert, Oriented X3, Cooperative, No Acute Distress Skin: lacerations : both knees HEENT: Atraumatic, PERRLA, EOMI Neck: Supple, No JVD, No thryomegaly, +2 Carotid Pulse wo Bruit Lymphatic: Cervical nl Cardiovascular: Regular Rate, Normal S1, Normal S2 Lungs: Clear to Auscultation, Normal Air Movement Abdomen: Normal Bowel Sounds, Soft, No Tenderness Neurological: Normal Gait, Normal Speech, Strength at 5/5 X4 Ext, Normal Tone, Sensation Intact, Cranial Nerves 3-12 NL, Reflexes 2+ Extremities: No Clubbing, No Cyanosis, No Edema Current Medications: Current Medications Sig/Bonilla Start time Last Medication Dose Route Stop Time Status Admin Acetaminophen 650 MG Q6P PRN 02/01 1330 AC PO Al Hydroxide/Mg 30 ML Q4-6 PRN PRN 02/01 1330 AC Hydroxide PO Benztropine Mesylate 1 MG Q6P PRN 02/01 1330 AC PO Benztropine Mesylate 1 MG Q6P PRN 02/01 1330 AC IM Escitalopram Oxalate 20 MG DAILY 02/02 0900 AC PO Gabapentin 0 .STK-MED ONE 02/01 1513 DC PO Gabapentin 600 MG TID 02/01 1400 AC 02/01 PO 2205 Haloperidol 5 MG Q6P PRN 02/01 1330 AC PO Haloperidol 5 MG Q6P PRN 02/01 1330 AC IM Ibuprofen 400 MG ONCE ONE 02/01 2115 DC 02/01 PO 02/01 2116 2206 Lorazepam 2 MG Q6P PRN 02/01 1330 AC IM Magnesium Hydroxide 30 ML AT BEDTIME PRN 02/01 1330 AC PO Methadone HCl 55 MG ONCE ONE 02/04 0800 AC PO 02/04 0801 Methadone HCl 60 MG ONCE ONE 02/03 0800 AC PO 02/03 0801 Methadone HCl 65 MG ONCE ONE 02/02 0800 AC PO 02/02 0801 Methadone HCl 0 .STK-MED ONE 02/01 0909 DC PO Methadone HCl 70 MG ONCE ONE 02/01 0900 DC 02/01 PO 02/01 0901 0905 Multivitamins 1 TAB DAILY 02/02 0900 AC PO Nicotine 2 MG Q2P PRN 02/01 1330 AC PO Trazodone HCl 150 MG AT BEDTIME 02/01 2100 AC PO Last 24 Hrs of Labs/Mics: Laboratory Tests 02/01/18 1640: Urine Test NEGATIVE
[2018-02-02 07:45] VITALS: BP 108/66
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
[2018-02-02 12:25] VITALS: BP 102/70
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
[2018-02-02 15:49] VITALS: BP 94/60
[2018-02-02 19:50] VITALS: BP 105/56
[2018-02-03 08:05] VITALS: BP 138/74
[2018-02-03 12:28] VITALS: BP 100/59
--- NOTE | 2018-02-03 15:40 | CP SOUTH PROGRESS NOTE PSYCH ---
Psych (Inpt) Progress Note Progress Note Include the following elements, when applicable: Involvement in the active treatment of the patient with behavioral observations of the patient and the patient's response to the treatment. Review of the ongoing treatment process in the context of the treatment plan. Indication of how multi-disciplinary staff members are carrying out the treatment plan. Plans for future interventions and recommendations for revision of the treatment plan. Liaison with other physicians/providers. Progress Note: Case discussed with nurse. Nurse reports that the patient slept well. No major issues. Vital signs stable. Reporting suicidal ideation. Rating pain 5/10. Appearing cheung. Patient seen at 10:23 AM. She was sitting in lounge with peers watching TV but got up and met with me in office. Appears depressed. Feels "not good." She is asking why methadone is being reduced and I explained the rationale. States she will be sick from withdrawal. I told her that we can order clonidine if she manifests withdrawal. Rates sad mood and anxiety both 10/10. Feels hopeless, helpless and worthless. Denies feeling guilty. Reports suicidal ideation. Feels safe here. Denies homicidal ideation. Denies auditory and visual hallucinations and paranoid ideation. States she did not sleep. Appetite is none. Energy is none. States she does not want to take Lexapro anymore because she claims that she gained too much weight on it. IMPRESSION: Slow progress. Continue present treatment plan.
[2018-02-03 16:01] VITALS: BP 105/60
[2018-02-03 19:49] VITALS: BP 95/63
[2018-02-04 07:39] VITALS: BP 101/59
[2018-02-04 12:19] VITALS: BP 120/58
[2018-02-04 15:38] VITALS: BP 121/57
--- NOTE | 2018-02-04 16:31 | SOCIAL WORKER PROG NOTE PSYCH ---
Social Work Progress Note Progress Note This literary writer met with patient. She stated that she would like to discharge "as soon as possible." She stated that she plans on going to [place] to meet her boyfriend and has funds to pay for a hotel room while they both look for wan apartment. She stated that she continues to call [facility] and intends on going to [facility] for their inpatient screening process. Patient denied SI/HI/AH/VH. She stated that she has all of her belongings and does not need to return to where she was staying prior to this admission. Patient stated that she would also call [facility] to schedule a CAN assessment. Patient plans to continue with the [facility] for Methadone treatment, medication management and IOP while waiting for an inpatient bed. Patient was informed that this literary writer would relay this information to Adolfo Laughlin APRN. She stated that she would discuss discharge with him when they meet as well.
--- NOTE | 2018-02-04 16:59 | CP SOUTH PROGRESS NOTE PSYCH ---
Psych (Inpt) Progress Note Progress Note Include the following elements, when applicable: Involvement in the active treatment of the patient with behavioral observations of the patient and the patient's response to the treatment. Review of the ongoing treatment process in the context of the treatment plan. Indication of how multi-disciplinary staff members are carrying out the treatment plan. Plans for future interventions and recommendations for revision of the treatment plan. Liaison with other physicians/providers. Progress Note: I discussed this patient's progress to date, current mental status, treatment process in the context of the treatment plan, and discharge planning with staff/ team in the daily morning inpatient team meeting. I also met with the patient myself in individual session. A total of 25 minutes was spent with the patient with more than 50% spent in counseling and/or coordination of care. SUBJECTIVE: "I fear the fact of being sick, or using. I do not want to use again. OBJECTIVE: Current Medications Sig/Bonilla Start time Last Medication Dose Route Stop Time Status Admin Acetaminophen 650 MG Q6P PRN 02/01 1330 AC PO Al Hydroxide/Mg 30 ML Q4-6 PRN PRN 02/01 1330 AC Hydroxide PO Baclofen 10 MG Q6-PRN PRN 02/04 1700 UNVr PO Benztropine Mesylate 1 MG Q6P PRN 02/01 1330 AC PO Benztropine Mesylate 1 MG Q6P PRN 02/01 1330 AC IM Dicyclomine HCl 20 MG Q6-PRN PRN 02/04 1700 UNVr PO Escitalopram Oxalate 20 MG DAILY 02/02 0900 AC 02/03 PO 0843 Gabapentin 600 MG TID 02/01 1400 AC 02/04 PO 1413 Haloperidol 5 MG Q6P PRN 02/01 1330 AC PO Haloperidol 5 MG Q6P PRN 02/01 1330 AC IM Lorazepam 2 MG Q6P PRN 02/01 1330 AC IM Magnesium Hydroxide 30 ML AT BEDTIME PRN 02/01 1330 AC PO Methadone HCl 40 MG ONCE ONE 02/08 800 AC PO 02/07 801 Methadone HCl 45 MG ONCE ONE 02/07 800 AC PO 02/06 801 Methadone HCl 50 MG ONCE ONE 02/06 800 AC PO 02/05 801 Methadone HCl 5 MG .STK-MED ONE 02/04 835 DC PO 02/05 836 Methadone HCl 55 MG ONCE ONE 02/05 800 DC 02/04 PO 02/04 0801 0836 Multivitamins 1 TAB DAILY 02/02 0900 AC 02/03 PO 0843 Nicotine 2 MG Q2P PRN 02/01 1330 AC PO Trazodone HCl 150 MG AT BEDTIME 02/01 2100 AC 02/03 PO 2144 Vital Signs Date Time Temp Pulse Resp B/P B/P Pulse O2 O2 Flow FiO2 Mean Ox Delivery Rate 02/04 1538 70 121/57 02/04 1219 85 120/58 02/04 0739 97.8 78 101/59 02/03 1949 97.0 65 95/63 ASSESSMENT: Patient reports that she is doing well enough, however is not tolerating the methadone taper. She would like to be discharged soon, he would like to return to the methadone clinic. She said that she had not been taking the Lexapro because it did not help very much. We discussed the risks, benefits, side effects of taking Lexapro, and I strongly encouraged the patient to continue taking Lexapro, and anticipate that she would not have a strong response to this medication for up to a few weeks from now. Depression:7/10; Anxiety:7/10 (with 10 the worst.) Denies suicidal ideation, homicidal ideation, auditory hallucinations, visual hallucinations. She reported some paranoid ideation, thinking at times that people might be commenting on her appearance. Patient states and also believes that she will not kill herself. She reports sleeping poorly at night, sometimes only 4 hours, often tossing and turning during the night. Low appetite, energy and interest. Concentration is "so-so." Speech is well articulated, goal-directed, average in rate, volume and tone. The patient understands the risks/benefits/side effects of the medication and is agreeable to continue taking them. PLAN: 1. Patient encouraged to continue Lexapro for depression and anxiety. 2. Bentyl and baclofen as needed ordered for side effects of methadone taper. Continue with current management. Continue to provide support and encouragement.
[2018-02-04 20:07] VITALS: BP 112/61
[2018-02-05 07:34] VITALS: BP 120/62
[2018-02-05 12:23] VITALS: BP 110/59
--- NOTE | 2018-02-05 13:14 | CP SOUTH PROGRESS NOTE PSYCH ---
Psych (Inpt) Progress Note Progress Note Include the following elements, when applicable: Involvement in the active treatment of the patient with behavioral observations of the patient and the patient's response to the treatment. Review of the ongoing treatment process in the context of the treatment plan. Indication of how multi-disciplinary staff members are carrying out the treatment plan. Plans for future interventions and recommendations for revision of the treatment plan. Liaison with other physicians/providers. Progress Note: I discussed this patient's progress to date, current mental status, treatment process in the context of the treatment plan, and discharge planning with staff/ team in the daily morning inpatient team meeting. I also met with the patient myself in individual session. A total of 15 minutes was spent with the patient with more than 50% spent in counseling and/or coordination of care. SUBJECTIVE: "I should go to rehab SAMANTHA. If the smart thing to do. I am worried about where I am going to go, what I am going to do." OBJECTIVE: Current Medications Sig/Bonilla Start time Last Medication Dose Route Stop Time Status Admin Acetaminophen 650 MG Q6P PRN 02/01 1330 AC PO Al Hydroxide/Mg 30 ML Q4-6 PRN PRN 02/01 1330 AC Hydroxide PO Baclofen 10 MG Q6-PRN PRN 02/04 1700 AC PO Benztropine Mesylate 1 MG Q6P PRN 02/01 1330 AC PO Benztropine Mesylate 1 MG Q6P PRN 02/01 1330 AC IM Dicyclomine HCl 20 MG Q6-PRN PRN 02/04 1700 AC PO Escitalopram Oxalate 20 MG DAILY 02/02 09 AC 02/05 PO 0739 Gabapentin 600 MG TID 02/01 1400 AC 02/05 PO 0739 Haloperidol 5 MG Q6P PRN 02/01 1330 AC PO Haloperidol 5 MG Q6P PRN 02/01 1330 AC IM Lorazepam 2 MG Q6P PRN 02/01 1330 AC IM Magnesium Hydroxide 30 ML AT BEDTIME PRN 02/01 1330 AC PO Methadone HCl 40 MG ONCE ONE 02/08 800 AC PO 02/07 801 Methadone HCl 45 MG ONCE ONE 02/07 800 AC PO 02/06 801 Methadone HCl 50 MG ONCE ONE 02/06 800 DC 02/05 PO 02/05 801 0741 Multivitamins 1 TAB DAILY 02/02 0900 AC 02/05 PO 0739 Nicotine 2 MG Q2P PRN 02/01 1330 AC PO Trazodone HCl 150 MG AT BEDTIME 02/01 2100 AC 02/04 PO 2202 Vital Signs Date Time Temp Pulse Resp B/P B/P Pulse O2 O2 Flow FiO2 Mean Ox Delivery Rate 02/05 1223 69 110/59 02/05 0734 97.9 80 120/62 02/04 2007 96.9 73 112/61 02/04 1538 70 121/57 Lab Cholesterol 206 MG/DL H 02/02/18 0500 Cholesterol/HDL Ratio 6 % H 02/02/18 0500 Creatinine 1.1 mg/dL H 02/01/18 0038 Estimated GFR 51 ml/min L 02/01/18 0038 HDL Cholesterol 36 mg/dL L 02/02/18 0500 Hemoglobin A1c 6.4 % H 12/26/17 0605 LDL Cholesterol Direct 99.58 mg/dL 02/02/18 0500 Triglycerides 419 mg/dL H 02/02/18 0500 ASSESSMENT: Patient presents today as calm, cooperative and pleasant. Reports improving depression and anxiety, states "I am thinking better." States she will follow- up for borderline diabetes and cholesterol with primary care at [facility]. We reviewed the results of daily fingersticks during her stay here. States she did not tolerate metformin, discontinued use. States she is tolerating other medications well, to good effect. Depression:5/10; Anxiety:5/10 (with 10 the worst.) Denies suicidal ideation, homicidal ideation, auditory hallucinations, visual hallucinations, paranoid ideation. Patient states and also believes that she will not kill herself. Reports her sleep is improved with trazodone, 4-5 hours which she says is good for her.(Patient slept well last night as per overnight sleep report.) She reports her energy and interest levels are low, however she is attending groups here on the unit. Reports that her appetite is low. Her concentration is good. Speech is well articulated, goal-directed, average in rate, volume and tone. The patient understands the risks/benefits/side effects of the medication and is agreeable to continue taking them. PLAN: 1. Anticipate discharge soon, if not later this afternoon. Continue with current management as patient is improving. Continue to provide support and encouragement.
[2018-02-05] MEDS ORDERED: LEXAPRO10 M1 PO (15:38)
[2018-02-05] MEDS ORDERED: TRAZODONE HCL50 M1 PO (15:38)
[2018-02-05] MEDS ORDERED: GABAPENTIN300 M2 PO (15:38)
[2018-02-05 15:43] VITALS: BP 111/67
[2018-02-05] MEDS ORDERED: NICORELIEF2 MG PO (15:48)
--- NOTE | 2018-02-05 15:48 | Patient Discharge Instructions ---
Psych Discharge Inst General Discharge Information Reason for Admission: Patient admitted voluntarily for report of depression and suicidal ideation with a plan to throw herself in front of a train. Psy Discharge Primary Diag+ Unspecified depressive disorder. Psy Discharge Secondary Diag+ Opioid use disorder. Summary Tests/Major Procedures Lab AST 71 U/L H 02/01/18 0038 Cholesterol 206 MG/DL H 02/02/18 0500 Cholesterol/HDL Ratio 6 % H 02/02/18 0500 Creatinine 1.1 mg/dL H 02/01/18 0038 Estimated GFR 51 ml/min L 02/01/18 0038 Glucose 113 mg/dL H 02/01/18 0038 HDL Cholesterol 36 mg/dL L 02/02/18 0500 LDL Cholesterol Direct 99.58 mg/dL 02/02/18 0500 Triglycerides 419 mg/dL H 02/02/18 0500 Methadone Screen > 735 NG/ML H 01/31/18 2345 Urine Opiates Screen > 4000.00 NG/ML H 01/31/18 2345 Lab Hemoglobin A1c 6.4 % H 12/26/17 0605 Studies Pending at DC: None Patient Instructions Contact Information Your Psychiatrist on [facility] was Kenney Jacobsen MD * If you are experiencing an emergency related to this hospitalization, please call [phone] to contact the treating psychiatrist or the psychiatrist-on- call. * To Request a copy of your medical records, please contact the Medical Records Department at [phone]. * To request results of studies pending at the time of discharge, please call [phone]. * Continue your Medications until directed to stop by your Healthcare provider. General Medication Information Please continue to take your new medications and your continued home medications , unless otherwise indicated on your discharge medication list, or unless directed by your MD or HEALTH COMMUNICATIONS SPECIALIST to stop them. Special Instructions Diet Regular Activity Normal Other Inst/Recommendations Follow up with Primary Care for cholesterol and borderline diabetes. - Tobacco Use Treatment Offered Post DC Medications Offered: Script Given-See Med List Post DC Tobacco Treatment Plan: [facility] Program Appt Date: 02/13/18 Program Appt Time: 1600 - EtOH/Drug Use D/O Treatment Offered Post DC Medications Offered: Ref Med EtOH/Drug Use D/O Post DC EtOH/SubAbuse TX Plan: Other SubAbuse/Dual Pgm ([facility]) Program Appt Date: 02/06/18 Program Appt Time: 0800 Metabolic Screening ([x]) Not Applicable, patient not on a neuroleptic. OR () Patient on a neuroleptic(s) . Enter below results for Hemoglobin A1C, and lipid panel if obtained during the last 365 days. BMI: 25.600 Blood Pressure: 111/67 Laboratory Results From [facility] (If applicable): Advance Directives Does the Patient have Medical Advance Directives No/Per pt req info given Does Pt have Psychiatric Advance Directives? No/Refused further info Does Patient have a Designated Surrogate Decision Maker: No Information About Psychiatric Advance Directives Provided? Refused Discharge Plan Post Hospital Treatment Plan: Follow up at [facility] for IOP, medication management, and primary care.
--- NOTE | 2018-02-05 15:49 | DISCHARGE SUMMARY REPORT-PSYCH ---
Visit Information Visit Dates/Diagnosis' Admission Date: 02/01/18 Discharge Date: 02/05/18 Reason for Admission: Patient admitted voluntarily for report of depression and suicidal ideation with a plan to throw herself in front of a train. Psy Discharge Primary Diag: Unspecified depressive disorder. Psy Discharge Secondary Diag: Opioid use disorder. Hospital Course Significant Lab Findings: Lab ALT 37 U/L 02/01/18 0038 AST 71 U/L H 02/01/18 0038 Creatinine 1.1 mg/dL H 02/01/18 0038 Estimated GFR 51 ml/min L 02/01/18 0038 Course Complications: Metformin was discontinued after patient complained of abdominal discomfort. Patient was seen by medicine following a fall, with lacerations on both knees. Consultations: Patient was seen for admission history and physical by Dr. Lucia. Please see his H&P for additional information. Patient was seen by Dr. Chang for abdominal pain, metformin was discontinued. Please refer to his note for additional information. Patient was seen by Yanick Naqvi MD for attending physician review. Please see the physician's note for additional information. Patient was seen by Dr. Rodriguez for evaluation of bilateral knee lacerations following a fall. Please see the note for additional information. Allergies: Coded Allergies: Penicillins (SWELLING 12/23/17) Hospital Course/TX Response: Patient was monitored on the unit for safety, depression, anxiety and suicidal ideation with some thoughts about "running into traffic." She participated in multimodal treatments on the unit. She was placed on a methadone taper to decrease her methadone dose. She was medicated with Lexapro for depression and anxiety, trazodone at bedtime for sleep, gabapentin 600 mg 3 times daily for anxiety. Today, the day of discharge, she states "I should go to rehab SAMANTHA. If the smart thing to do. I am worried about where I am going to go, what I am going to do." Patient presents today as calm, cooperative and pleasant. Reports improving depression and anxiety, states "I am thinking better." States she will follow- up for borderline diabetes and cholesterol with primary care at [facility]. We reviewed the results of daily fingersticks during her stay here. States she did not tolerate metformin, discontinued use. States she is tolerating other medications well, to good effect. Depression:5/10; Anxiety:5/10 (with 10 the worst.) Denies suicidal ideation, homicidal ideation, auditory hallucinations, visual hallucinations, paranoid ideation. Patient states and also believes that she will not kill herself. Reports her sleep is improved with trazodone, 4-5 hours which she says is good for her.(Patient slept well last night as per overnight sleep report.) She reports her energy and interest levels are low, however she is attending groups here on the unit. Reports that her appetite is low. Her concentration is good. Speech is well articulated, goal-directed, average in rate, volume and tone. The patient understands the risks/benefits/side effects of the medication and is agreeable to continue taking them. Patient reports tolerating her medications well, without complaint. States she feels safe and ready for discharge. Discharge HBIPS - Tobacco Use Treatment Offered Post DC Medications Offered: Script Given-See Med List Post DC Tobacco Treatment Plan: [facility] Tx [facility]gm Program Appt Date: 02/13/18 Program Appt Time: 1600 - EtOH/Drug Use D/O Treatment Offered Post DC Medications Offered: Ref Med EtOH/Drug Use D/O Post DC EtOH/SubAbuse TX Plan: Other SubAbuse/Dual Pgm Program Appt Date: 02/06/18 Program Appt Time: 0800 Metabolic Screening - Screen if on a Neuroleptic Medication - Metabolic screening should include: - Blood Pressure, BMI, Glucose or Hgb A1c, & a - Lipid profile from within the past 365 days. Metabolic Screening ([x]) Not Applicable, patient not on a neuroleptic. OR () Patient on a neuroleptic(s) . Enter below results for Hemoglobin A1C, and lipid panel if obtained during the last 365 days. BMI: 25.600 Blood Pressure: 111/67 Laboratory Results From [facility] EHR (If applicable): Discharge Instructions General Discharge Information Multiple Neuroleptics: ([x]) Not Applicable OR Document below three failed attempts at monotherapy, or a plan to taper to monotherapy, or augmentation of Clozapine. () Discharge Diet Regular Discharge Activity Normal DC Disposition: Patient left the hospital today accompanied by her boyfriend. She will be staying at a friend's house, and attending the [facility] for medication management, [facility], and primary care. She is on the waiting list at residential rehab's and will follow-up there. Referrals Ordered Referrals Provider Referral 02/06/18 For Groups: [[facility]] [facility] [address] [place] [address] Walk in Hours: week of 02/04/18: Sunday-Sunday 5:30pm-3pm week of 02/11/18: Sunday-Sunday 5am-2pm Patient will utilize walk in hours on 02/06/18. She will ask to speak with a clinician about engaging in IOP and resuming medication management. Provider Referral 02/13/18 For Providers: [[facility]] For Groups: [[facility]] [facility] [address] [phone] Groups meet every other Sunday at 4pm Next group meets on 02/13/18, at 4pm Provider Referral For Groups: [Resources] Resources: [place]: [phone] [facility]: [phone] [facility]: [phone] Crisis and Respite - [place]: [phone] - [place]: [phone] Prescriptions Continue taking these medications: Methadone Hydrochloride (Methadone HCl) 10 MG TABLET 70 Milligram ORAL DAILY Qty = 1 Comments: Last Taken: 50 MG ADMINISTERED 02/05/18 Time:0741 Start taking the following new medications: Gabapentin (Gabapentin) 300 MG CAPSULE 600 Milligram ORAL THREE TIMES DAILY Qty = 42 No Refills Comments: Last Taken:02/05/18 Time:1305 Escitalopram Oxalate (Lexapro) 10 MG TABLET 20 Milligram ORAL DAILY Qty = 14 No Refills Comments: Last Taken:02/05/18 Time:0739 Trazodone HCl (Trazodone HCl) 50 MG TABLET 150 Milligram ORAL AT BEDTIME Qty = 14 No Refills Comments: Last Taken:02/04/18 Time:2202 Nicotine (Nicorelief) 2 MG GUM 2 Milligram ORAL EVERY 2 HOURS NEEDED as needed for nicotine craving Qty = 30 No Refills Other Inst/Recommendations Follow up with Primary Care for cholesterol and borderline diabetes. Studies Pending at Discharge None Copies To: *
--- NOTE | 2018-02-05 16:02 | SOCIAL WORKER PROG NOTE PSYCH ---
Social Work Progress Note Progress Note Made appointment with SARA to take her to [address] [place] [address]. There contact is [phone] confirm #[id number]
--- NOTE | 2018-02-05 18:02 | SOCIAL WORKER PROG NOTE PSYCH ---
Social Work Progress Note Progress Note This senior copywriter briefly attended the meeting this morning (prior to team meeting) with Adolfo and the patient to discuss discharge plans and rehab referrals. Patient was agreeable to pursuing rehab. This senior copywriter left a vm for [facility] at 9am this morning (no return call was received). Patient was agreeable to a referral to [facility] in [place] ([phone]) and will utilize the walk in hours at [facility]. This senior copywriter and Adolfo met with patient to discuss discharging today. Patient was agreeable to this plan and stated that she would go to a friends house in [place]. If this is not a possiblity, patient stated that she has funds to pay for a hotel room. She will continue to call inpatient programs as well as 211 for a CAN assessment. She requested that a referral is made to both Crisis and Respite locations ([place] and [place]). This senior copywriter called [place] and was informed by their voicemail that they do not have beds; this senior copywriter was unable to speak with anyone. [facility] was called and this senior copywriter spoke with Ana who stated that no beds are available, but a referral can be submitted. Donell Burr LCSW from [facility] submitted referrals to both Crisis and Respite locations as well as [facility]. Patient was provided with these phone numbers as well as [facility] and [facility]. She refused a referral to [facility] due to previous negative experience. This senior copywriter spoke with Luzmaria at [facility] who stated that the patient may present tomorrow at the [facility] between 5:30a and 3pm. These walk in hours as well as hours for this week and next week were listed in the patient's discharge paperwork. Luzmaria stated that when the patient presents she may speak with a clinician about ongoing medication management and engaging in IOP. This senior copywriter was transferred to Day's (broiler supervisor at [facility]) to inform of the patient's d/c today, plans to resume at [facility] and plans to enter inpatient/rehab. Patient was informed of the information from [facility]. She also signed a CCT. She denied SI/HI/AH/VH and identified a safety plan to utilize crisis numbers and warm lines (provided upon discharge) and/or go to the nearest ED. Patient's boyfriend arrived and the discharge plans were reviewed with him. He will accompany her to her friend in [place] and assist with obtaining a hotel room if needed. Patient cannot stay with him at this time. Patient stated that she will be obtaining a cell phone tomorrow and will call this senior copywriter with the new number; patient was provided with this senior copywriter's number. Faxed Referral(s) Referred To: [facility] Transition of Care Documents sent: Health Summary, Medication record (1 page re Methadone dose) Faxed to: [facility] Fax #: [phone] Faxed by: Abigail Whaley LCSW Date faxed: 02/05/18 Time Faxed: [phone]
--- NOTE | 2018-02-06 18:02 | SOCIAL WORKER PROG NOTE PSYCH ---
Social Work Progress Note Progress Note Determination Status: DISCHARGE COMPLETED Thank you. You have completed your discharge for this episode of care. Member Name Member ID Member Subscriber Name Subscriber ID GEE LIM [id number] GEE LIM [id number] Related Authorization # Related Client Authorization # Discharge # Discharge Date [id number] 02/05/2018 Level of Service Type of Service Level Of Care Type of Care IP - INPATIENT/HLOC P - MENTAL HEALTH I - INPATIENT CIP - INPATIENT HOSPITAL - INPATIENT HOSPITAL Provider Name & Address Provider ID Provider Alternate ID IWL SHARONDA [id number] [address] [place] [phone]
== END 2018-02-05 17:30 | DRG 881 ==
LOC: ERH 22:41 → CP SOUTH 02-01 13:22 → ERHI 02-01 13:22 → ENTRNSPT 02-01 19:55 → EDTRNSPT 02-01 19:59 → EDTRNSPTSTS 02-01 20:03 → CP SOUTH 02-01 20:07 → CMPTRNSPT 02-01 20:14 → CP SOUTH 02-05 17:30
PROVIDERS: Emergency Medicine; Psychiatry & Neurology Psychiatry
DX: F32.9 Major depressive disorder, single episode, unspecified (principal); F11.90 Opioid use, unspecified, uncomplicated
CPT/HCPCS: 36415; 80307; 81025; 93005; 93010; G0480

== ENCOUNTER 2018-03-03 16:06 | Inpatient (IN) | payer OTHER, MEDICARE ==
[~2018-03-03] VITALS: Ht 162.6 cm; Wt 67.1 kg
[~2018-03-03 16:06] MED LIST changes: +NICORELIEF2 MG PO; +TRAZODONE HCL50 M1 PO
[2018-03-03 16:43] LABS: ABSOLUTE BASOPHIL COUNT 0.1 /CUMM (0.0-0.2); ABSOLUTE EOSINOPHIL COUNT 0.2 /CUMM (0.0-0.7); ABSOLUTE GRANULOCYTE CT 10.1 /CUMM (1.4-6.5); ABSOLUTE LYMPH COUNT 2.8 /CUMM (1.2-3.4); ABSOLUTE MONOCYTE COUNT 0.6 /CUMM (0.10-0.60); BASOPHIL % 0.4 % (0.0-2.0); EOSINOPHIL % 1.7 % (0-5); GRANULOCYTE % 73.3 % (42.2-75.2); HEMATOCRIT 45.1 % (37-47); MEAN CORPUSCULAR HGB 29.5 PG (27.0-31.0); MEAN CORPUSCULAR HGB CONC 33.5 G/DL (33.0-37.0); MEAN PLATELET VOLUME 7.7 FL (7.4-10.4); PLATELET COUNT 296 /CUMM (130-400); RBC DISTRIBUTION WIDTH 14.1 % (11.5-14.5); RED BLOOD CELL CT 5.12 /CUMM (4.20-5.40); WHITE BLOOD CELL COUNT 13.8 /CUMM (4.8-10.8)
--- NOTE | 2018-03-03 16:50 | ED PSYCHIATRIC COMPLAINT ---
History of Present Illness General Chief Complaint: ETOH/Drug Related Complaint Stated Complaint: BIBA FOR +SI Source: patient, old records, EMS, Epic Exam Limitations: no limitations Vital Signs & Intake/Output Vital Signs & Intake/Output Vital Signs Date Time Temp Pulse Resp B/P B/P Pulse O2 O2 Flow FiO2 Mean Ox Delivery Rate 03/04 1029 98.0 105 18 112/63 95 Room Air 06/04 0459 97.9 86 18 110/52 06/04 0441 97.7 86 18 110/52 91 Room Air 06/04 0229 69 18 102/63 06/04 0205 69 18 102/63 94 Room Air 06/03 2230 98.6 92 18 104/67 06/03 2230 98.6 92 20 104/67 94 Room Air Room Air /03 2037 97.5 88 18 102/58 97 Room Air Room Air /03 1843 97.9 96 18 101/63 06/03 1838 97.9 96 18 101/63 96 Room Air /03 1619 97.8 90 18 102/56 98 Room Air Allergies Coded Allergies: Penicillins (SWELLING 12/23/17) Reconcile Medications Escitalopram Oxalate (Lexapro) 10 MG TABLET 20 MG PO DAILY DEPRESSION Gabapentin 300 MG CAPSULE 600 MG PO TID ANXIETY Methadone Hydrochloride (Methadone HCl) 10 MG TABLET 70 MG PO DAILY@0800 maintenance Nicotine (Nicorelief) 2 MG GUM 2 MG PO Q2P PRN nicotine craving Trazodone HCl 50 MG TABLET 150 MG PO AT BEDTIME SLEEP Triage Nurses Notes Reviewed? yes Onset: Just prior to arrival Duration: constant, continues in ED Timing: recent history Severity: severe Associated Symptoms: anxiety, insomnia, suicidal ideation LMP (ages 10-50): post menopausal : No Patient currently breastfeeds: No HPI: The patient is homeless. Prior to admission the patient called EMS because she was depressed and suicidal without a plan. She claims to be withdrawing from Xanax. She denies fever chills nausea vomiting diarrhea abdominal pain chest pain shortness of breath headache dysuria rash bleeding homicidal ideation hallucination. (Sharad KEATING,Roscoe) Past History Travel History Traveled to [place] past 21 day No Medical History Any Pertinent Medical History? see below for history Neurological: NONE EENT: NONE Cardiovascular: NONE Respiratory: NONE Gastrointestinal: NONE Hepatic: NONE Renal: NONE Musculoskeletal: NONE Psychiatric: anxiety, bipolar disease, depression, opioid dependence, substance abuse Endocrine: diabetes, BORDERLINE? 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 Yes (Roscoe Orourke MD) Review of Systems Review of Systems Constitutional: Reports: no symptoms. EENTM: Reports: no symptoms. Respiratory: Reports: no symptoms. Cardiovascular: Reports: no symptoms. GI: Reports: no symptoms. Genitourinary: Reports: no symptoms. Musculoskeletal: Reports: no symptoms. Skin: Reports: no symptoms. Neurological/Psychological: Reports: see HPI, anxiety, confusion, depressed. Hematologic/Endocrine: Reports: no symptoms. Immunologic/Allergic: Reports: no symptoms. All Other Systems: Reviewed and Negative (Roscoe Orourke MD) Physical Exam Physical Exam General Appearance: well developed/nourished, alert, awake, anxious, moderate distress Head: atraumatic, normal appearance Eyes: Bilateral: PERRL, EOMI. 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 yes 1 Depression/Hopelessness? yes 2 Previous Attempts/Psych Care yes 1 Excessive Ethanol/Drug Use? yes 1 Rational Thinking Loss? yes 2 Single//? yes 1 Social Support? has no support 1 Stated Future Intent? yes 2 Total 11 SAD PERSONS Done? yes (Roscoe Orourke MD) Progress Differential Diagnosis: drug intoxication, drug overdose, drug withdrawal, electrolyte abnormality, hypoglycemia Plan of Care: Orders Procedure Date/time Status Regular Diet 03/04 B Active Admit to inpatient psych 03/04 1211 Active Continuous Observation Monitor 03/03 1626 Active CIWA 03/03 1626 Active URINE DRUG SCREEN FOR ER ONLY 03/03 1626 Complete ACETOMINOPHEN 03/03 1626 Complete SALICYLATE 03/03 1626 Complete ETHANOL 03/03 162 Complete COMPREHENSIVE METABOLIC PANEL 03/03 162 Complete CBC WITHOUT DIFFERENTIAL 03/03 162 Complete ED CRISIS PSYCH CONSULT 03/03 1626 Active Current Medications Sig/Bonilla Start time Last Medication Dose Stop Time Status Admin Escitalopram Oxalate 20 MG DAILY 03/04 0900 UNVr 03/04 (Lexapro) 1015 Gabapentin 600 MG TID 03/03 2100 UNVr 03/04 (Neurontin) 1015 Trazodone HCl 150 MG AT BEDTIME 03/03 2100 UNVr (Desyrel) Laboratory Tests 03/03/18 1645: Urine Opiates Screen < 100, Methadone Screen > 735 H, Barbiturate Screen < 60, Ur Phencyclidine Scrn < 6.00, Amphetamines Screen 1382 H, U Benzodiazepines Scrn > 800 H, Urine Cocaine Screen > 1000 H, Urine Cannabis Screen 78.80 H 03/03/18 1637: Anion Gap 16, Estimated GFR 51 L, BUN/Creatinine Ratio 8.2, Glucose 102 H, Calcium 9.1, Total Bilirubin 0.5, AST 80 H, ALT 42, Alkaline Phosphatase 92, Total Protein 7.8, Albumin 4.2, Globulin 3.6, Albumin/Globulin Ratio 1.2, CBC w Diff NO MAN DIFF REQ, RBC 5.12, MCV 88.0, MCH 29.5, MCHC 33.5, RDW 14.1, MPV 7.7 , Gran % 73.3, Lymphocytes % 20.2 L, Monocytes % 4.4, Eosinophils % 1.7, Basophils % 0.4, Absolute Granulocytes 10.1 H, Absolute Lymphocytes 2.8, Absolute Monocytes 0.6, Absolute Eosinophils 0.2, Absolute Basophils 0.1, Salicylates < 1.0, Acetaminophen < 10.0 L, Serum Alcohol 83.0 Hand-Off Endorsed To: Ludivina KEATING,Kenney Felix Endorsed Time: 190 Pending: consult Comments: Patient threatened staff with violence. Chemical sedation ordered for patient and staff safety. (Roscoe Orourke MD) Hand-Off Endorsed To: Terrance Gordon DO Endorsed Time: 0700 Pending: consult (Ludivina KEATING,Kenney Felix) Comments: Dr. Gordon reassessment addendum at 1212 hrs. on 03/04/2018. I assumed care from Dr. Florence at the time of shift change while awaiting crisis assessment. Earlier this morning the patient requested from her nurse her dosage of methadone and was extremely argumentative, verbally abusive, and violent. She was redirected and the nurse confirmed with her methadone clinic that her dosage is 60 mg. I prescribed this dosage in order to avoid further escalation. Crisis evaluated her and gave her in need of hospitalization to the inpatient psych service. Admitted in medically stable condition. (Terrance Gordon DO) Departure Departure Disposition: STILL A PATIENT Condition: Stable Clinical Impression Primary Impression: Depression with suicidal ideation Secondary Impressions: Alcohol intoxication delirium, Benzodiazepine abuse, Cocaine abuse, Malingering, Marijuana abuse, Methadone maintenance therapy patient Referrals: Patient Has No Primary Care Dr (PCP/Family) Departure Forms: Customer Survey General Discharge Information (Sharad KEATING,Roscoe)
[2018-03-03 18:43] VITALS: BP 101/63
[2018-03-03 22:30] VITALS: BP 104/67
[2018-03-04] VITALS (10 sets, daily range): BP systolic 91–119; BP diastolic 52–77
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
--- NOTE | 2018-03-04 17:47 | PN- Att Addend ---
Attending Addendum Attending Brief Note Brief Medical Admission Note S: The patient presented in ED for readmission (was here for 3 recent admissions for for depression and SI) after calling EMS saying that she was depressed and suicidal. She stated that she had been withdrawing from Xanax. At the time of my exam she was sedate, however responded appropriately to questions. O: VS: Vital Signs Date Time Temp Pulse Resp B/P B/P Pulse O2 O2 Flow FiO2 Mean Ox Delivery Rate 03/04 2125 81 107/57 /1953 99.0 85 100/64 / 1947 99.0 85 100/64 / 1609 85 91/59 / 1605 85 91/59 / 1422 97.6 92 119/76 06/ 1248 96 16 108/77 / 1247 97.9 96 16 108/77 96 Room Air / 1029 98.0 105 18 112/63 95 Room Air 06/04 0459 97.9 86 18 110/52 06/04 0441 97.7 86 18 110/52 91 Room Air 06/04 0229 69 18 102/63 06/04 0205 69 18 102/63 94 Room Air 06/03 2230 98.6 92 18 104/67 06/03 2230 98.6 92 20 104/67 94 Room Air Room Air Intake & Output 03/04 1600 / 0800 03/04 0000 Intake Total Output Total Balance Patient 148 lb Weight Current Medications Sig/Bonilla Start time Last Medication Dose Route Stop Time Status Admin Escitalopram Oxalate 20 MG DAILY 03/04 0900 AC 03/04 PO 1015 Gabapentin 0 .STK-MED ONE 03/04 1412 DC PO Gabapentin 600 MG TID 03/03 2100 AC 03/04 PO 2120 Methadone HCl 0 .STK-MED ONE 03/04 1049 DC PO Methadone HCl 60 MG ONCE ONE 03/04 1045 DC 03/04 PO 03/04 1046 1048 Nicotine 2 MG Q2P PRN 03/04 1530 AC PO Trazodone HCl 150 MG AT BEDTIME 03/03 2100 AC 03/04 PO 2120 Physical Exam: HEENT: eyes- PERRLA, EOMI sierra- dry mucosa Neck: supple, no adenopathy Chest: clear Cor: RRR nl S1, S2 w/o murm Abd: BS+, soft, NT, - HSM Ext: no edema, pulses 2+ Neuro: alert & oriented, non-focal exam CN 2-12 intact Labs: Laboratory Tests 03/03/18 1645: Urine Opiates Screen < 100, Methadone Screen > 735 H, Barbiturate Screen < 60, Ur Phencyclidine Scrn < 6.00, Amphetamines Screen 1382 H, U Benzodiazepines Scrn > 800 H, Urine Cocaine Screen > 1000 H, Urine Cannabis Screen 78.80 H 03/03/18 1637: Anion Gap 16, Estimated GFR 51 L, BUN/Creatinine Ratio 8.2, Glucose 102 H, Calcium 9.1, Total Bilirubin 0.5, AST 80 H, ALT 42, Alkaline Phosphatase 92, Total Protein 7.8, Albumin 4.2, Globulin 3.6, Albumin/Globulin Ratio 1.2, CBC w Diff NO MAN DIFF REQ, RBC 5.12, MCV 88.0, MCH 29.5, MCHC 33.5, RDW 14.1, MPV 7.7 , Gran % 73.3, Lymphocytes % 20.2 L, Monocytes % 4.4, Eosinophils % 1.7, Basophils % 0.4, Absolute Granulocytes 10.1 H, Absolute Lymphocytes 2.8, Absolute Monocytes 0.6, Absolute Eosinophils 0.2, Absolute Basophils 0.1, Salicylates < 1.0, Acetaminophen < 10.0 L, Serum Alcohol 83.0 Impression/Plan: #Depression with Suicidal Ideation/Bipolar Disease- recurrent with multiple recent [facility] admission for the same. Plan: Admit to [facility]. Care as per psychiatry lila. #H/O Opioid/?Benzo (Xanax) Dependence, Nicotine Dependence- given dose of Methadone this morning. Plan: As per psychiatry. #H/O Borderline Type II Diabetes- has not required Rx. Plan: OP follow-up.
[2018-03-05] VITALS (11 sets, daily range): BP systolic 99–115; BP diastolic 55–73
--- NOTE | 2018-03-05 12:50 | CPS PROVIDER INIT ASMT PSYCH ---
Psychiatric Admission Limousine Rental Clerk's Note Reviewed: Yes Patient Seen and Examined: Yes Identifying Information: 57 yo female bibdebbie to [facility] last evening on a [place] PD PEER documenting SI. Chief Complaint: I'm depressed. I just want to . Reaction to Hospitalization: The patient was admitted voluntarily History of Present Illness Onset of Illness: Pt friend called 911 with concerns that pt was making statements that she no longer wanted to live and was dodging in and out of traffic. Pt has had 3 recent admissions to [facility] since November 2017 for depression and SI. Pt has a hx of suicide attempts but poor adherence to aftercare recommendations. Pt was most recently discharged from [facility] on February 05. Pt reports she continues receiving Methadone 70mg from [facility] but can't afford to pay for her other medications. Pt presented with positive tox screens for amphetamines, benzos, cocaine, methadone, cannabis and etoh. Pt has a long hx of benzo abuse and is currently receiving Methadone from [facility]. Pt admitted to a couple of drinks yesterday but reports she isn't a "serious drinker". Pt was insistant that she doesn't use amphetamines or cocaine. Pt states "I'm depressed. I just want to ". Pt reports she has been feeling like this for a while. Pt reports inability to get into a [place] [facility] rehab program due to her insurance and that she was told by her friend she can no longer live at the apartment as of Sunday. Pt presents as lethargic; disheveled; depressed and reports feeling hopeless and helpless. Circumstances Leading to Admission: See above Problem(s) Justifying Need for Admission: Thoughts of wanting to Past Psychiatric History Past Diagnosis(es)- if any: Unspecified depression. Opioid use d/o on methadone. Past Precipitating Factors- if any: Homelessness and relapse to drug use - Include inpatient and outpatient treatment Treatment History: This is her fourth inpatient psychiatric admission The patient is with [facility] for methadone maintenance program [facility] 12/2017 Per notes: The patient reported that she was in treatment in [place] with the same and 2 providers and was stable for 6 years before having to move to [place] 2 years ago reportedly to take care of her parents. History of Suicide Attempts or Gestures 2-3 previous suicide attempts with last suicide attempt as o/d in November 2017 Substance Abuse History: Opioid use disorder, currently on MMT through [facility] in [place] Per record, h/o of sedative/hypnotic use disorder Allergies: Coded Allergies: Penicillins (SWELLING 12/23/17) Home Med List: Methadone, gabapentin, Lexapro, trazodone - Include any medical condition(s) that may - impact the patient's recovery/remission Past History Medical History Neurological: NONE EENT: NONE Cardiovascular: NONE Respiratory: NONE Gastrointestinal: NONE Hepatic: NONE Renal: NONE Musculoskeletal: NONE Psychiatric: anxiety, bipolar disease, depression, opioid dependence, substance abuse Endocrine: diabetes, BORDERLINE? TYPE 2 Blood Disorders: NONE Cancer(s): NONE GANG BOSS/Reproductive: NONE History of MRSA: No History of VRE: No History of CDIFF: No Isolation History: Standard Surgical History Surgical History: , RHINOPLASTY Psychiatric Family/Social Hx Family History Psychiatric Illness: Mother: ?dx. Substance Use: I don't know." Suicides: Denied family history of suicide Social History Living Situation: Facing homelessness Significant Relationships (family/friends): . 04/15 from an [place]. Patient has a 36 yo daughter who lives in [place]. Father is in [place]. Mother is in [place]. Has 3 siblings. Education: High school graduate Vocation/Occupation: Unemployed/on disability Legal: Per notes: " Hx 1 arrest "for something stupid. I don't want to get into it." Healthly Behaviors Screening Tobacco Screening Tobacco Use from ED Docu: Current Daily Use Daily Tobacco Use Amount/Type: => 5 Cigarettes daily - If tobacco counseling indicated - the following topics are required. - #1 Recognizing dangerous situations. - #2 Coping Skills. - #3 Basic information about quitting. Status of Tobacco Cessation Counseling: #1, #2 AND #3 Completed Cessation Med Status Pt Refused Cessation Meds Alcohol Screening - ETOH screen POS if BAL >=80 or Audit-C>= M4/F3 Audit-C Score from Diag Assess: 5 Blood Alcohol Level: Laboratory Tests 03/03 1637 Toxicology Serum Alcohol (<10 MG/DL) 83.0 Alcohol Use Screening Results: Pos per Audit C &/or BAL - If ETOH counseling indicated - the following topics are required. - #1 Express concern about the patient's - drinking at unhealthy levels, include informing - of national norms for moderate drinking: - men <= 14 drinks/week, max 4 drinks/occasion - women <= 7 drinks/week, max 3 drinks/occasion - #2 Providing feedback, including linking alcohol to - negative physical effects (liver injury, hypertension) - negative emotional effects (relationship problems and - depression) - negative occupational consequences (reduced work - performance) - #3 Advising the patient to abstain from alcohol or - to drink below national norms for moderate drinking - (as listed above). Status of ETOH Use Counseling: #1, #2 AND #3 Completed. Metabolic Screening - Screen if on a Neuroleptic Medication - Metabolic screening should include: - Blood Pressure, BMI, Glucose or Hgb A1c, & a - Lipid profile from within the past 365 days. Metabolic Screening ([X]) Not Applicable, patient not on a neuroleptic. Exam and Plan Mental Status Examination Ambulation Status: The patient was sedated and slightly unsteady Appearance: Looked tired/sleep deprived Attitude towards examiner: She was calm and cooperative Psychomotor activity: Reduce psychomotor activity Behavior: No abnormal or bizarre behaviors. Quality of speech: Reduced speech. Affect: Blunted affect. Mood: Depressed mood. Suicidal Ideation: No suicidal ideation but has been voicing wishes of Homicidal Ideation: Denied violent thoughts or thoughts of homicide Hallucinations: Denied hallucinations Paranoid/Delusional Material: She denied feeling paranoid, there were no delusions during the interview Difficulties with thought organization: She was coherent, there was no thought disorder. Insight: She seems to have partial insight. Judgment: Judgment is impaired. Orientation: She was sedated but oriented to person and place Cognition: Some difficulties with attention and concentration probably because of sleep deprivation tiredness and sedation Memory Function: Minor deficits in short-term memory due to the above combination of factors Estimate of intellectual functioning: Average Assets/Strengths Patient Identified Assets/Strengths: The patient is resourceful, resilient, and likable Impression/Plan Impression and Plan: 57-year-old white female who returns to the inpatient psychiatric unit at [facility] because of wishing . There has been a relapse recently. She is facing homelessness. - Include all active medical diagnosis that require tx DSM 5 Diagnosis(es): Unspecified depressive disorder. Opioid use disorder. - Initial Tx Plan for Active Psych & Medical Conditions Treatment Plan: Inpatient psychiatric care Continue on methadone with a reduction by 5 mg for today Continue Lexapro 20 mg daily Continue trazodone 150 mg at bedtime Continue gabapentin 600 mg 3 times daily Add as needed Zofran as needed if there is any nausea or vomiting Reevaluate tomorrow. - Factors that would help patient function - in a less restrictive setting. Factors: The patient will be discharge once there is a safe discharge plan and once she is no longer wishing
--- NOTE | 2018-03-05 13:07 | Patient Discharge Instructions ---
Psych Discharge Inst General Discharge Information Reason for Admission: making statements that she no longer wanted to live Psy Discharge Primary Diag+ Unspecified Depressive Disorder Psy Discharge Secondary Diag+ Opioid Dependence Summary Tests/Major Procedures Lab Cholesterol 206 MG/DL H 02/02/18 0500 Cholesterol/HDL Ratio 6 % H 02/02/18 0500 HDL Cholesterol 36 mg/dL L 02/02/18 0500 Hemoglobin A1c 6.4 % H 12/26/17 0605 LDL Cholesterol Direct 99.58 mg/dL 02/02/18 0500 LDL Cholesterol, Calc ND mg/dL 02/02/18 0500 Triglycerides 419 mg/dL H 02/02/18 0500 Studies Pending at DC: none Patient Instructions Contact Information Your Psychiatrist on [facility] was Cesilia KEATING,Pernell * If you are experiencing an emergency related to this hospitalization, please call [phone] to contact the treating psychiatrist or the psychiatrist-on- call. * To Request a copy of your medical records, please contact the Medical Records Department at [phone]. * To request results of studies pending at the time of discharge, please call [phone]. * Continue your Medications until directed to stop by your Healthcare provider. General Medication Information Please continue to take your new medications and your continued home medications , unless otherwise indicated on your discharge medication list, or unless directed by your MD or CUTTER OUT to stop them. Special Instructions Diet Diabetic Activity Normal - Tobacco Use Treatment Offered Post DC Medications Offered: Script Given-See Med List Post DC Tobacco Treatment Plan: Other Tobacco Tx Pgm - EtOH/Drug Use D/O Treatment Offered Post DC Medications Offered: Script Given-See Med List Post DC EtOH/SubAbuse TX Plan: Other SubAbuse/Dual Pgm Metabolic Screening ([X]) Not Applicable, patient not on a neuroleptic. Advance Directives Does the Patient have Medical Advance Directives No/Per pt req info given Does Pt have Psychiatric Advance Directives? No/Refused further info Does Patient have a Designated Surrogate Decision Maker: No Information About Psychiatric Advance Directives Provided? Refused Discharge Plan Post Hospital Treatment Plan: [facility] in [place], [place]
--- NOTE | 2018-03-05 15:38 | SOCIAL WORKER PROG NOTE PSYCH ---
Social Work Progress Note Progress Note This telegraphic typewriter repairer met with patient. She provided short responses to questions asked and demonstrated limited eye contact. Patient expressed interest in discharging , but was unwilling to explain why, other than to state that she does not want to decrease her Methadone dose. She stated that she would continue with the [facility] for treatment and plans to return to living with a friend. She refused to allow this telegraphic typewriter repairer to contact her friend. Patient also refused a family meeting or meeting with a support person. Patient denied SI/HI/AH/VH. Patient was encouraged to speak with Dr. Lomas about her interest in discharging when they meet, as she stated that they had not yet met today. This telegraphic typewriter repairer spoke with Dr. Lomas about patient and her interest in discharging. He stated that the patient was no longer interested in discharging when they met.
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
[2018-03-06] VITALS (8 sets, daily range): BP systolic 108–119; BP diastolic 59–70
--- NOTE | 2018-03-06 15:22 | CP SOUTH PROGRESS NOTE PSYCH ---
Psych (Inpt) Progress Note Progress Note Vital Signs Date Time Temp Pulse B/P B/P Pulse O2 FiO2 03/06 1224 91 119/69 03/06 1216 91 119/64 03/06 0742 98.1 92 118/70 03/06 0740 98.1 92 118/70 03/05 2219 97.1 62 107/55 03/05 2022 98.0 89 112/59 Mental Status Examination The patient was a slightly tired/sedated this morning but not as bad as yesterday. The patient reported that she did not sleep that well last night. She was calm and cooperative. Reduce psychomotor activity. No abnormal or bizarre behaviors. Reduced speech. Blunted affect. Depressed mood. She reported some thoughts of suicide this morning. Denied violent thoughts or thoughts of homicide, denied hallucinations, she denied feeling paranoid, there were no delusions during the interview. She was coherent , there was no thought disorder. She seems to have partial insight. Judgment is impaired, she was sedated but oriented to person and place Some difficulties with attention and concentration probably because of sleep deprivation tiredness and sedation Minor deficits in short-term memory due to the above combination of factors Assessment: 57-year-old white female who returns to the inpatient psychiatric unit at [facility] because of wishing . There has been a relapse recently. She is facing homelessness. Diagnosis(es): Unspecified depressive disorder. Opioid use disorder. Treatment Plan Update: Monistat vaginal cream at bedtime 7 days Reduce methadone to 45 mg daily Continue Lexapro 20 mg daily Continue trazodone 150 mg at bedtime Continue gabapentin 600 mg 3 times daily Miconazole Nitrate 1 YINKA AT BEDTIME 03/06 2100 AC Nicotine 2 MG Q2P PRN 03/04 1530 AC 03/05
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
[2018-03-07] VITALS (8 sets, daily range): BP systolic 106–112; BP diastolic 56–70
--- NOTE | 2018-03-07 14:02 | CP SOUTH PROGRESS NOTE PSYCH ---
Psych (Inpt) Progress Note Progress Note Vital Signs Date Time Temp Pulse B/P B/P Pulse O2 O2 Flow FiO2 03/07 1231 84 106/62 03/07 1223 84 106/62 03/07 0740 98.2 96 112/63 03/07 0739 98.2 96 112/63 03/06 1957 97.1 78 108/59 03/06 1954 97.1 78 108/59 03/06 1630 80 114/69 Mental Status Examination The patient asked for testing for chlamydia and gonorrhea because she feels that she has more discharged today although she only had 1 dose of the Monistat last night. She seemed less tired and less sedated this morning. She reported that she slept better last night. She was calm and cooperative. Reduce psychomotor activity. No abnormal or bizarre behaviors. Reduced speech. Blunted affect, depressed mood. She reported some thoughts of suicide this morning. Denied violent thoughts or thoughts of homicide, denied hallucinations, denied feeling paranoid, there were no delusions during the interview. She was coherent, there was no thought disorder. She oriented to person and place. Some difficulties with attention and concentration probably because of tiredness and sedation. Minor deficits in short-term memory due to the above combination of factors Assessment: 57-year-old white female who returns to the inpatient psychiatric unit at [facility] because of wishing . There has been a relapse recently. She is facing homelessness. Diagnosis(es): Unspecified depressive disorder. Opioid use disorder. Treatment Plan Update: Continue Monistat vaginal cream Urine screen for Chlamydia & Gonnorhea Reduce methadone to 40 mg daily Continue Lexapro 20 mg daily Continue trazodone 150 mg at bedtime Continue gabapentin 600 mg 3 times daily Miconazole Nitrate 1 YINKA AT BEDTIME 03/06 2100 AC Nicotine 2 MG Q2P PRN 03/04 1530 AC 03/05 DICTATED BY: Pernell Lomas MD DATE/TIME DICTATED:03/06/18 / 1516
--- NOTE | 2018-03-07 16:36 | SOCIAL WORKER PROG NOTE PSYCH ---
Social Work Progress Note Progress Note This telegraphic typewriter repairer met with patient. She was informed that this telegraphic typewriter repairer spoke with [facility] and, if accepted, she would be able to go to their program from [facility], bypassing the walk in service. Per Cara at [facility], if a bed is not available immediately in their rehab program, the patient would stay in a sober living environment with IOP until a bed is available. Patient was agreeable to a referral. She reported improvement with sedation. She reported SI with no plan. She denied HI/AH/VH. She described her mood as "a little depressed and anxious." She identified the unknown as the trigger for her SI, and feels that if she is accepted to [facility] or another program, her SI would diminish. Patient stated "I'll go today if they [[facility]] accept me." Patient reports good sleep, however "not really good" appetite. Per Cara's request, demographics, medical note, social, crisis assessment, initial assessment and medication list were faxed to her at [facility] at [phone] at 10:48am today.
--- NOTE | 2018-03-07 20:51 | SOCIAL WORKER PROG NOTE PSYCH ---
Social Work Progress Note Progress Note GEE LIM [id number] 1960 GEE LIM [id number] Pended Authorization # Client Authorization # Type of Request [id number] CONCURRENT Date of Admission/ Start of Services Requested From Submission Date 03/04/2018 03/07/2018 03/07/2018
[2018-03-08] VITALS (8 sets, daily range): BP systolic 94–114; BP diastolic 58–71
--- NOTE | 2018-03-08 07:51 | CP SOUTH PROGRESS NOTE PSYCH ---
Psych (Inpt) Progress Note Progress Note Treatment team (VINCE, RN, OTR/L & Therapy staff, Psychiatrist) discussed the Pt. 's progress, treatment plan, and aftercare plans. Mental Status Examination The patient was not tired or sedated when I met with her 11:55 AM-12:15 PM She did not appear sedated and was oriented to time, person and place. Minor difficulties with attention and concentration (? may be chronic). She reported experiencing mild withdrawals from the lower Methadone dose She was calm and cooperative. No abnormal or bizarre behaviors. Blunted affect and depressed mood, but today she denied thoughts of suicide. Pt. denied violent thoughts or thoughts of homicide, denied hallucinations, denied feeling paranoid, there were no delusions during the interview. She was coherent/there was no thought disorder. She probably because of tiredness and sedation. No longer showing deficits in short-term memory (probably due to being more alert/less sedated) Assessment: Steve is a 57-year-old white female who returns to the inpatient psychiatric unit at [facility] because of wishing . The patient is showing gradual and slow improvement. Today (03/08/2018) was her first day without voicing suicide at all. Diagnoses: Unspecified depressive disorder. Opioid use disorder. Treatment Plan Update: Continue Monistat vaginal cream Continue methadone 40 mg daily Continue Lexapro 20 mg daily Continue trazodone 150 mg at bedtime Continue gabapentin 600 mg 3 times daily
--- NOTE | 2018-03-08 13:34 | SOCIAL WORKER PROG NOTE PSYCH ---
See Addendum Social Work Progress Note Progress Note This property underwriter met with patient. She described her mood as "better - but alot of anxiety." Patient attributes her anxiety to the decrease in Methadone. She denied SI/HI/AH/VH. She stated that she is nervous about the weekend and continuing with the Methadone taper. This property underwriter and patient identified ways to manage her anxiety. She stated that she has been coloring, attending groups and will watch movies with other patients this weekend. This property underwriter informed patient that a vm was left for Cara at [facility] this morning (10:41am) and is waiting for a reply.
[2018-03-09] VITALS (8 sets, daily range): BP systolic 103–117; BP diastolic 60–71
--- NOTE | 2018-03-09 11:59 | CP SOUTH PROGRESS NOTE PSYCH ---
Psych (Inpt) Progress Note Progress Note Include the following elements, when applicable: Involvement in the active treatment of the patient with behavioral observations of the patient and the patient's response to the treatment. Review of the ongoing treatment process in the context of the treatment plan. Indication of how multi-disciplinary staff members are carrying out the treatment plan. Plans for future interventions and recommendations for revision of the treatment plan. Liaison with other physicians/providers. Progress Note: Pt notes that feeling "so so." Wants to go to rehab but at the same time does not want methadone reduced too much. Denies SI or HI. Notes ongoing anxiety. Current Medications Sig/Bonilla Start time Last Medication Dose Route Stop Time Status Admin Acetaminophen 650 MG Q4P PRN 03/05 1230 AC PO Al Hydroxide/Mg 30 ML Q4-6 PRN PRN 03/05 1230 AC Hydroxide PO Escitalopram Oxalate 20 MG DAILY 03/04 0900 AC 03/09 PO 0810 Gabapentin 600 MG Q8P PRN 03/08 1215 AC 03/08 PO 1859 Gabapentin 600 MG TID 03/03 2100 AC 03/09 PO 0810 Magnesium Hydroxide 30 ML AT BEDTIME NEED.. 03/05 1230 AC PO Methadone HCl 35 MG 03/10 0800 AC PO Methadone HCl 40 MG 0803/08 0800 DC 03/09 PO 0810 Miconazole Nitrate 1 YINKA AT BEDTIME 03/06 2100 AC 03/08 VAG 2228 Nicotine 2 MG Q2P PRN 03/04 1530 AC 03/09 PO 0700 Ondansetron HCl 4 MG Q6P PRN 03/05 1245 AC PO Trazodone HCl 150 MG AT BEDTIME 03/03 2100 AC 03/08 PO 2227 Vital Signs Date Time Temp Pulse Resp B/P B/P Pulse O2 O2 Flow FiO2 Mean Ox Delivery Rate 03/09 0807 83 117/71 / 0735 97.4 83 117/71 / 1957 99.1 71 114/71 /08 1950 99.1 71 114/71 /08 1638 80 114/64 /08 1633 80 114/64 /08 1224 75 95/58 06/08 1217 75 95/58 MSE General appearance: good hygiene and grooming; Attitude: cooperative; Eye contact: appropriate; Movement: no psychomotor agitation or slowing; Speech: nl fluency, nl rate/rhythm, nl volume, nl prosody; Mood: "been better" Affect: still very irritable, flat, appropriate, constricted, non-labile, congruent; Thought process: linear and goal-directed; Thought content: denied SI or HI, no paranoid ideation; Perception: denied hallucinations- auditory, visual, does not appear to be responding to internal stimuli; I/J: limited A/P: Pt with depression, PSD who presented with SI now resolved. Search for rehab underway. -Continue current medication regimen except decreased 03/10 methadone by 5mg. -Encourage integration into the milieu
[2018-03-10 07:36] VITALS: BP 113/65
[2018-03-10 07:39] VITALS: BP 113/65
[2018-03-10 12:11] VITALS: BP 122/65
[2018-03-10 12:28] VITALS: BP 122/65
--- NOTE | 2018-03-10 12:35 | CP SOUTH PROGRESS NOTE PSYCH ---
Psych (Inpt) Progress Note Progress Note Include the following elements, when applicable: Involvement in the active treatment of the patient with behavioral observations of the patient and the patient's response to the treatment. Review of the ongoing treatment process in the context of the treatment plan. Indication of how multi-disciplinary staff members are carrying out the treatment plan. Plans for future interventions and recommendations for revision of the treatment plan. Liaison with other physicians/providers. Progress Note: Pt notes that she is well today. Expressed concern re: discharge planning. Denies SI or HI. ?UTI sx. Current Medications Sig/Bonilla Start time Last Medication Dose Route Stop Time Status Admin Acetaminophen 650 MG Q4P PRN 03/05 1230 AC PO Al Hydroxide/Mg 30 ML Q4-6 PRN PRN 03/05 1230 AC Hydroxide PO Escitalopram Oxalate 20 MG DAILY 03/04 0900 AC 03/10 PO 0839 Gabapentin 600 MG Q8P PRN 03/08 1215 AC 03/08 PO 1859 Gabapentin 600 MG TID 03/03 2100 AC 03/10 PO 0839 Magnesium Hydroxide 30 ML AT BEDTIME NEED.. 03/05 1230 AC PO Methadone HCl 35 MG 03/10 0800 AC 03/10 PO 0743 Miconazole Nitrate 1 YINKA AT BEDTIME 03/06 2100 AC 03/09 VAG 2100 Nicotine 2 MG Q2P PRN 03/04 1530 AC 03/09 PO 1825 Ondansetron HCl 4 MG Q6P PRN 03/05 1245 AC PO Trazodone HCl 150 MG AT BEDTIME 03/03 2100 AC 03/09 PO 2142 Vital Signs Date Time Temp Pulse Resp B/P B/P Pulse O2 O2 Flow FiO2 Mean Ox Delivery Rate 03/10 1228 59 122/65 03/10 1211 89 122/65 03/10 0739 98.0 96 113/65 03/10 0736 98.0 96 113/65 03/09 203 98.0 76 110/68 03/09 2027 98.0 76 110/68 03/09 1616 76 103/60 03/09 1611 76 103/60 MSE General appearance: good hygiene and grooming; Attitude: cooperative; Eye contact: appropriate; Movement: no psychomotor agitation or slowing; Speech: nl fluency, nl rate/rhythm, nl volume, nl prosody; Mood: "OK" Affect: still very irritable, flat, appropriate, constricted, non-labile, congruent; Thought process: linear and goal-directed; Thought content: denied SI or HI, no paranoid ideation; Perception: denied hallucinations- auditory, visual, does not appear to be responding to internal stimuli; I/J: limited A/P: Pt with depression, PSD who presented with SI now resolved. -Continue current medication regimen -Encourage integration into the milieu - UA and UCX ordered
[2018-03-10 15:29] VITALS: BP 104/74
[2018-03-10 20:03] VITALS: BP 119/64
[2018-03-11 07:29] VITALS: BP 112/70
--- NOTE | 2018-03-11 08:27 | CP SOUTH PROGRESS NOTE PSYCH ---
Psych (Inpt) Progress Note Progress Note I reviewed Dr. Ballard's notes for the weekend of March 09 and 2017. Treatment team (TELECOM ANALYST, RN, OTR/L & Therapy staff, Psychiatrist) discussed the Pt. 's progress, treatment plan, and aftercare plans. Laboratory Tests 03/10 Urinalysis LIGHT H Urine Color (YEL,AMB,STR) YEL Urine Clarity (CLEAR) HAZY H Urine pH (5.0 - 8.0) 6.0 Ur Specific [place] (1.001 - 1.035) 1.010 Urine Protein (NEG,<30 MG/DL) NEG Urine Ketones (NEG) NEG Urine Nitrite (NEG) NEG Urine Bilirubin (NEG) NEG Urine Urobilinogen (0.1 - 1.0 EU/dl) 0.2 Ur Leukocyte Esterase (NEG) SMALL H Ur Microscopic SEDIMENT EXAMINED Urine RBC (0 - 5 /HPF) RARE Urine WBC (0 - 2 /HPF) 3-5 H Ur Epithelial Cells (NONE,FEW) FEW Urine Bacteria (NEG/NONE) FEW H Urine Hemoglobin (NEG) NEG Urine Glucose (N MG/DL) NEG Vital Signs Date Time Temp Pulse B/P B/P Pulse O2 03/11 0729 98.2 88 112/70 03/10 2003 97.2 91 119/64 03/10 1529 80 104/74 Mental Status Examination Pt. was calm and cooperative. The patient showed constricted affect and reported irritable/depressed mood, but today she denied thoughts of suicide. She attributes her bad mood to the mild withdrawals from methadone reductions. the patient complained about mild withdrawal symptoms she was alert and oriented. She was not tired or sedated when I met with her Minor difficulties with attention and concentration (? may be chronic). Pt. denied violent thoughts or thoughts of homicide, denied hallucinations, denied feeling paranoid, there were no delusions during the interview. She was coherent /there was no thought disorder. No deficits in short-term memory (probably due to being more alert/less sedated) Assessment: Steve is a 57-year-old white female who returns to the inpatient psychiatric unit at [facility] because of wishing . Pt. is showing gradual and slow improvement. She has been free of thoughts of suicide since March 08, 2018. Diagnoses: Unspecified depressive disorder. Opioid use disorder. Treatment Plan Update: Continue Monistat vaginal cream Increase methadone to 40 mg daily Continue Lexapro 20 mg daily Continue trazodone 150 mg at bedtime Continue gabapentin 600 mg 3 times daily Acetaminophen 650 MG Q4P PRN 03/05 1230 Escitalopram Oxalate 20 MG DAILY 03/04 0900 PO Gabapentin 600 MG Q8P PRN 03/08 1215 PO Gabapentin 600 MG TID 03/03 2100 Hydroxyzine HCl 50 MG Q6P PRN 03/10 1430 PO Magnesium Hydroxide 30 ML AT BEDTIME NEED.. 03/05 1230 PO Methadone HCl 5 MG ONCE ONE 03/11 1215 VAG Nicotine 2 MG Q2P PRN 03/04 1530 PO Ondansetron HCl 4 MG Q6P PRN 03/05 1245 PO Trazodone HCl 150 MG AT BEDTIME 03/03 2100 PO
[2018-03-11 12:28] VITALS: BP 134/75
[2018-03-11 16:10] VITALS: BP 112/68
--- NOTE | 2018-03-11 16:30 | SOCIAL WORKER PROG NOTE PSYCH ---
Social Work Progress Note Progress Note [facility] concurrent auth entered: GEE LIM [id number] 1960 GEE LIM [id number] Pended Authorization # Client Authorization # Type of Request [id number] CONCURRENT Date of Admission/ Start of Services Requested From Submission Date 03/04/2018 03/11/2018 03/11/2018 Level of Service Type of Service Level of Care Type of Care INPATIENT/[facility] Mental Health Inpatient Inpatient [facility] - Inpatient Hospital
--- NOTE | 2018-03-11 18:05 | SOCIAL WORKER PROG NOTE PSYCH ---
Social Work Progress Note Progress Note This advertising writer met with patient. Patient reported "a little depressed" mood due to not feeling well from the decrease in Methadone dose. Nursing staff reported that patient had been presenting as irritable at times; she was cooperative and appropriate during our conversation. Patient was informed that this advertising writer received a call from [facility] that she was accepted by the program, however, female beds were not currently available. This advertising writer made multiple attempts to contact Cara at [facility] ([phone]), however the calls were not going through. This advertising writer was ultimately able to reach Cherrie Gordon (Cara's home management supervisor) after learning that Cara was out today. She confirmed that the patient has been accepted and will be able to stay at [facility] until a bed is available on the inpatient unit. Cherrie anticipates that [facility] will be able to accept the patient as early as tomorrow and no later than . She stated that this advertising writer will be contacted tomorrow morning about a more definite admission date. This called later in the afternoon in attempt to reach Cherrie to inquire about any arrangements that need to be made regarding patient's Methadone. A message was left with Romina (who had connected this advertising writer to Cherrie previously) requesting a call back from Cherrie.
[2018-03-11 20:02] VITALS: BP 129/69
[2018-03-12 07:47] VITALS: BP 141/69
--- NOTE | 2018-03-12 08:05 | CP SOUTH PROGRESS NOTE PSYCH ---
Psych (Inpt) Progress Note Progress Note Treatment team (VINCE, RN, OTR/L & Therapy staff, Psychiatrist) discussed the Pt. 's progress, treatment plan, and aftercare plans. Mental Status Examination: calm and cooperative, showed more affective expressions today, less depressed, denied thoughts of suicide, no withdrawal symptoms, she was alert and oriented, minor difficulties with attention and concentration, denied violent thoughts or thoughts of homicide, denied hallucinations, denied feeling paranoid, there were no delusions, coherent/there was no thought disorder. No deficits in short-term memory (probably due to being more alert/less sedated) Assessment: Steve Hopkins (: ) is a 57-year-old White female who returns to the inpatient psychiatric unit at [facility] because of wishing . Pt. is showing gradual and slow improvement. She has been free of thoughts of suicide since March 08, 2018. Diagnoses: Unspecified depressive disorder. Opioid use disorder. Treatment Plan Update: Continue Monistat vaginal cream Continue methadone 40 mg daily Continue Lexapro 20 mg daily Continue trazodone 150 mg at bedtime Continue gabapentin 600 mg 3 times daily Continue additional PRN Gabapentin 900 mg Q8 hours PRN (NTE: 2 doses PRN in 24 hours) Urine RBC (0 - 5 /HPF) RARE Urine WBC (0 - 2 /HPF) 3-5 H Ur Epithelial Cells (NONE,FEW) FEW Urine Bacteria (NEG/NONE) FEW H Urine Hemoglobin (NEG) NEG Urine Glucose (N MG/DL) NEG Vital Signs Date Time Temp Pulse B/P B/P Pulse O2 03/11 0729 98.2 88 112/70 03/10 2003 97.2 91 119/64 03/10 1529 80 104/74 Mental Status Examination Pt. was calm and cooperative. The patient showed constricted affect and reported irritable/depressed mood, but today she denied thoughts of suicide. She attributes her bad mood to the mild withdrawals from methadone reductions. the patient complained about mild withdrawal symptoms she was alert and oriented. She was not tired or sedated when I met with her Minor difficulties with attention and concentration (? may be chronic). Pt. denied violent thoughts or thoughts of homicide, denied hallucinations, denied feeling paranoid, there were no delusions during the interview. She was coherent /there was no thought disorder. No deficits in short-term memory (probably due to being more alert/less sedated) Assessment: Steve is a 57-year-old white female who returns to the inpatient psychiatric unit at [facility] because of wishing . Pt. is showing gradual and slow improvement. She has been free of thoughts of suicide since March 08, 2018. Diagnoses: Unspecified depressive disorder. Opioid use disorder. Treatment Plan Update: Continue Monistat vaginal cream Increase methadone to 40 mg daily Continue Lexapro 20 mg daily Continue trazodone 150 mg at bedtime Continue gabapentin 600 mg 3 times daily Acetaminophen 650 MG Q4P PRN 03/05 1230 Escitalopram Oxalate 20 MG DAILY 03/04 0900 PO Gabapentin 600 MG Q8P PRN 03/08 1215 PO Gabapentin 600 MG TID 03/03 2100 Hydroxyzine HCl 50 MG Q6P PRN 03/10 1430 PO Magnesium Hydroxide 30 ML AT BEDTIME NEED.. 03/05 1230 PO Methadone HCl 5 MG ONCE ONE 03/11 1215 VAG Nicotine 2 MG Q2P PRN 03/04 1530 PO Ondansetron HCl 4 MG Q6P PRN 03/05 1245 PO Trazodone HCl 150 MG AT BEDTIME 03/03 2100 PO
[2018-03-12 12:36] VITALS: BP 100/58
[2018-03-12 16:39] VITALS: BP 123/72
--- NOTE | 2018-03-12 18:26 | SOCIAL WORKER PROG NOTE PSYCH ---
Social Work Progress Note Progress Note This program writer spoke with Cara at [facility]. Cara confirmed that the patient has been accepted to their program and that the patient would stay at the [facility] until an inpatient/rehab bed is available. She stated that the patient would need to have her Methadone treatment transferred from [facility] to the [facility]. A voicemail was left for Day at the [facility] regarding this matter. This program writer also spoke with Baldo at the [facility] at request of the patient, however, he was not familiar with the process. This program writer spoke with Leigh Ann at the [facility] who stated that a LENNY would need to be signed by the patient for the [facility] and [facility]. She agreed to fax a list of records needed from and [facility]. This program writer met with patient. She was informed of the progress thus far regarding [facility], to include the need to transfer the Methadone treatment to [facility]. Patient was in agreement with this plan. While patient was frustrated with not being able to go to [facility] today, she reports being motivated to continue with this plan of going [facility].
[2018-03-12 19:34] VITALS: BP 100/66
[2018-03-13 07:43] VITALS: BP 123/68
--- NOTE | 2018-03-13 09:13 | CP SOUTH PROGRESS NOTE PSYCH ---
Psych (Inpt) Progress Note Progress Note Treatment team (VINCE, RN, OTR/L & Therapy staff, Psychiatrist) discussed the Pt. 's progress, treatment plan, and aftercare plans. Vital Signs Date Time Temp Pulse Resp B/P B/P Pulse O2 O2 Flow FiO2 Mean Ox Delivery Rate 03/13 0743 97.9 98 123/68 03/12 1934 97.9 79 100/66 03/12 1639 89 123/72 Mental Status Examination: Steve was alert and oriented to time, place, and person. She was calm and cooperative. She reported feeling "good"/not that depressed today. She showed normal range of affect. She denied feeling hopeless, she denied feeling worthless, and she denied wishing . She denied having thoughts of suicide and denied having thoughts of violence. She denied having any thoughts of homicide. There were no physical complaints and no withdrawal symptoms today. Progress denied hallucinations, denied feeling paranoid, and there were no delusions. She was coherent/there was no thought disorder. No deficits in short-term memory Assessment: Steve Hopkins (: ) is a 57-year-old White Female who was admitted to the inpatient psychiatric unit at [facility] on 03/04/2018 because of wishing . She has been free of thoughts of suicide since March 08, 2018. Diagnoses: Unspecified depressive disorder. Opioid use disorder. Treatment Plan Update: Continue Monistat vaginal cream x 1 more night Continue methadone 40 mg daily Continue Lexapro 20 mg daily Continue trazodone 150 mg at bedtime Continue gabapentin 600 mg 3 times daily Continue additional PRN Gabapentin 900 mg Q8 hours PRN (NTE: 2 doses PRN in 24 hours)
[2018-03-13 12:07] VITALS: BP 115/63
[2018-03-13 15:57] VITALS: BP 122/73
--- NOTE | 2018-03-13 17:16 | SOCIAL WORKER PROG NOTE PSYCH ---
Social Work Progress Note Progress Note Lacy Bowser LCSW faxed requested clinical information to the [facility]/admissions intake. Patient signed an LENNY for [facility] to communicate with the [facility] which was faxed to the [facility], attn: Day (by Solis Bowser). This brief writer received a call from Day stating that they faxed clinical to the [facility] in order to facilitate the transfer of Methadone treatment from [facility] to [facility]. This brief writer spoke with Rebeka, supervisor photostat at the [facility]. She stated that the clinical will be reviewed and she will contact this brief writer upon doing so. This brief writer's call back number was provided. This brief writer met with patient and provided update regarding the above information. Patient was frustrated that she would [facility]. "I want to go out and use, but I want to go to the program [[facility]] more." This brief writer assisted patient in identifying strategies to manage her frustration/anxiety. She stated that she would balance "alone time" and being out on the unit with peers. Patient denied any safety concerns. This brief writer spoke adele Marroquin at [facility] (admissions) to provide updates. She stated that once the transfer is authorized, patient will go to the [facility] until a bed is available in the Intensive Program.
[2018-03-13 19:34] VITALS: BP 101/68
--- NOTE | 2018-03-14 02:49 | CP SOUTH PROGRESS NOTE PSYCH ---
Psych (Inpt) Progress Note Progress Note Treatment team (VINCE, RN, OTR/L & Therapy staff, Psychiatrist) discussed the Pt. 's progress, treatment plan, and aftercare plans. Vital Signs Date Time Temp Pulse B/P B/P Pulse O2 FiO2 03/13 0743 97.9 98 123/68 03/12 1934 97.9 79 100/66 Mental Status Examination: Steve was alert and oriented to time, place, and person. She was calm and cooperative. She reported feeling "good"/not that depressed today. She showed normal range of affect. She denied feeling hopeless, she denied feeling worthless, and she denied wishing . She denied having thoughts of suicide and denied having thoughts of violence. She denied having any thoughts of homicide. She denied hallucinations, denied feeling paranoid, and there were no delusions. She was coherent/there was no thought disorder. No deficits in short-term memory Assessment: Steve Hopkins (: 1960) is a 57-year-old White Female who was admitted to the inpatient psychiatric unit at [facility] on 03/04/2018 because of wishing . She has been free of thoughts of suicide since March 08, 2018. She is agreeable to [facility] in [place], [place] Diagnoses: Unspecified Depressive disorder. Opioid use disorder. Treatment Plan Update: January discharge to [facility] in [place], [place] Treatment Plan Update: Continue Monistat vaginal cream x 1 more night Continue methadone 40 mg daily Continue Lexapro 20 mg daily Continue trazodone 150 mg at bedtime Continue gabapentin 600 mg 3 times daily Continue additional PRN Gabapentin 900 mg Q8 hours PRN (NTE: 2 doses PRN in 24 hours)
[2018-03-14 07:29] VITALS: BP 141/73
[2018-03-14 12:12] VITALS: BP 127/71
[2018-03-14] MEDS ORDERED: METHADONE HCL10 M1 PO ×2 (13:11→14:02)
[2018-03-14] MEDS ORDERED: TRAZODONE HCL150 M1 PO (13:11)
[2018-03-14] MEDS ORDERED: GABAPENTIN300 M2 PO (13:11)
[2018-03-14] MEDS ORDERED: NICORELIEF2 MG PO (13:11)
[2018-03-14] MEDS ORDERED: LEXAPRO20 M1 PO (13:11)
[2018-03-14] MEDS ORDERED: HYDROXYZINE HCL50 M1 PO (14:07)
--- NOTE | 2018-03-14 15:07 | SOCIAL WORKER PROG NOTE PSYCH ---
Social Work Progress Note Progress Note This newspaper writer spoke with Leigh Ann at the [facility], who requested a physical from [facility] and . The Medical Brief Addendum Note was first faxed; A History and Physical from 12/24/17 was faxed at 11:45am. She also requested a resident letter from [facility]. This newspaper writer left a vm for Day at [facility] at 10:10am regarding the request for the physical. Leigh Ann stated that a new physical could be completed during the intake if needed. This newspaper writer informed Cara that the physical has been faxed to [facility]. Cara stated that she would provide a residents letter to them when patient goes for the intake tomorrow at 6:30am. She stated that no other information is needed at this time and that the patient may present to [facility] today. In addition, Cara stated that an [facility] pre-approval did not need to be obtained. Cara stated that she has all needed documentation and only requests W10/Patient Health Summary upon discharge. This newspaper writer spoke with Cara at [facility] regarding the followin. 23/04 day contact: Dr. Lomsa, 2. Contact info for pending studies: Dr. Lomas, 3. Plan for follow up care: [facility], 4. Primary physician or site designated for follow up care: Dr. Quynh Mcmillan, [facility] This newspaper writer met with patient. She denied SI/HI/AH/VH and was eager to discharge to [facility] today. She understood that she would stay at the [facility] until a bed becomes avaialble at their inpatient/rehab, estimated about one week. Patient was informed that she will have an intake with [facility] tomorrow at 6:30am and, per Cara at [facility], a ride will be provided. She identified a safety plan in which she would immediately inform staff if feeling unsafe or other concerns. Patient was also informed of [facility] and provided with the information. Patient was agreeable to a ride from [facility]. This newspaper writer spoke with Tammi at 3:14pm at [facility] and a ride was scheduled. The drive will call when he is en route. No ETA was available. Faxed Referral(s) 1 Referred To: [facility] Transition of Care Documents sent: Health Summary, W10 Faxed to: [facility] Fax #: [phone] Faxed by: Abigail Whaley [facility] Date faxed: 03/14/18 Time Faxed: [phone] Faxed Referral(s) 2 Referred To: [facility] Documents sent: Health Summary, W10 Faxed to: [facility] - Cara Fax #: [phone] Faxed by: Abigail Whaley [employer] Date faxed: 03/14/18 Time Faxed: [phone]
[2018-03-14 15:50] VITALS: BP 106/69
--- NOTE | 2018-03-15 14:03 | SOCIAL WORKER PROG NOTE PSYCH ---
Social Work Progress Note Progress Note This principal technical writer received a vm from Day at [facility] ([phone]) requesting an update on this patient's discharge. She requested that I contact Lorie Servin with the update as Day would be away on vacation. This principal technical writer left a vm for Lorie Servin informing her that the patient discharged from [facility] yesterday, 03/14/18, and went to [facility]. Lorie Servin's extension: [phone]. This principal technical writer's call back number was provided in the voicemail.
== END 2018-03-14 18:16 | disposition other institution (70) | DRG 881 ==
LOC: ERH 16:06 → CP SOUTH 03-04 12:11 → ERHI 03-04 12:11 → CP SOUTH 03-04 14:14
PROVIDERS: Emergency Medicine
DX: F32.9 Major depressive disorder, single episode, unspecified (principal); F11.20 Opioid dependence, uncomplicated
CPT/HCPCS: 80307; 81001; 87086; 87491; 87591; 96372; G0480; J1200; J1630; J3101